=== PATIENT | female | born 1980 | race Caucasian/White ===

== ENCOUNTER → 2018-02-24 15:40 | Outpatient (REF) | payer MEDICAID, SELFPAY ==
[2018-02-26 14:46] LABS: Chlamydia Result Negative; GC Result Negative; Specimen Description CERVIX
== END ==
LOC: LBN 15:40
PROVIDERS: PCP Neuromusculoskeletal Medicine & OMM; Visit Provider Obstetrics & Gynecology Gynecology
DX: R10.2 Pelvic and perineal pain (principal); N76.0 Acute vaginitis
CPT/HCPCS: 87077; 87491; 87591; 87086; 87480; 87510; 87660

== ENCOUNTER 2018-11-11 12:16 | Outpatient (CLI) | payer MEDICAID, SELFPAY ==
[2018-11-11 12:43] LABS: HCT 39.2 % (36.0-46.0); HGB 13.1 g/dL (12.0-15.5); Mean Corp. HGB Concentration 33.4 g/dL (32.0-36.0); Mean Corpuscular Volume 86.9 fL (80-95); Mean Platelet Volume 11.8 fL (8.0-11.0); Platelet Count 240 x1000/uL (130-400); RBC 4.51 m/cumm (4.00-5.20); RBC Distribution Width 13.1 % (11.7-14.6); White Blood Cell Count 9.78 k/cumm (4.4-10.8)
[2018-11-11 13:53] LABS: Anion Gap 7.6 mmol/L (3-11); BUN 10 mg/dL (7-18); CO2 27.4 mmol/L (21.0-32.0); CREATININE 0.81 mg/dL (0.55-1.02); Calcium 8.5 mg/dL (8.5-10.1); Chloride 101 mmol/L (98-107); Glucose 225 mg/dL (70-100); Potassium 4.3 mmol/L (3.5-5.1); Sodium 136 mmol/L (136-145)
--- NOTE | 2018-11-27 12:23 | W.SURGCON ---
Date of service: 11/12/18 Time of Service: 15:00 History of Present Illness Chief Complaint: Intra-operative consultation for entry into abdomen Narrative: Asked to come into the operating room by Dr. Brewer and Dr. Jonas to assist with entry into the abdomen for a laparoscopic case. There was also mention of possible bowel injury. I gowned and gloved. There was a silk suture that per Dr. Brewer was attached to the possible bowel injury. They described adhesions of bowel to the abdominal wall. I inspected the wound and was unable to really see much. I decided to open the wound inferiorly with a ten blade through the dermis. I used cautery to transect the subcutanous tissue to get down to the fascia. The fascia was grasped with kockers on either side and opened with cuatery. I was able to the identify that the silk suture was actually on the peritoneum. Y did a finger sweep under the peritoneum and there were no adhesions noted. I then was able to look into the abdomen and saw the omentum draping over the bowel. There was no visible small bowel. There was no bruising on the omentum or bile noted. At this time I did not feel that there was indication for me to open the incision any wider as I could not see any bowel. Next I closed part of the distal portion of the fascia with a 0 Vicryl suture. Once it was closed I did another finger sweep. There was no bowel again visualized. I then placed the 11 mm port into the superior portion of the wound without the introducer tip. The abdomen was insufflated and the port was secured with the silk suture that had been placed by Dr. Brewer in the peritoneum. At that point I left the operating room for Dr. Jonas and Dr. Brewer to finish the case. 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) Personal history of cervical dysplasia (Acute 07/13/16) Contraceptive management (Resolved) IUD contraception (Resolved 03/06/16) Iron deficiency anemia (Resolved) Request for sterilization (Resolved) Left shoulder pain Rhinitis Surgical History Status post bilateral salpingectomy (Acute) History of colonoscopy (Resolved) Cervical Conization/LEEP Family History Mother Alcohol abuse Essential hypertension Father Diabetes Arthritis Sister Arthritis Asthma Social History Smoking/Tobacco Use Status: Never Alcohol Intake: current Alcohol Intake frequency: other Substance use type: does not use Do you feel safe at home: Yes Do you feel safe in your relationship?: Yes History History 5 Para 3 Hx # Term Pregnancies 3 Multiple births 1 Hx # Pregnancies 0 Ectopic pregnancies 0 AB induced 0 Hx Number of Living Children 4 AB spontaneous 1 Past Pregnancies Del. Date GA/Weeks # Outcome Route Wgt Sex Labor Lgth Anesthesia Location Prov Complic 12/07/04 38 No Successful vaginal 7 lb 6 oz Male [facility] 08/26/06 40 No Successful vaginal 8 lb [address] Rick 11/07/09 8 No Unsuccessful vaginal 03/18/13 38 Yes Successful vaginal Female aoc 02/28/17 37 No Successful vaginal 7 lb 8 oz Female Delivery Date: 02/28/17 On 11/10/18 @ 22:47 Lolly Guthrie Mikayla Piña Delivery Date: 03/18/13 On 11/10/18 @ 22:47 Lolly Guthrie 2nd twin [id number] Delivery Date: 11/07/09 On 11/10/18 @ 22:39 Lolly Guthrie SAB @ 8w EGA. No complications. Delivery Date: 08/26/06 No notes to display Delivery Date: 12/07/04 No notes to display Results Labs : 11/11/18 12:26 11/11/18 12:26
--- NOTE | 2018-11-27 12:33 | SCONE_ITS ---
Date of service: 11/12/18 Time of Service: 15:00 History of Present Illness Chief Complaint: Intra-operative consultation for entry into abdomen Narrative: Asked to come into the operating room by Dr. Brewer and Dr. Jonas to assist with entry into the abdomen for a laparoscopic case. There was also mention of possible bowel injury. I gowned and gloved. There was a silk suture that per Dr. Brewer was attached to the possible bowel injury. They described adhe sions of bowel to the abdominal wall. I inspected the wound and was unable to really see much. I decided to open the wound inferiorly with a ten blade through the dermis. I used cautery to transect the subcutanous tissue to get down to the fascia. The fascia was grasped with kockers on either side and opened with cuatery. I was able to the identify that the silk suture was actually on the peritoneum. Y did a finger sweep under the peritoneum and there were no adhesions noted. I then was able to look into the abdomen and saw the omentum draping over the bowel. There was no visible small bowel. There was no bruising on the omentum or bile noted. At this time I did not feel that there was in dication for me to open the incision any wider as I could not see any bowel. Next I closed part of the distal portion of the fascia with a 0 Vicryl suture. Once it was closed I did another finger sweep. There was no bowel again visualized. I then placed the 11 mm port into the superior portion of the wound without the introducer tip. The abdomen was insufflated and the port was secured with the silk suture that had been placed by Dr. Brewer in the peritoneum. At that point I left the operating room for Dr. Jonas and Dr. Brewer to finish the case. 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) Personal history of cervical dysplasia (Acute 07/13/16) Contraceptive management (Resolved) IUD contraception (Resolved 08/30/16) Iron deficiency anemia (Resolved) Request for sterilization (Resolved) Left shoulder pain Rhinitis Surgical History Status post bilateral salpingectomy (Acute) History of colonoscopy (Resolved) Cervical Conization/LEEP Family History Mother Alcohol abuse Essential hypertension Father Diabetes Arthritis Sister Arthritis Asthma Social History Smoking/Tobacco Use Status: Never Alcohol Intake: current Alcohol Intake frequency: other Substance use type: does not use Do you feel safe at home: Yes Do you feel safe in your relationship?: Yes History History 5 Para 3 Hx # Term Pregnancies 3 Multiple births 1 Hx # Pregnancies 0 Ectopic pregnancies 0 AB induced 0 Hx Number of Living Children 4 AB spontaneous 1 Past Pregnancies Del. Date GA/Weeks # Outcome Route Wgt Sex Labor Lgth Anesthesia Location Prov Complic 12/07/04 38 No Successful vaginal 7 lb 6 oz Male [facility] 08/26/06 40 No Successful vaginal 8 lb [address] Rick 11/07/09 8 No Unsuccessful vaginal 03/18/13 38 Yes Successful vaginal Female [facility] 02/28/17 37 No Successful vaginal 7 lb 8 oz Female Delivery Date: 02/28/17 On 11/10/18 @ 22:47 Lolly Guthrie Leonardmendozaziyad Piña Delivery Date: 03/18/13 On 11/10/18 @ 22:47 Lolly Guthrie 2nd twin [id number] Delivery Date: 11/07/09 On 11/10/18 @ 22:39 Lolly Guthrie SAB @ 8w EGA. No complications. Delivery Date: 08/26/06 No notes to display Delivery Date: 12/07/04 No notes to display Results Labs : 11/11/18 12:26 11/11/18 12:26
== END 2018-11-11 12:36 ==
PROVIDERS: PCP Neuromusculoskeletal Medicine & OMM; Visit Provider Obstetrics & Gynecology Gynecology
DX: Z30.2 Encounter for sterilization (principal); Z01.818 Encounter for other preprocedural examination
CPT/HCPCS: 36415; 80048; 85027; 86850; 86900; 86901

== ENCOUNTER 2018-11-12 14:14 | Observation (INO) | payer MEDICAID, SELFPAY ==
[2018-11-12] VITALS (15 sets, daily range): BP systolic 115–140; BP diastolic 68–86; PULSE 72–111; RESP 12–24; TEMP 36.2–37.8; O2SAT 92–100
[2018-11-12] MEDS: Lactated Ringers 1,000 ML 125 ML IV ×3 (08:00→13:56)
[2018-11-12] MEDS: PIPERACILLIN/TAZO 3.375 GM in Normal Saline 50 ML IVPB ×2 (10:35→18:46)
--- NOTE | 2018-11-12 11:10 | FALL_PTH ---
PATIENT: LUIS ANTONIO ORTEGA LOC: U#:[id number] AGE/SX: 38/F ROOM: [id number] RE11/12/[address]: Lolly Guthrie : 1980 BED: A DIS: 11/13/2018 SPEC #: [id number] RECD: 11/12/18 12:37 STATUS: TORSTEN REQ #: [id number] RAMIREZ: 11/12/18 11:[address]: Lolly Guthrie DEPT: Surgical Specimen RECD BY: Ronit Noriega ENTERED: 11/12/18 12:37 SP TYPE: Fall OTHR DR: Dick Estevez Tissues: 1 - FALLOPIAN TUBE (STERILIZATION) 2 - FALLOPIAN TUBE (STERILIZATION) Procedures: GROSS AND MICRO LEVEL 2 Comments: [id number]
[2018-11-12] MEDS: Bupivacaine 0.25% Pres-Free 30 ML VIAL (11:23)
--- NOTE | 2018-11-12 12:26 | W.PM.DSUDISC ---
Discharge Plan Disposition Patient Disposition: HOME Condition: Good Discharge Details Attending Provider: Lolly Guthrie Primary Care Provider: Dick Estevez Home Meds and New Rx's Prescriptions: No Action Vyvanse 20 mg capsule 20 mg PO DAILY RF: 0 oxycodone-acetaminophen [Percocet] 5-325 mg tablet 1 tab PO Q6H MDD 4 PRN (Reason: pain) Qty: 10 RF: 0 oxycodone 5 mg tablet 5 mg PO Q6H MDD 4 PRN (Reason: pain) Qty: 20 RF: 0 cetirizine [Zyrtec] 10 MG tablet 10 mg PO DAILY Qty: 30 RF: 3 trazodone 50 MG tablet 50 mg PO PRN Qty: 30 RF: 2 Mirena 1 EACH intrauterine device 1 ea Intrauterine ONCE Qty: 1 RF: 0 Discharge Instructions Additional Instructions: You have skin glue over your incsion. You may peel it off the incision in 5 days. You may bathe and shower. You will begin to have menses after the IUD removal. You may find that it is heavier than previously. Take the Oxycodone for pain along with the Ibuprofen for pain. Ovoid constipation. Stand Alone Forms: [facility] Post Gynecology Surgery, Skylar Hogan ([facility]) Activity:: Activity as Tolerated Diet:: As Tolerated Discharge Orders Discharge Orders: Discharge Order (Routine); Ordered 11/12/18 Ordered By: Lolly Guthrie DS: Diagnosis Discharge Diagnosis (1) Request for sterilization: Status: Acute
[2018-11-12] MEDS: fentaNYL 100 MCG/2 ML VIAL IVP ×4 (12:31→16:39)
[2018-11-12] MEDS: oxyCODONE 5 MG TAB PO (13:05)
[2018-11-12 14:28] LABS: HCT 39.7 % (36.0-46.0); HGB 13.3 g/dL (12.0-15.5); Mean Corp. HGB Concentration 33.5 g/dL (32.0-36.0); Mean Corpuscular Hemoglobin 28.4 pg (27.0-33.0); Mean Corpuscular Volume 84.6 fL (80-95); Mean Platelet Volume 11.5 fL (8.0-11.0); Platelet Count 270 x1000/uL (130-400); RBC 4.69 m/cumm (4.00-5.20); White Blood Cell Count 18.62 k/cumm (4.4-10.8)
[2018-11-12] MEDS: LORazepam 2 MG/ML VIAL 0.5 MG IVP ×3 (14:33→16:40)
--- NOTE | 2018-11-12 15:00 | SCONE_ITS ---
Date of service: 11/12/18 Time of Service: 15:00 History of Present Illness Chief Complaint: Intra-operative consultation for entry into abdomen Narrative: Asked to come into the operating room by Dr. Brewer and Dr. Jonas to assist with entry into the abdomen for a laparoscopic case. There was also mention of possible bowel injury. I gowned and gloved. There was a silk suture that per Dr. Brewer was attached to the possible bowel injury. They described adhesions of bowel to the abdominal wall. I inspected the wound and was unable to really see much. I decided to open the wound inferiorly with a ten blade through the dermis. I used cautery to transect the subcutanous tissue to get down to the fascia. The fascia was grasped with kockers on either side and opened with cuatery. I was able to the identify that the silk suture was actually on the peritoneum. Y did a finger sweep under the peritoneum and there were no adhesions noted. I then was able to look into the abdomen and saw the omentum draping over the bowel. There was no visible small bowel. There was no bruising on the omentum or bile noted. At this time I did not feel that there was indication for me to open the incision any wider as I could not see any bowel. Next I closed part of the distal portion of the fascia with a 0 Vicryl suture. Once it was closed I did another finger sweep. There was no bowel again visualized. I then placed the 11 mm port into the superior portion of the wound without the introducer tip. The abdomen was insufflated and the port was secured with the silk suture that had been placed by Dr. Brewer in the peritoneum. At that point I left the operating room for Dr. Jonas and Dr. Brewer to finish the case. 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) Personal history of cervical dysplasia (Acute 07/13/16) Contraceptive management (Resolved) IUD contraception (Resolved 03/06/16) Iron deficiency anemia (Resolved) Request for sterilization (Resolved) Left shoulder pain Rhinitis Surgical History Status post bilateral salpingectomy (Acute) History of colonoscopy (Resolved) Cervical Conization/LEEP Family History Mother Alcohol abuse Essential hypertension Father Diabetes Arthritis Sister Arthritis Asthma Social History Smoking/Tobacco Use Status: Never Alcohol Intake: current Alcohol Intake frequency: other Substance use type: does not use Do you feel safe at home: Yes Do you feel safe in your relationship?: Yes History History 5 Para 3 Hx # Term Pregnancies 3 Multiple births 1 Hx # Pregnancies 0 Ectopic pregnancies 0 AB induced 0 Hx Number of Living Children 4 AB spontaneous 1 Past Pregnancies Del. Date GA/Weeks # Outcome Route Wgt Sex Labor Lgth Anesthesia Location Prov Complic 12/07/04 38 No Successful vaginal 7 lb 6 oz Male [facility] 08/26/06 40 No Successful vaginal 8 lb [address] Rick 11/07/09 8 No Unsuccessful vaginal 03/18/13 38 Yes Successful vaginal Female aoc 02/28/17 37 No Successful vaginal 7 lb 8 oz Female Delivery Date: 02/28/17 On 11/10/18 @ 22:47 Lolly Guthrie [facility] Delivery Date: 03/18/13 On 11/10/18 @ 22:47 Lolly Guthrie 2nd twin [id number] Delivery Date: 11/07/09 On 11/10/18 @ 22:39 Lolly Guthrie SAB @ 8w EGA. No complications. Delivery Date: 08/26/06 No notes to display Delivery Date: 12/07/04 No notes to display Results Labs : 11/11/18 12:26 11/11/18 12:26 CC:
--- NOTE | 2018-11-12 15:16 | DI.US_ITS ---
SYMPTOMS/DIAGNOSIS: POSTOP PAIN PELVIC ULTRASOUND: Dr. Guthrie was present during the examination. Limited transvaginal examination was performed. The uterus has a normal appearance. The left ovary could not be visualized during the examination. The right ovary measures 3.1 x 2.2 x 2.0 cm. There are follicular cysts present. There is normal blood flow seen to the right ovary. No evidence of torsion is seen. There is free fluid adjacent to the right ovary, approximately 70 cc of fluid is seen. The fluid appears clear. IMPRESSION: 1. Limited postoperative pelvic ultrasound. 2. No gross organ abnormality. 3. Small to moderate amount of free fluid adjacent to the right ovary.
--- NOTE | 2018-11-12 15:51 | ROE_ITS ---
Date of service: 11/12/18 Time of Service: 15:47 Operative Note DATE OF PROCEDURE: 11/12/18 PRE-OP DIAGNOSIS: mulitparity desires sterilization POST-OP DIAGNOSIS: same PROCEDURE: laparoscopic bilateral salpingectomy SURGEON: Lolly Guthrie STUNT WOMAN: Symone Reynolds ANESTHESIA: GETA ESTIMATED BLOOD LOSS: 10 PATHOLOGY: other (bialteral fallopian tubes to pathology) COMPLICATIONS: None Patient was transported to: PACU Patient's condition: stable Indications: 38yo G5, P3L4 female who requested permanent sterilization. She also wished to have her Mirena IUD removed at the time of surgery. Findings: Nl pelvis and adnexa. 1cm paratubal cyst on L fallopian tube Description of the procedure: Patient was taken to the operating room which is placed in the dorsal supine position and general endotracheal anesthesia was administered without difficulty. She was then prepped and draped in the usual sterile fashion. An in and out catherization of the urinary bladder was performed with 200cc of clear susy urine returned. The umbilical fold was infiltrated with quarter percent Marcaine and a scalpel was used to make a vertical 11 mm incision in the umbilical fold. Subcutaneous tissue was bluntly dissected and the rectus fascia was tented up and entered with scalpel and then curved Resendiz scissors. My initial impression was that there had been an entree into a viscous organ. I was unable to appreciate the peritoneal surface digitally and requested Dr. Reynolds to inspect the incision. Dr. Montgomery kindly came to the operating room scrubbed in and extended the vertical incision another 2 cm caudally. This allowed us to incise and mobilize the rectus fascia which allowed better visualization of the initial incision. R einspection of the peritoneal incision confirmed that there was no inadvertant entree into the bowel or adjacent organs with the first incision . The extension of the rectus facia incision was closed with a running 0-Vicryl suture enough to allow placement of a 11 mm trocar and sleeve through the incision. Insufflation with CO2 was used to achieve a pneumoperitoneum. Dr. Reynolds then departed the case. Patient was placed in Trendelenburg and under direct visualization two 5 mm port sites were placed left and right of the midline approximately 6 cm diagonal to the umbilical port. The abdomen was carefully inspected with the above-noted findings. The right fallopian tube was grasped at its fimbriated end tented up and the mesosalpinx was clamped cauterized and incised in a sequential fashion to the level of the right uterine cornua the right uterine cornua was then clamped cauterized and transected and the right fallopian tube and delivered through the 11 mm port. The right fallopian tube pedicle was inspected and noted be hemostatic. Similar technique was carried out on the contralateral fallopian tube. The fallopian tube was removed in its entirety and the left fallopian tube pedicle was noted to be hemostatic. After final inspection of both pedicles pneumoperitoneum was reduced and the right and left 5mm trochars were removed under direct visualization. The Bernard port was removed which allowed decompression of the patient's abdomen. The remaining portion of the rectus fascia incsion was grasped and closed in a running fashion using 0 Vicryl. A second layer of 0 Vicryl was used to close the space above the rectus fascia. The skin of the lower port sites was reapproximated with 4-0 Monocryl in a subcuticular fashion. The skin of the umbilical port site was closed with 4-0 Vicryl in a subcuticular fashion. All incisions were sealed with skin glue. Pt received an intraoperative dose of Zosyn when there was a concern that there had been an injury to the bowel. SCDs in place throughout the entire case. All sponge lap needle counts were correct x2
[2018-11-12] MEDS: HYDROmorphone 2 MG/ML VIAL 1 MG IVP ×2 (16:32→21:32)
--- NOTE | 2018-11-12 16:45 | W.PM.HP.N ---
Date of service: 11/12/18 Time of Service: 16:46 Assessment and Plan (1) Post-op pain: Current visit: Yes Status: Acute Patient will change oral and IV narcotics and observe overnight. History of Present Illness Chief Complaint: Post-operative pain Narrative: Patient is a 38-year-old G4, P3 female who underwent a laparoscopic bilateral salpingectomy earlier today. The surgery was uncomplicated and she was returned to the same day surgery unit and prepared for discharge when she developed bilateral sharp stabbing pain lower abdomen. At the time she was sitting on the bed on the gurney attempting to void. Vital signs are stable she was evaluated by the EC and a service recommended additional fentanyl IV dosing. After approximately 45 minutes 2 doses of 50 mcg IV fentanyl she continued to complain of bilateral pelvic pain. She is unable to get through the pain describing as reminiscent of labor pain and unremitting. An in and out catheterization was performed and 600 cc of clear susy urine was returned. however did nothing to relieve her discomfort. Bedside abd/pelvic u/s was performed. R ovarian cyst present. 70cc of free pelvic fluid unchanged in amount from the beginning to the end of the study. H/H 13.3/39.7. I recommended that the pt be observed overnight for pain control. 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) Personal history of cervical dysplasia (Acute 07/13/16) Request for sterilization (Resolved) Contraceptive management (Resolved) IUD contraception (Resolved 03/06/16) Iron deficiency anemia (Resolved) Left shoulder pain Rhinitis Surgical History Status post bilateral salpingectomy (Acute) Cervical Conization/LEEP Family History Mother Alcohol abuse Essential hypertension Father Diabetes Arthritis Sister Arthritis Asthma Social History Smoking/Tobacco Use Status: Never Alcohol Intake: current Alcohol Intake frequency: other Substance use type: does not use Do you feel safe at home: Yes History History 5 Para 3 Hx # Term Pregnancies 3 Multiple births 1 Hx # Pregnancies 0 Ectopic pregnancies 0 AB induced 0 Hx Number of Living Children 4 AB spontaneous 1 Past Pregnancies Del. Date GA/Weeks # Outcome Route Wgt Sex Labor Lgth Anesthesia Location Prov Complic 12/07/04 38 No Successful vaginal 7 lb 6 oz Male [facility] 08/26/06 40 No Successful vaginal 8 lb [address] Rick 11/07/09 8 No Unsuccessful vaginal 03/18/13 38 Yes Successful vaginal Female aoc 02/28/17 37 No Successful vaginal 7 lb 8 oz Female Delivery Date: 02/28/17 On 11/10/18 @ 22:47 Lolly Guthrie Mikayla Piña Delivery Date: 03/18/13 On 11/10/18 @ 22:47 Lolly Guthrie 2nd twin [id number] Delivery Date: 11/07/09 On 11/10/18 @ 22:39 Lolly Guthrie SAB @ 8w EGA. No complications. Delivery Date: 08/26/06 No notes to display Delivery Date: 12/07/04 No notes to display Meds Home Medications Medication Instructions Recorded Confirmed Type cetirizine [Zyrtec] 10 mg PO DAILY #30 tab-cap 08/08/16 11/12/18 History trazodone 50 mg PO PRN #30 tab-cap 08/08/16 11/11/18 History levonorgestrel [Mirena] 1 ea INTRAUTERINE ONCE #1 implant 05/14/17 11/11/18 Rx lisdexamfetamine 20 mg capsule 20 mg PO DAILY 10/07/18 11/12/18 History oxycodone-acetaminophen 5 mg-325 1 tab PO Q6H PRN #10 tab MDD 4 11/10/18 11/11/18 Rx mg tablet oxycodone 5 mg tablet 5 mg PO Q6H PRN #20 tab MDD 4 11/12/18 11/12/18 Rx Allergies Allergy/AdvReac Type Severity Reaction Status Date / Time devyn flavor Allergy Severe severe Unverified 11/12/18 07:25 hives/throat swelling Exam Const General: other (pain improved but not resolved.) Nutritional Appearance: obese Orientation: alert, awake and oriented x3 Resp Effort & Inspection: normal respiratory effort Auscultation: clear to auscultation bilaterally Cardio Palpation: normal PMI Rate: regular rate Rhythm: regular rhythm GI Palpation: soft, tender (-No incisional pain) and other General: deferred (Mirena as removed to recovery area. No vaginal bleeding noted at that time) Results Labs : 11/12/18 14:20 Laboratory Results - last 24 hr 11/12/18 14:20 WBC 18.62 H D RBC 4.69 Hgb 13.3 Hct 39.7 MCV 84.6 MCH 28.4 MCHC 33.5 RDW 13.0 Plt Count 270 MPV 11.5 H Last Vital Signs Temp 100.0 F H 11/12/18 15:25 Pulse 92 H 11/12/18 15:25 Resp 18 11/12/18 15:25 BP 115/68 11/12/18 15:25 Pulse Ox 94 L 11/12/18 15:25
--- NOTE | 2018-11-12 17:38 | NUR.NOTE ---
Nursing Note: 1511H Patient admitted on Med/surg floor from PACU via stretcher. Alert and oriented x3. VSS. Pain scale 10/10 in her bilateral flank as per patient. Trochar sites exposed to air clean dry and intact. No complaints of nausea/vomiting. Oriented patient to room. Call esqueda with in reach
[2018-11-12] MEDS: Ketorolac 30 MG/ML VIAL IVP ×2 (18:27→23:37)
[2018-11-12] MEDS: Docusate Sodium 100 MG CAP PO (20:08)
[2018-11-12] MEDS: HYDROmorphone 2 MG TAB PO (20:08)
[2018-11-12] MEDS: diphenhydrAMINE 25 MG CAP PO (20:25)
[2018-11-13] VITALS: BP 124/83; PULSE 95; RESP 20; TEMP 36.3; O2SAT 93
[2018-11-13] MEDS: Lactated Ringers 1,000 ML 125 ML IV (01:47)
[2018-11-13] MEDS: HYDROmorphone 2 MG/ML VIAL 1 MG IVP (03:17)
[2018-11-13] MEDS: PIPERACILLIN/TAZO 3.375 GM in Normal Saline 50 ML IVPB (03:26)
[2018-11-13 03:30] VITALS: O2SAT 96
[2018-11-13 03:54] VITALS: BP 120/82; PULSE 96; RESP 14; TEMP 36.4; O2SAT 96
[2018-11-13] MEDS: Ketorolac 30 MG/ML VIAL IVP (06:40)
--- NOTE | 2018-11-13 07:28 | W.PM.DS.N ---
Date of service: 11/13/18 Time of Service: 07:28 DS: Diagnosis Discharge Diagnosis (1) Post-op pain: Status: Acute (2) Status post bilateral salpingectomy: Status: Acute Discharge Plan Disposition Patient Disposition: HOME Condition: Improving Discharge Details Admit Date/Time: 11/12/18 14:14 Admit Provider: Lolly Guthrie Attending Provider: Lolly Guthrie Primary Care Provider: Dick Estevez [facility] Course Hospital Course: Pt presented to [facility] the morning of surgery and underwent a laparoscopic bilateral salpingectomy without complications. In the recovery area she experienced lower pelvic pain that was not relieved with additional doses of Fentanyl and required Lorazepam for anxiety. Based on her continued narcotic requirement she was admitted for overnight observation. Her pain subsided and she was ready for discharge the morning after surgery. Home Meds and New Rx's Prescriptions: No Action Vyvanse 20 mg capsule 20 mg PO DAILY RF: 0 oxycodone-acetaminophen [Percocet] 5-325 mg tablet 1 tab PO Q6H MDD 4 PRN (Reason: pain) Qty: 10 RF: 0 oxycodone 5 mg tablet 5 mg PO Q6H MDD 4 PRN (Reason: pain) Qty: 20 RF: 0 cetirizine [Zyrtec] 10 MG tablet 10 mg PO DAILY Qty: 30 RF: 3 trazodone 50 MG tablet 50 mg PO PRN Qty: 30 RF: 2 Mirena 1 EACH intrauterine device 1 ea Intrauterine ONCE Qty: 1 RF: 0 Discharge Instructions Additional Instructions: You have skin glue over your incsion. You may peel it off the incision in 5 days. You may bathe and shower. You will begin to have menses after the IUD removal. You may find that it is heavier than previously. Take the Oxycodone for pain along with the Ibuprofen for pain. Ovoid constipation. Stand Alone Forms: [facility] Post Gynecology Surgery, Skylar Hogan ([facility]) Activity:: Activity as Tolerated Equipment/Supplies:: No Equipment Needed Diet:: As Tolerated Discharge Orders Discharge Orders: Discharge Order (Routine); Ordered 11/13/18 Ordered By: Lolly Guthrie Exam Const General: no acute distress Nutritional Appearance: obese Orientation: alert, awake and oriented x3 Skin General skin exam: ecchymosis (along umbilical port site) and scars (intact. covered with skin glue) Lesions: no lesions DS: Data Vitals/I&O Vitals and I&O: Vital Signs Temperature 97.5 F L 11/13/18 03:54 Temperature Source Tympanic 11/13/18 03:54 Pulse 96 H 11/13/18 03:54 Pulse Rhythm Regular 11/13/18 03:30 Respiratory Rate 14 11/13/18 03:54 Respiratory Effort Non-Labored 11/13/18 03:30 Respiratory Depth Normal 11/13/18 03:30 Respiratory Pattern Normal 11/13/18 03:30 Blood Pressure 120/82 11/13/18 03:54 Pulse Oximetry 96 11/13/18 03:54 Respiratory End-tidal CO2 34 11/12/18 12:40 Oxygen Delivery Method Room Air 11/13/18 03:54 Oxygen Flow Rate 0 11/13/18 03:54 Pain Level 7 11/13/18 03:30 Intake & Output 11/12/18 11/12/18 11/13/18 11:59 23:59 11:59 Intake Total 1600 / 2796.25 1196.25 / 2796.25 747.917 / 747.917 Output Total 500 / 500 Balance 1600 / 2296.25 696.25 / 2296.25 747.917 / 747.917 Weight 229 lb 0.964 oz Intake: IV 1600 / 2706.25 1106.25 / 2706.25 497.917 / 497.917 Oral 90 / 90 250 / 250 Output: Urine 500 / 500 Other: Urine Color Yellow Urine Appearance Clear Clear Urine Odor None Emesis Description None None Voiding Methods Toilet Labs on day of discharge: Labs from last 24 hours 11/12/18 14:20 WBC 18.62 H D RBC 4.69 Hgb 13.3 Hct 39.7 MCV 84.6 MCH 28.4 MCHC 33.5 RDW 13.0 Plt Count 270 MPV 11.5 H PFSH Medical History Post-op pain (Acute) History of female sterilization (Acute) Adjustment disorder with anxiety (Acute 12/26/16) Allergic rhinitis (Acute 10/11/14) Asthma (Acute 10/11/14) 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) Personal history of cervical dysplasia (Acute 07/13/16) Request for sterilization (Resolved) Contraceptive management (Resolved) IUD contraception (Resolved 03/06/16) Iron deficiency anemia (Resolved) Left shoulder pain Rhinitis Surgical History Status post bilateral salpingectomy (Acute) Cervical Conization/LEEP Family History Mother Alcohol abuse Essential hypertension Father Diabetes Arthritis Sister Arthritis Asthma Social History Smoking/Tobacco Use Status: Never Alcohol Intake: current Alcohol Intake frequency: other Substance use type: does not use Do you feel safe at home: Yes History History 5 Para 3 Hx # Term Pregnancies 3 Multiple births 1 Hx # Pregnancies 0 Ectopic pregnancies 0 AB induced 0 Hx Number of Living Children 4 AB spontaneous 1 Past Pregnancies Del. Date GA/Weeks # Outcome Route Wgt Sex Labor Lgth Anesthesia Location Prov Complic 12/07/04 38 No Successful vaginal 7 lb 6 oz Male [facility] 08/26/06 40 No Successful vaginal 8 lb [address] Rick 11/07/09 8 No Unsuccessful vaginal 03/18/13 38 Yes Successful vaginal Female aoc 02/28/17 37 No Successful vaginal 7 lb 8 oz Female Delivery Date: 02/28/17 On 11/10/18 @ 22:47 Lolly Guthrie [facility] Pi[facility] Delivery Date: 03/18/13 On 11/10/18 @ 22:47 Lolly Guthrie 2nd twin [id number] Delivery Date: 11/07/09 On 11/10/18 @ 22:39 Lolly Guthrie SAB @ 8w EGA. No complications. Delivery Date: 08/26/06 No notes to display Delivery Date: 12/07/04 No notes to display
[2018-11-13 07:35] VITALS: BP 98/62; PULSE 102; RESP 18; TEMP 36.5; O2SAT 98
--- NOTE | 2018-11-13 08:05 | PDOC.CMIN ---
- If Service Date Differs Date of service: 11/13/18 Time of Service: 08:05 Care Management Initial Assess REASON FOR HOSPITALIZATION:: Post op pain PAST MEDICAL HISTORY/PAST SURGICAL HISTORY:: Post-op pain (Acute). History of female sterilization (Acute). Adjustment disorder with anxiety (Acute 12/26/16). Allergic rhinitis (Acute 10/11/14). Asthma (Acute 10/11/14). 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 Personal history of cervical dysplasia (Acute 07/13/16). Request for sterilization (Resolved). Contraceptive management (Resolved). IUD contraception (Resolved 03/06/16). Iron deficiency anemia (Resolved). Left shoulder pain. Rhinitis. Status post bilateral salpingectomy (Acute). Cervical Conization/LEEP PREVIOUS FUNCTIONAL STATUS/SOCIAL/FAMILY SUPPORTS:: Angeline resides with her five children in [place] whom range from 13 y/o to 20 months. She reports that she has family whom reside locally and are supportive. 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 She is independent at baseline, drives, and manages ADL's CURRENT FUNCTIONAL STATUS:: Currently Angeline is sitting up in her chair with a cool cloth on her head. She reports that she is in pain, and that she has been discharged. ADVANCE DIRECTIVES:: None on file Has patient been provided with information about the portal?: No Did the patient sign up for the portal?: No (already signed up) CODE STATUS:: Full Code INSURANCE COVERAGE / FINANCIAL ISSUES:: [employer] CURRENT HOME/COMMUNITY SERVICES/EQUIPMENT:: Currently Angeline has no services or medical equipment in the community. PRIMARY CARE PHYSICIAN:: Dick Estevez POTENTIAL DISCHARGE NEEDS:: F/U appointment with Dr. Guthrie PATIENT/FAMILY EDUCATION NEEDS:: Review DC instructions, any limitations, and ongoing DC planning discussion. Discuss 'Ask Me Three' ANTICIPATED BARRIERS TO DISCHARGE:: None identified at this time. TRANSPORTATION:: Via private vehicle with mom PLAN:: Angeline will return home today with no services. She will F/U with Dr. Guthrie and plan of care as prescribed. Angeline's mom will transport her home.
[2018-11-13] MEDS: Docusate Sodium 100 MG CAP PO (08:09)
[2018-11-13] MEDS: HYDROmorphone 2 MG TAB PO (08:55)
--- NOTE | 2018-11-13 10:07 | PDOC.CMDIS ---
- If Service Date Differs Date of service: 11/13/18 Time of Service: 10:07 LACE Index Scoring Tool - Questions: Length of Stay (in days): 1 Acuity (Admit via E.D.?): No E.D. Visits: 0 - Answers: Total Score: 1 Risk of Readmission: Low Risk Care Management Discharge Reason for Hospitalization: Post op pain Discharge Plan: Angeline will return home today with no services. She will F/U with PCP and plan of care as prescribed. Angeline's mom will transport her home. Patient/Family Education Needs: Review DC instructions, any limitations, and discuss 'Ask Me Three'
== END 2018-11-13 10:13 | disposition home or self-care (01) ==
LOC: MS 16:29
PROVIDERS: Admitting Provider Obstetrics & Gynecology Gynecology; PCP Neuromusculoskeletal Medicine & OMM; Visit Provider Obstetrics & Gynecology Gynecology
PROC: 0UB74ZZ Excision of Bilateral Fallopian Tubes, Percutaneous Endoscopic Approach (ICD-10-PCS; CPT 58661; principal; 2018-11-12 09:00)
DX: G89.18 Other acute postprocedural pain (principal); Z90.79 Acquired absence of other genital organ(s); Z30.2 Encounter for sterilization; R10.2 Pelvic and perineal pain; Z30.432 Encounter for removal of intrauterine contraceptive device; N83.8 Other noninflammatory disorders of ovary, fallopian tube and broad ligament
CPT/HCPCS: 58661; 36415; 85027; 76830; 88302; G0378; J0131; J1100; J1885; J2060; J2250; J2405; J2543; J3010

== ENCOUNTER 2018-11-14 19:27 | Inpatient (IN) | payer MEDICAID, SELFPAY ==
[2018-11-14] VITALS (7 sets, daily range): BP systolic 96–119; BP diastolic 59–68; PULSE 102–112; RESP 20–32; TEMP 36.6–37.1; O2SAT 91–96
--- NOTE | 2018-11-14 19:52 | DI.CT_ITS ---
SYMPTOM/DIAGNOSIS: HYPOXIA, TACHYCARDIA, ABD PAIN, S/P TUBAL LIGATION, SOB PE CHEST CT: CT angiography was performed with multi slice acquisition and multi planar and 3D reconstruction. No evidence of pulmonary emboli or aortic dissection or aneurysm. Dependent changes are seen in the posterior lungs. There are small bilateral pleural effusions, right greater than left. The heart size is normal. No pericardial effusion is seen. There is no evidence of adenopathy or focal infiltrate. IMPRESSION: Small bilateral pleural effusions. No evidence of pulmonary emboli. ABDOMEN AND PELVIC CT: The exam is limited by patient motion. The liver shows fatty infiltration. The spleen, gallbladder, pancreas, kidneys and adrenals are unremarkable. The patient is status post surgery 2 days ago for ruptured ovarian cyst/tubal ligation. Fluid is seen in the pelvis as well as in the mesentery. There is residual free air, also presumably post surgical. There is a question of some mild bowel wall thickening of loops of small bowel in the upper abdomen. No focal abscess is seen. The bladder is unremarkable. The ovaries are not well seen as they are surrounded by fluid. There is soft tissue stranding in the anterior subcutaneous fat consistent with recent surgery. IMPRESSION: Abdominal and pelvic ascites as well as free air presumably post surgical. No abscess is identified. There is mild wall thickening of small bowel loops in the upper mid abdomen without evidence of obstruction. The findings could be reactive.
--- NOTE | 2018-11-14 19:53 | ED.GENADUL_ITS ---
Discharge Plan Disposition Patient Disposition: [facility] INPATIENT Condition: Stable Discharge Details Chief Complaint: Abd Prob Clinical Impression: Post-op pain, Leukocytosis Admit Date/Time: 11/14/18 23:26 Admit Provider: Carlos Dumont Attending Provider: Carlos Dumont Primary Care Provider: Dick Estevez ED Provider: Grant Koroma Discharge Data Discharge Date/Time-TO BE ENTERED AT DEPARTURE: 11/15/18 00:31 Medical Decision Making 38 yo female who underwent a laparoscopic bilateral salpingectomy without complications on Saturday and admitted overnight for pain control comes in with cntinued increased pain, nausea despite home pain meds. Her abdomen does have some distention and has tenderness throughout on exam without guarding or rebound on exam. Incision without signs of infection. She is noted to have an o2 saturation of 91% on room air and HR of 105. Given recent surgery and her symptoms and vitals will obtian lab work and imaging to eval for Pe and also abscess vs sbo among other abdominal surgical pathology pt's labs show wbc of 28, on my read of ct has small bilateral pleural effusions and free fluid in the abdomen. Blood cultures ordered, lactate reassuring. Spoke with Dr. Craven from obn who will come see the pt and will order zosyn Vrad report reviewed and confirm bilateral small effusions and free fluid in the abodmen and small amount of pneumoperitoneum. Dr. Craven seeing the pt now, operative note states there was concern about possible bowel injury, will consult with general surgery as well as concern for possible bowel performation Differential Diagnosis sbo, abscess, pe Medical Records Medical records reviewed: Yes I reviewed the patient's medical records. Imaging Data Radiologic Study: Attestation: I personally reviewed and interpreted this imaging study as follows: Imaging: CT Scan Radiologist's impression: IMPRESSION: Aside from mild enteritis in some small bowel loops at the midabdomen, the r emainder of the abdominal pelvic findings are most likely post operative in etiology. The low to moderate volume abdominal ascites are most likely related to residual ruptured cyst fluid, with a likely superimposed postoperative component. There is no discrete evidence of abscess formation at this time, however followup is recommended if patient develops concerning clinical symptoms. IMPRESSION: 1. No pulmonary emboli within the main pulmonary arteries or proximal segmental branches. Distal segmental branches are not confidently evaluated due to motion artifact. 2. Small bilateral layering pleural effusions, larger on the right. 3. Bilateral pulmonary atelectasis, as detailed above. Lab Data Lab results reviewed: Yes I reviewed the patient's lab results. ECG Data Attestation: I personally reviewed and interpreted this ECG (s) as follows: Prior ECG tracings: not available for review Interpretation: sinus rhythm, rate of 103, pr 142, no acute st t wave ischemic findings HPI General Mode of arrival: wheelchair . Date/Time Provider Initiated Documentation: 11/14/18 19:40 . Limitations to Documentation: no limitations . Information obtained by: patient . History of Present Illness 38 year old F presents to the emergency department with the chief complaint of abdominal pain, described as severe, Quality is described as aching, Patient started experiencing this day(s) (1) and it has been constant. No relieving factors improve symptom(s), No exacerbating factors reported . Patient notes nausea/vomiting. Patient did receive the following treatments prior to arrival, none Related Data Home Medications Medication Instructions Recorded Confirmed cetirizine [Zyrtec] 10 mg PO DAILY #30 tab-cap 08/08/16 11/14/18 trazodone 50 mg PO PRN #30 tab-cap 08/08/16 11/14/18 lisdexamfetamine 20 mg capsule 20 mg PO DAILY 10/07/18 11/14/18 oxycodone-acetaminophen 5 mg-325 1 tab PO Q6H PRN #10 tab MDD 4 11/10/18 11/11/18 mg tablet oxycodone 5 mg tablet 5 mg PO Q6H PRN #20 tab MDD 4 11/12/18 11/14/18 hydromorphone 2 mg tablet 2 mg PO Q6H PRN #4 tab MDD 4 11/13/18 11/14/18 Previous Rx's Medication Instructions Recorded oxycodone-acetaminophen 5 mg-325 1 tab PO Q6H PRN #10 tab MDD 4 11/10/18 mg tablet oxycodone 5 mg tablet 5 mg PO Q6H PRN #20 tab MDD 4 11/12/18 hydromorphone 2 mg tablet 2 mg PO Q6H PRN #4 tab MDD 4 11/13/18 Allergies Allergy/AdvReac Type Severity Reaction Status Date / Time devyn flavor Allergy Severe severe Unverified 11/14/18 19:39 hives/throat swelling General Stated Complaint: Abd Prob ALINE: 3 Review of Systems Review of Systems All systems reviewed & are unremarkable except as noted in HPI and below Constitutional Denies chills, Denies fever(s) and Denies weakness ENT Denies change in voice Respiratory Denies cough Gastrointestinal Denies vomiting Integumentary/Breasts Denies rash Neurologic Denies weakness PFSH Medical History Post-op pain (Acute) History of female sterilization (Acute) Adjustment disorder with anxiety (Acute 12/26/16) Allergic rhinitis (Acute 10/11/14) Asthma (Acute 10/11/14) 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) Personal history of cervical dysplasia (Acute 07/13/16) Contraceptive management (Resolved) IUD contraception (Resolved 03/06/16) Iron deficiency anemia (Resolved) Request for sterilization (Resolved) Left shoulder pain Rhinitis Surgical History Status post bilateral salpingectomy (Acute) History of colonoscopy (Resolved) Cervical Conization/LEEP Family History Mother Alcohol abuse Essential hypertension Father Diabetes Arthritis Sister Arthritis Asthma Social History Smoking/Tobacco Use Status: Never Alcohol Intake: current Alcohol Intake frequency: other Substance use type: does not use Do you feel safe at home: Yes Do you feel safe in your relationship?: Yes History History 5 Para 3 Hx # Term Pregnancies 3 Multiple births 1 Hx # Pregnancies 0 Ectopic pregnancies 0 AB induced 0 Hx Number of Living Children 4 AB spontaneous 1 Past Pregnancies Del. Date GA/Weeks # Outcome Route Wgt Sex Labor Lgth Anesthesia Location Prov Complic 12/07/04 38 No Successful vaginal 3.345 kg Male [facility] 08/26/06 40 No Successful vaginal 3.[address] Rick 11/07/09 8 No Unsuccessful vaginal 03/18/13 38 Yes Successful vaginal Female aoc 02/28/17 37 No Successful vaginal 3.402 kg Female Delivery Date: 02/28/17 On 11/10/18 @ 22:47 Lolly Guthrie Yungindra DuncanWang Delivery Date: 03/18/13 On 11/10/18 @ 22:47 Lolly Guthrie 2nd twin [id number] Delivery Date: 11/07/09 On 05/06/19 @ 22:39 Lolly Guthrie SAB @ 8w EGA. No complications. Delivery Date: 08/26/06 No notes to display Delivery Date: 12/07/04 No notes to display Exam Const General: no acute distress Orientation: alert HENMT Head: normal to inspection Ears: external ears normal General nose exam: external nose normal Mouth: moist mucous membranes Eyes General: appearance normal, both eyes and all related structures Neck Neck: normal visual inspection Resp Effort & Inspection: normal respiratory effort and able to speak in complete sentences Cardio Rate: regular rate GI Inspection: other (midline incision below umbilicus without discharge or erythema) Skin General skin exam: no rashes or lesions noted Neuro General: alert and oriented x3 Extrem General: normal to inspection Psych Mental Status: mental status grossly normal Course Vital Signs Temperature 37.0 C 11/14/18 19:31 Pulse 109 H 11/14/18 19:31 Respiratory Rate 20 11/14/18 19:31 Blood Pressure 113/68 11/14/18 19:31 Pulse Oximetry 91 L 11/14/18 19:31 Temperature 37.0 C 11/14/18 19:31 Temperature Source Skin 11/14/18 19:31 Pulse 109 H 11/14/18 19:31 Respiratory Rate 20 11/14/18 19:31 Respiratory Effort Non-Labored 11/14/18 19:37 Blood Pressure 113/68 11/14/18 19:31 Pulse Oximetry 91 L 11/14/18 19:31 Oxygen Delivery Method Room Air 11/14/18 19:31 Oxygen Flow Rate 0 11/14/18 19:31 Pain Level 9 11/14/18 19:51
[2018-11-14] MEDS: Ketorolac 15 MG/ML VIAL IVP (20:04)
[2018-11-14] MEDS: Omnipaque 350 MG/ML 100 ML BTL IJ (20:17)
[2018-11-14 20:23] LABS: Absolute Lymphocyte Count 0.85 k/cumm (1.2-3.4); HCT 40.5 % (36.0-46.0); HGB 13.2 g/dL (12.0-15.5); Mean Corp. HGB Concentration 32.6 g/dL (32.0-36.0); Mean Corpuscular Hemoglobin 28.2 pg (27.0-33.0); Mean Corpuscular Volume 86.5 fL (80-95); Mean Platelet Volume 12.3 fL (8.0-11.0); Platelet Count 286 x1000/uL (130-400); RBC 4.68 m/cumm (4.00-5.20); RBC Distribution Width 13.6 % (11.7-14.6)
[2018-11-14] MEDS: Normal Saline 1,000 ML 1000 ML IV (20:32)
[2018-11-14 20:35] LABS: ALT 19 U/L (12-78); AST 12 U/L (15-37); Albumin 2.5 g/dL (3.4-5.0); Alkaline Phosphatase 90 U/L (46-116); Anion Gap 11.1 mmol/L (3-11); BUN 15 mg/dL (7-18); Bilirubin, Total 0.7 mg/dL (0.2-1.0); CO2 23.9 mmol/L (21.0-32.0); CREATININE 0.84 mg/dL (0.55-1.02); Calcium 9.1 mg/dL (8.5-10.1); Chloride 96 mmol/L (98-107); Glucose 208 mg/dL (70-100); INR 1.1 (0.9-1.1); Potassium 3.5 mmol/L (3.5-5.1); Prothrombin Time 10.5 sec (9.3-11.0); Sodium 131 mmol/L (136-145); Total Protein 7.4 g/dL (6.4-8.2)
[2018-11-14 20:38] LABS: Absolute Monocyte Count 1.14 k/cumm (0.11-0.7); Absolute Neutrophil Count 26.42 k/cumm (1.2-6.7); Diff Comment Manual Differential; RBC Morphology Normal; White Blood Cell Count 28.41 k/cumm (4.4-10.8)
[2018-11-14] MEDS: ACETAMINOPHEN 1,000 MG/100 ML BTL 400 MG IVPB (20:43)
[2018-11-14 20:57] LABS: PTT Activated 25.2 sec (21.0-31.4)
--- NOTE | 2018-11-14 21:00 | DI.VRAD_ITS ---
EXAM: CT Angiography Chest With Contrast EXAM DATE/TIME: 11/14/2018 7:53 PM CLINICAL HISTORY: 38 years old, female; Generalized; Prior surgery; Surgery date: Post-operative (0-2 days); Surgery type: S/P surgery for ruptured ovarian cyst 2 days ago, ; patient HX: SOB, abdominal pain tachy, hypoxia TECHNIQUE: Imaging protocol: Axial computed tomographic angiography images of the chest with intravenous contrast using CT angiography protocol. Coronal and sagittal reformatted images were created and reviewed. 3D rendering: MIP reconstructed images were created and reviewed. Radiation optimization: All CT scans at this facility use at least one of these dose optimization techniques: automated exposure control; mA and/or kV adjustment per patient size (includes targeted exams where dose is matched to clinical indication); or iterative reconstruction. Contrast material: OMNIPAQUE 350; Contrast volume: 100 ml; Contrast route: IV; COMPARISON: No relevant prior studies available. FINDINGS: Pulmonary arteries: No large pulmonary emboli noted within the main pulmonary arteries or proximal segmental branches. Distal segmental branches are difficult to evaluate due to motion artifact. Aorta: Normal. No aortic aneurysm. No aortic dissection. Lungs: There is bilateral dependent and compressive atelectasis. Remainder of the lungs appear grossly clear. Pleural space: Small/layering bilateral pleural effusions are present, slightly larger on the right. Heart: Normal. No cardiomegaly. No pericardial effusion. Lymph nodes: Unremarkable. No enlarged lymph nodes. Bones/joints: No acute skeletal abnormality or aggressive osseous lesion. Soft tissues: Unremarkable. IMPRESSION: 1. No pulmonary emboli within the main pulmonary arteries or proximal segmental branches. Distal segmental branches are not confidently evaluated due to motion artifact. 2. Small bilateral layering pleural effusions, larger on the right. 3. Bilateral pulmonary atelectasis, as detailed above. EXAM: CT Angiography Abdomen With Contrast EXAM DATE/TIME: 11/14/2018 7:53 PM CLINICAL HISTORY: 38 years old, female; Generalized; Prior surgery; Surgery date: Post-operative (0-2 days); Surgery type: S/P surgery for ruptured ovarian cyst 2 days ago, ; patient HX: SOB, abdominal pain tachy, hypoxia TECHNIQUE: Imaging protocol: Axial computed tomographic angiography images of the abdomen with intravenous contrast material. Coronal and sagittal reformatted images were created and reviewed. 3D rendering: MIP reconstructed images were created and reviewed. Radiation optimization: All CT scans at this facility use at least one of these dose optimization techniques: automated exposure control; mA and/or kV adjustment per patient size (includes targeted exams where dose is matched to clinical indication); or iterative reconstruction. Contrast material: OMNIPAQUE 350; Contrast volume: 100 ml; Contrast route: IV; COMPARISON: No relevant prior studies available. FINDINGS: Lungs: Unremarkable. No consolidation. VASCULATURE: Aorta: No aortic aneurysm. No aortic dissection. Celiac trunk and mesenteric arteries: No occlusion or significant stenosis. Renal arteries: No occlusion or significant stenosis. ABDOMEN: Liver: No acute liver pathology. Gallbladder and bile ducts: Normal morphology. No radio opaque gallstones. No acute pathology. No biliary ductal dilation. Pancreas: Normal morphology. No focal lesions or acute pathology. Normal size. Spleen: Normal morphology. No focal lesions or acute pathology. Normal size. Adrenals: Normal morphology. No focal lesions or acute pathology. Normal size. Kidneys and ureters: Normal morphology. No focal lesions or acute pathology. Normal size. Stomach and bowel: There are several small bowel loops at the mid abdomen which demonstrate wall thickening and mild hyperenhancement. There is no discrete evidence of bowel obstruction noted at this time. Intraperitoneal space: There is diffuse low volume abdominal pelvic ascites. No rim-enhancing fluid collections are grossly noted at this time. There is post operative pneumoperitoneum present. Bones/joints: No acute skeletal abnormality or aggressive osseous lesions are present. Soft tissues: There are postsurgical changes of the anterior abdominal wall. Lymph nodes: No adenopathy. IMPRESSION: Aside from mild enteritis in some small bowel loops at the midabdomen, the remainder of the abdominal pelvic findings are most likely post operative in etiology. The low to moderate volume abdominal ascites are most likely related to residual ruptured cyst fluid, with a likely superimposed postoperative component. There is no discrete evidence of abscess formation at this time, however followup is recommended if patient develops concerning clinical symptoms. Dictated and Authenticated by: Carlos Zhao MD. Ordering:DAYNE Burns MD
[2018-11-14 21:07] LABS: Lactate-non-spesis 1.2 mmol/l (0.6-1.4)
[2018-11-14] MEDS: PIPERACILLIN/TAZO 4.5 GM in Normal Saline 100 ML IVPB (21:13)
--- NOTE | 2018-11-14 22:50 | NUR.NOTE ---
Dr. Andino at bedside to evaluate pt.
[2018-11-14] MEDS: fentaNYL 100 MCG/2 ML VIAL 75 MCG IVP (23:18)
--- NOTE | 2018-11-14 23:48 | W.PM.HP.N ---
Date of service: 11/14/18 Time of Service: 23:48 Assessment and Plan (1) Post-op pain: Current visit: No Status: Acute Postoperative abdominal pain and significant leukocytosis. She did undergo a CT of the chest and abdomen showing mild enteritis and some fluid which was felt to be residual from the ruptured ovarian cyst at the time of surgery. No significant free air is noted. CT of the chest shows a small pleural effusion and is negative for PE. Because of her significant leukocytosis and abdominal pain will obtain a surgery consult as bowel injury is a consideration. Will admit to med surg and start zosyn. Repeat labs in am. (2) Leukocytosis: Current visit: No Status: Acute History of Present Illness Chief Complaint: Abdominal pain Narrative: 38-year-old presents to the emergency department with complaints of severe abdominal pain. She underwent lap scopic bilateral salpingectomy this last Saturday and is now postoperative day #2. She states that her pain is been uncontrolled. She has not had a bowel movement is not passing flatus. She has minimal nausea but no vomiting. She reports fevers at home but is afebrile here in the emergency room. In addition she reports a productive cough with clear sputum. She denies any sick contacts at home. 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) Personal history of cervical dysplasia (Acute 07/13/16) Contraceptive management (Resolved) IUD contraception (Resolved 03/06/16) Iron deficiency anemia (Resolved) Request for sterilization (Resolved) Left shoulder pain Rhinitis Surgical History Status post bilateral salpingectomy (Acute) History of colonoscopy (Resolved) Cervical Conization/LEEP Family History Mother Alcohol abuse Essential hypertension Father Diabetes Arthritis Sister Arthritis Asthma Social History Smoking/Tobacco Use Status: Never Alcohol Intake: current Alcohol Intake frequency: other Substance use type: does not use Do you feel safe at home: Yes Do you feel safe in your relationship?: Yes History History 5 Para 3 Hx # Term Pregnancies 3 Multiple births 1 Hx # Pregnancies 0 Ectopic pregnancies 0 AB induced 0 Hx Number of Living Children 4 AB spontaneous 1 Past Pregnancies Del. Date GA/Weeks # Outcome Route Wgt Sex Labor Lgth Anesthesia Location Prov Complic 12/07/04 38 No Successful vaginal 7 lb 6 oz Male [facility] 08/26/06 40 No Successful vaginal 8 lb [address] Rick 11/07/09 8 No Unsuccessful vaginal 03/18/13 38 Yes Successful vaginal Female aoc 02/28/17 37 No Successful vaginal 7 lb 8 oz Female Delivery Date: 02/28/17 On 11/10/18 @ 22:47 Lolly Guthrie Mikayla Piña Delivery Date: 03/18/13 On 11/10/18 @ 22:47 Lolly Guthrie 2nd twin [id number] Delivery Date: 11/07/09 On 11/10/18 @ 22:39 Lolly Guthrie SAB @ 8w EGA. No complications. Delivery Date: 08/26/06 No notes to display Delivery Date: 12/07/04 No notes to display Meds Home Medications Medication Instructions Recorded Confirmed Type cetirizine [Zyrtec] 10 mg PO DAILY #30 tab-cap 08/08/16 11/14/18 History oxycodone 5 mg tablet 5 mg PO Q6H PRN #20 tab MDD 4 11/12/18 11/14/18 Rx hydromorphone 2 mg tablet 2 mg PO Q6H PRN #4 tab MDD 4 11/13/18 11/14/18 Rx enoxaparin [Lovenox] 40 mg SUBCUT Q24H PRN #10 ml 11/17/18 Rx fentanyl citrate (PF) 100 mcg IVP Q1H PRN PRN #1 ml 11/17/18 Rx Allergies Allergy/AdvReac Type Severity Reaction Status Date / Time devyn flavor Allergy Severe severe Unverified 11/14/18 19:39 hives/throat swelling Exam Resp Other: Breath sounds diminished in bases. Otherwise clear to auscultation. Cardio Rate: regular rate Rhythm: regular rhythm Other: Tachycardic GI Other: Diffuse tenderness. No rebound, no guarding. No rigidity. Bowel sounds are hypoactive. Results Labs : 11/17/18 07:25 11/17/18 07:25 Laboratory Results - last 24 hr 11/14/18 11/14/18 11/14/18 19:55 19:55 19:55 WBC 28.41 H* RBC 4.68 Hgb 13.2 Hct 40.5 MCV 86.5 MCH 28.2 MCHC 32.6 RDW 13.6 Plt Count 286 MPV 12.3 H Immature Gran % 0.0 Neutrophils % 88.0 Band Neutrophils % 5.0 Lymphocytes % 3.0 Monocytes % 4.0 Eosinophils % 0.0 Basophils % 0.0 Absolute Neutrophils 26.42 H Absolute Lymphocytes 0.85 L Absolute Monocytes 1.14 H Absolute Eosinophils 0.00 Absolute Basophils 0.00 Differential Comment Manual differential RBC Morphology Normal PT 10.5 INR 1.1 APTT Sodium 131 L Potassium 3.5 Chloride 96 L Carbon Dioxide 23.9 Anion Gap 11.1 H BUN 15 Creatinine 0.84 Estimated GFR/1.73 m2 >= 60.00 Glucose 208 H Lactate Calcium 9.1 Magnesium 2.0 Total Bilirubin 0.7 AST 12 L ALT 19 Alkaline Phosphatase 90 Total Protein 7.4 Albumin 2.5 L 11/14/18 11/14/18 19:55 20:50 WBC RBC Hgb Hct MCV MCH MCHC RDW Plt Count MPV Immature Gran % Neutrophils % Band Neutrophils % Lymphocytes % Monocytes % Eosinophils % Basophils % Absolute Neutrophils Absolute Lymphocytes Absolute Monocytes Absolute Eosinophils Absolute Basophils Differential Comment RBC Morphology PT INR APTT 25.2 Sodium Potassium Chloride Carbon Dioxide Anion Gap BUN Creatinine Estimated GFR/1.73 m2 Glucose Lactate 1.2 Calcium Magnesium Total Bilirubin AST ALT Alkaline Phosphatase Total Protein Albumin Last Vital Signs Temp 97.9 F 11/14/18 23:25 Pulse 102 H 11/14/18 23:25 Resp 26 H 11/14/18 23:25 BP 104/59 L 11/14/18 23:25 Pulse Ox 95 11/14/18 23:25
[2018-11-15] VITALS (12 sets, daily range): BP systolic 96–124; BP diastolic 57–83; PULSE 98–109; RESP 18–32; TEMP 36.8–38.6; O2SAT 3–96
--- NOTE | 2018-11-15 00:23 | W.SURGCON ---
Date of service: 11/14/18 Time of Service: 22:32 Assessment and Plan (1) Post-op pain: Current visit: No Status: Acute Keep NPO IV fluids IV antibiotics pain control repeat labs in AM serial exams d/w Dr. Dumont History of Present Illness Chief Complaint: post-op abdominal pain, SOB Narrative: This is a 38yo female who is POD#2 s/p an elective lap tubal ligation, and transvaginal IUD removal. There was initially intraoperative concern that there may have been a bowel injury while gaining access to the peritoneum. Dr. Reynolds assisted with access and it was determined that there was no bowel injury. The procedure reportedly was completed without complication. The patient had a spike in pain in the recovery room, and transabdominal and transvaginal ultrasounds were performed revealing ~70cc of fluid in the cul de sac, and the suggestion was made that an ovarian cyst ruptured. The pt remained hospitalized overnight for pain control and antibiotics, and was discharged home on POD#1. Once home, the pt judiciously took the post-op opiates prescribed to her, but had a worsening pain and shortness of breath around 4-6pm on POD#2. She was able to tolerate a PO diet with some nausea, but no vomiting. +Subjective fevers, no chills. No dysuria or difficulty voiding. No flatus/BM since surgery. She states the opiate pill was no longer helping her and she presented to the ED around 7pm. Here, she was found to be afebrile, but had a WBC of 28K, was tachyneic, and tachycardic. CTA of the chest did not reveal any pulomonary emboli, but she does have small pleural effusions, R>L. Abdominal CT demonstrated small to moderate ascites likely reflecting the ruptured cyst and postop changes, and mild enteritis in some small bowel loops, with no abscess formation. General surgery was called to review the findings with the Dr. Dumont of [facility], and evaluate for an acute abdomen. Consults Consult date: 11/14/18 Requesting physician: Carlos Dumont Review of Systems Review of Systems All systems reviewed & are unremarkable except as noted in HPI and below Constitutional Reports as per HPI Respiratory Reports as per HPI Comments: productive cough, with SOB Gastrointestinal Reports abdominal pain, Reports nausea and Denies vomiting Comments: sharp lower abdominal pain, R>L Genitourinary Reports as per HPI Comments: she does not think that she is passing any blood vaginally [facility] Medical History Post-op pain (Acute) History of female sterilization (Acute) Adjustment disorder with anxiety (Acute 12/26/16) Allergic rhinitis (Acute 10/11/14) Asthma (Acute 10/11/14) 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) Personal history of cervical dysplasia (Acute 07/13/16) Contraceptive management (Resolved) IUD contraception (Resolved 03/06/16) Iron deficiency anemia (Resolved) Request for sterilization (Resolved) Left shoulder pain Rhinitis Surgical History Status post bilateral salpingectomy (Acute) History of colonoscopy (Resolved) Cervical Conization/LEEP Family History Mother Alcohol abuse Essential hypertension Father Diabetes Arthritis Sister Arthritis Asthma Social History Smoking/Tobacco Use Status: Never Alcohol Intake: current Alcohol Intake frequency: other Substance use type: does not use Do you feel safe at home: Yes Do you feel safe in your relationship?: Yes History History 5 Para 3 Hx # Term Pregnancies 3 Multiple births 1 Hx # Pregnancies 0 Ectopic pregnancies 0 AB induced 0 Hx Number of Living Children 4 AB spontaneous 1 Past Pregnancies Del. Date GA/Weeks # Outcome Route Wgt Sex Labor Lgth Anesthesia Location Prov Complic 12/07/04 38 No Successful vaginal 7 lb 6 oz Male [facility] 08/26/06 40 No Successful vaginal 8 lb [address] Rick 11/07/09 8 No Unsuccessful vaginal 03/18/13 38 Yes Successful vaginal Female aoc 02/28/17 37 No Successful vaginal 7 lb 8 oz Female Delivery Date: 02/28/17 On 11/10/18 @ 22:47 Lolly Guthrie Mikayla Piña Delivery Date: 03/18/13 On 11/10/18 @ 22:47 Lolly Guthrie 2nd twin [id number] Delivery Date: 11/07/09 On 11/10/18 @ 22:39 Lolly Guthrie SAB @ 8w EGA. No complications. Delivery Date: 08/26/06 No notes to display Delivery Date: 12/07/04 No notes to display Exam Const General: cooperative, well developed and other (appears slightly uncomfortable) Nutritional Appearance: obese Orientation: alert, awake and oriented x3 HENMT Head: normocephalic and atraumatic Mouth: moist mucous membranes Neck Neck: supple Chest Chest: no crepitus and no tenderness Resp Effort & Inspection: other (tachypneic, initially with shallow breaths but improving respiratory effort) Auscultation: clear to auscultation bilaterally Cardio Rhythm: other (tachycardic) Heart Sounds: S1 normal and S2 normal Pulses: radial pulses present GI Inspection: incision (incisions cleam, no erythema/cellulitus) and obesity Palpation: soft, not firm, no guarding, not rigid and tender (lower abdominal tenderness to deep palpation) Auscultation: normoactive bowel sounds Skin General skin exam: turgor normal and no mottling Neuro General: alert, awake, oriented x3 and moves all extremities Speech: speech normal Extrem General: normal capillary refill and no clubbing, cyanosis or edema Psych Appearance: grossly normal Mental Status: mental status grossly normal Speech and Movement: speech and movement normal Mood: congruent mood Affect: normal affect Attitude: cooperative Thought Process: normal Results Last Vital Signs Temp 97.9 F 11/14/18 23:25 Pulse 98 H 11/15/18 00:13 Resp 24 11/15/18 00:13 BP 100/67 11/15/18 00:13 Pulse Ox 93 L 11/15/18 00:13 Labs : 11/15/18 16:10 11/15/18 09:05 Laboratory Results - last 24 hr 11/14/18 11/14/18 11/14/18 19:55 19:55 19:55 WBC 28.41 H* RBC 4.68 Hgb 13.2 Hct 40.5 MCV 86.5 MCH 28.2 MCHC 32.6 RDW 13.6 Plt Count 286 MPV 12.3 H Immature Gran % 0.0 Neutrophils % 88.0 Band Neutrophils % 5.0 Lymphocytes % 3.0 Monocytes % 4.0 Eosinophils % 0.0 Basophils % 0.0 Absolute Neutrophils 26.42 H Absolute Lymphocytes 0.85 L Absolute Monocytes 1.14 H Absolute Eosinophils 0.00 Absolute Basophils 0.00 Differential Comment Manual differential RBC Morphology Normal PT 10.5 INR 1.1 APTT Sodium 131 L Potassium 3.5 Chloride 96 L Carbon Dioxide 23.9 Anion Gap 11.1 H BUN 15 Creatinine 0.84 Estimated GFR/1.73 m2 >= 60.00 Glucose 208 H Lactate Calcium 9.1 Magnesium 2.0 Total Bilirubin 0.7 AST 12 L ALT 19 Alkaline Phosphatase 90 Total Protein 7.4 Albumin 2.5 L 11/14/18 11/14/18 19:55 20:50 WBC RBC Hgb Hct MCV MCH MCHC RDW Plt Count MPV Immature Gran % Neutrophils % Band Neutrophils % Lymphocytes % Monocytes % Eosinophils % Basophils % Absolute Neutrophils Absolute Lymphocytes Absolute Monocytes Absolute Eosinophils Absolute Basophils Differential Comment RBC Morphology PT INR APTT 25.2 Sodium Potassium Chloride Carbon Dioxide Anion Gap BUN Creatinine Estimated GFR/1.73 m2 Glucose Lactate 1.2 Calcium Magnesium Total Bilirubin AST ALT Alkaline Phosphatase Total Protein Albumin
[2018-11-15] MEDS: Ondansetron 4 MG/2 ML VIAL IVP ×3 (02:19→17:01)
[2018-11-15] MEDS: DEXTROSE 5%-LACTATED RINGERS 1,000 ML 175 ML IV ×3 (02:20→17:03)
[2018-11-15] MEDS: Normal Saline Flush 10 ML SYR IVP ×6 (02:20→17:44)
[2018-11-15] MEDS: fentaNYL 100 MCG/2 ML VIAL 50 MCG IVP ×5 (02:43→17:44)
--- NOTE | 2018-11-15 02:51 | NUR.NOTE ---
Patient was admitted to med/Surg unit with history of abdominal pain, vomiting, nausea after having tubal ligation done on Saturday11/13/18 she also had a ruptured ovarian cyst. Pt is conscious, alert and rational. Patient placed in bed head to toe assessment done.
[2018-11-15] MEDS: PIPERACILLIN/TAZO 3.375 GM in Normal Saline 50 ML IVPB ×3 (04:00→20:18)
[2018-11-15 07:19] LABS: HCT 37.9 % (36.0-46.0); HGB 12.2 g/dL (12.0-15.5); Mean Corp. HGB Concentration 32.2 g/dL (32.0-36.0); Mean Corpuscular Hemoglobin 27.9 pg (27.0-33.0); Mean Corpuscular Volume 86.7 fL (80-95); Mean Platelet Volume 11.9 fL (8.0-11.0); Platelet Count 253 x1000/uL (130-400); RBC 4.37 m/cumm (4.00-5.20); RBC Distribution Width 13.5 % (11.7-14.6)
[2018-11-15 07:37] LABS: White Blood Cell Count 26.98 k/cumm (4.4-10.8)
[2018-11-15] MEDS: ACETAMINOPHEN 1,000 MG/100 ML BTL 400 MG IVPB ×2 (08:35→17:01)
[2018-11-15 09:11] LABS: Lactate-non-spesis 1.4 mmol/l (0.6-1.4)
--- NOTE | 2018-11-15 09:18 | DI.RAD_ITS ---
SYMPTOMS/DIAGNOSIS: REEVALUATE PLEURAL EFFUSIONS AP AND LATERAL CHEST: There are no prior comparison exams. The heart size is within normal limits. The lungs are expiratory on both views. There are tiny bilateral pleural effusions. There is presumed bibasilar atelectasis. Infiltrates cannot be excluded. IMPRESSION: Tiny bilateral pleural effusions and bibasilar infiltrates versus atelectasis.
[2018-11-15 09:26] LABS: ALT 14 U/L (12-78); AST 11 U/L (15-37); Albumin 1.8 g/dL (3.4-5.0); Alkaline Phosphatase 79 U/L (46-116); Anion Gap 8.6 mmol/L (3-11); BUN 15 mg/dL (7-18); Bilirubin, Total 0.8 mg/dL (0.2-1.0); CO2 24.4 mmol/L (21.0-32.0); CREATININE 0.94 mg/dL (0.55-1.02); Chloride 98 mmol/L (98-107); Glucose 284 mg/dL (70-100); Potassium 3.6 mmol/L (3.5-5.1); Sodium 131 mmol/L (136-145)
--- NOTE | 2018-11-15 09:45 | DI.VRAD_ITS ---
EXAM: XR Chest, 2 Views EXAM DATE/TIME: 11/15/2018 9:17 AM CLINICAL HISTORY: 38 years old, female; Signs and symptoms; Other: Reevaluate pleural effusion; Additional info: Best inspiration obtained due to patient condition. TECHNIQUE: Imaging protocol: XR of the chest, 2 views. COMPARISON: CT CHEST PE ABD PELVIS W 11/14/2018 8:11 PM FINDINGS: Lungs: Linear opacity in the left base and opacity in the lateral right base may represent atelectasis or pneumonia. Pleural space: There may be small left pleural effusion. No pneumothorax. Heart/Mediastinum: Stable cardiac silhouette Bones/joints: Stable IMPRESSION: Linear opacity in the left base and opacity in the lateral right base may represent atelectasis or pneumonia. Dictated and Authenticated by: Bri Kauffman MD. Ordering:INOCENCIO Gonzalez MD
--- NOTE | 2018-11-15 10:43 | PHARADMIT ---
Addendum entered by Adele Ball 11/16/18 10:20: Pharmacy Note Subjective went to surgery lst night for perforated bowel. pt intubated at this time Objective afebrile now, I/O +7L, WBC down to 24.94, albumin 1.1, lytes ok, UA prelim no growth Assessment propofol and norepinephrine infusion. pip/tazo day 2, repaet BC taken 11/15 Plan possible extubation today and/or transfer to another facility, watch fluid status, BC results Original Note: Admission Pharmacy Clinical Review post op abdominal pain Code Status Full Code Current Weight 105.7 kg Renally Cleared and Narrow Therapeutic Index Meds crcl ~67ml/min QTc Value / Action Taken 424 BP Control, Fever 112/73 AFEBRILE Electrolytes reviewed Na 131, DVT Prophylaxis no Opiate Usage / Scheduled Bowel Regimen Ordered prn/no Plt/SCr for Heparin / Enoxaparin 253/0.94 INR for Warfarin na H/H stable, WBC/Bands 12.2/37.9 wbc 26.98 Antibiotic appropriateness pip/ricky Cultures and Sensitivities BC pending Surgical ABX d/c within 24 hr na DM control / Insulin Dosing na Heart Failure (Check EF%) (ERUM's, B-Block, Diuretics) na IV to PO Switch IV MEDS , DIET REGULAR Home Meds Reviewed ok Home Meds Not Ordered cetirizine [Zyrtec] 10 mg PO DAILY #30 tab-cap trazodone 50 mg PO PRN #30 tab-cap lisdexamfetamine 20 mg capsule 20 mg PO DAILY oxycodone-acetaminophen 5 mg-325 mg tablet 1 tab PO Q6H PRN oxycodone 5 mg tablet 5 mg PO Q6H PRN #20 tab hydromorphone 2 mg tablet 2 mg PO Q6H PRN Comments
--- NOTE | 2018-11-15 10:45 | BOWEL_PTH ---
PATIENT: LUIS ANTONIO ORTEGA LOC: ICU U#:[id number] AGE/SX: 38/F ROOM: ICU.221 RE11/15/[address]: Lolly Guthrie : 1980 BED: A DIS: 11/17/2018 SPEC #: [id number] RECD: 11/17/18 12:39 STATUS: SOUT REQ #: [id number] RAMIREZ: 11/15/18 10:[address]: Marcial Andino DEPT: Surgical Specimen RECD BY: Ronit Noriega ENTERED: 11/17/18 12:42 SP TYPE: Bowel OTHR DR: Dick Estevez MD Tissues: 1 - BOWEL RESECTION(OTHER) 2 - BOWEL RESECTION(OTHER) Procedures: GROSS AND MICRO LEVEL 5 Comments: [id number]
--- NOTE | 2018-11-15 10:56 | W.PM.PROGNOT ---
Date of Service Date of service: 11/15/18 Time of Service: 10:56 Assessment and Plan (1) Post-op pain: Current visit: Yes Status: Acute Will switch to oral dilaudid for pain. Continue Zosyn for now. CXR shows bilateral small pleural effusions. No free air noted under the diaphragm. I feel that bowel perforation is less likely. Will add incentive spirometry, encourage ambulation. Repeat labs this afternoon. (2) Upper respiratory infection: Current visit: Yes Status: Acute (3) Leukocytosis: Current visit: Yes Status: Acute Subjective Interval history since last seen: Continues to have abdominal pain but not acute abdomen. O2 sats 91% and she reports a productive cough with clear sputum. No flatus today. Exam Resp Other: Breath sounds diminished in bases. No wheezes or rales GI Other: Abdomen is diffusely tender. Hypoactive bowel sounds. No peritoneal signs. Objective Objective Clinical Data: Abnormal lab results 11/14/18 11/14/18 11/15/18 Range/Units 19:55 19:55 07:00 WBC 28.41 H* 26.98 H* (4.4-10.8) k/cumm MPV 12.3 H 11.9 H (8.0-11.0) fL Absolute Neutrophils 26.42 H (1.2-6.7) k/cumm Absolute Lymphocytes 0.85 L (1.2-3.4) k/cumm Absolute Monocytes 1.14 H (0.11-0.7) k/cumm Sodium 131 L (136-145) mmol/L Chloride 96 L (98-107) mmol/L Anion Gap 11.1 H (3-11) mmol/L Glucose 208 H (70-100) mg/dL Calcium (8.5-10.1) mg/dL AST 12 L (15-37) U/L Total Protein (6.4-8.2) g/dL Albumin 2.5 L (3.4-5.0) g/dL 11/15/18 Range/Units 09:05 WBC (4.4-10.8) k/cumm MPV (8.0-11.0) fL Absolute Neutrophils (1.2-6.7) k/cumm Absolute Lymphocytes (1.2-3.4) k/cumm Absolute Monocytes (0.11-0.7) k/cumm Sodium 131 L (136-145) mmol/L Chloride (98-107) mmol/L Anion Gap (3-11) mmol/L Glucose 284 H (70-100) mg/dL Calcium 8.0 L (8.5-10.1) mg/dL AST 11 L (15-37) U/L Total Protein 6.0 L (6.4-8.2) g/dL Albumin 1.8 L (3.4-5.0) g/dL Vital Signs Temperature 99.5 F 11/15/18 10:06 Temperature Source Tympanic 11/15/18 10:06 Pulse 107 H 11/15/18 09:00 Pulse Rhythm Regular 11/15/18 08:00 Respiratory Rate 28 H 11/15/18 09:00 Respiratory Effort 11/15/18 08:00 Respiratory Depth Shallow 11/15/18 08:00 Respiratory Pattern Tachypnea 11/15/18 08:00 Blood Pressure 112/73 11/15/18 09:00 Pulse Oximetry 3 L 11/15/18 09:00 Oxygen Delivery Method Nasal Cannula 11/15/18 09:00 Oxygen Flow Rate 2 11/15/18 09:00 Pain Level 5 11/15/18 10:43 Comment 11/14/18 20:30 Intake & Output 11/14/18 11/14/18 11/15/18 11:59 23:59 11:59 Intake Total 1200 / 1200 1539.167 / 1539.167 Output Total 200 / 200 Balance 1200 / 1200 1339.167 / 1339.167 Weight 233 lb 0.458 oz 233 lb 0.458 oz Intake: IV 1200 / 1200 1049.167 / 1049.167 Oral 490 / 490 Output: Urine 200 / 200 Other: Urine Color Light Leah Urine Appearance Clear Urine Odor Strong Voiding Methods Bedside Commode Laboratory Results WBC 26.98 k/cumm (4.4-10.8) H* 11/15/18 07:00 RBC 4.37 m/cumm (4.00-5.20) 11/15/18 07:00 Hgb 12.2 g/dL (12.0-15.5) 11/15/18 07:00 Hct 37.9 % (36.0-46.0) 11/15/18 07:00 MCV 86.7 fL (80-95) 11/15/18 07:00 MCH 27.9 pg (27.0-33.0) 11/15/18 07:00 MCHC 32.2 g/dL (32.0-36.0) 11/15/18 07:00 RDW 13.5 % (11.7-14.6) 11/15/18 07:00 Plt Count 253 x1000/uL (130-400) 11/15/18 07:00 MPV 11.9 fL (8.0-11.0) H 11/15/18 07:00 Immature Gran % 0.0 11/14/18 19:55 Neutrophils % 88.0 11/14/18 19:55 Band Neutrophils % 5.0 % 11/14/18 19:55 Lymphocytes % 3.0 11/14/18 19:55 Monocytes % 4.0 11/14/18 19:55 Eosinophils % 0.0 11/14/18 19:55 Basophils % 0.0 11/14/18 19:55 Absolute Neutrophils 26.42 k/cumm (1.2-6.7) H 11/14/18 19:55 Absolute Lymphocytes 0.85 k/cumm (1.2-3.4) L 11/14/18 19:55 Absolute Monocytes 1.14 k/cumm (0.11-0.7) H 11/14/18 19:55 Absolute Eosinophils 0.00 k/cumm (0.0-0.7) 11/14/18 19:55 Absolute Basophils 0.00 k/cumm (0.0-0.2) 11/14/18 19:55 Differential Comment Manual differential 11/14/18 19:55 RBC Morphology Normal 11/14/18 19:55 PT 10.5 sec (9.3-11.0) 11/14/18 19:55 INR 1.1 (0.9-1.1) 11/14/18 19:55 APTT 25.2 sec (21.0-31.4) 11/14/18 19:55 Sodium 131 mmol/L (136-145) L 11/15/18 09:05 Potassium 3.6 mmol/L (3.5-5.1) 11/15/18 09:05 Chloride 98 mmol/L (98-107) 11/15/18 09:05 Carbon Dioxide 24.4 mmol/L (21.0-32.0) 11/15/18 09:05 Anion Gap 8.6 mmol/L (3-11) 11/15/18 09:05 BUN 15 mg/dL (7-18) 11/15/18 09:05 Creatinine 0.94 mg/dL (0.55-1.02) 11/15/18 09:05 Estimated GFR/1.73 m2 >= 60.00 (mL/min/1.73m2) 11/15/18 09:05 Glucose 284 mg/dL (70-100) H 11/15/18 09:05 Lactate 1.4 mmol/l (0.6-1.4) 11/15/18 09:05 Calcium 8.0 mg/dL (8.5-10.1) L 11/15/18 09:05 Magnesium 2.0 mg/dL (1.8-2.4) 11/14/18 19:55 Total Bilirubin 0.8 mg/dL (0.2-1.0) 11/15/18 09:05 AST 11 U/L (15-37) L 11/15/18 09:05 ALT 14 U/L (12-78) 11/15/18 09:05 Alkaline Phosphatase 79 U/L (46-116) 11/15/18 09:05 Total Protein 6.0 g/dL (6.4-8.2) L 11/15/18 09:05 Albumin 1.8 g/dL (3.4-5.0) L 11/15/18 09:05
[2018-11-15] MEDS: HYDROmorphone 2 MG TAB PO ×2 (11:32→15:13)
[2018-11-15 13:02] LABS: Bilirubin Negative (Negative); Blood Small (Negative); Clarity Clear; Glucose >=1000 mg/dL (Negative); Ketones Negative (Negative); Leukocyte Esterase Negative (Negative); Nitrite Negative (Negative); Specific Gravity 1.015 (1.005-1.025); Urobilinogen 0.2 EU/dL (Up TO 0.2); pH 6.5 (5-8)
[2018-11-15 13:14] LABS: Epithelial Cells Many HPF (Negative); Other Cells Moderate Renal (Negative); RBC 0-2 (0-2)
[2018-11-15 13:15] LABS: Bacteria Moderate HPF (Negative); C & S Indicated? No/Sq. Contamination; Casts Negative LPF (Negative); Crystals Negative HPF (Negative); Mucus Negative (Negative)
--- NOTE | 2018-11-15 14:53 | PDOC.CMIN ---
Care Management Initial Assess REASON FOR HOSPITALIZATION:: Post op abdominal pain. PAST MEDICAL HISTORY/PAST SURGICAL HISTORY:: History of female sterilization (Acute). Adjustment disorder with anxiety (Acute 12/26/16). Allergic rhinitis (Acute 10/11/14). Asthma (Acute 10/11/14). 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 Personal history of cervical dysplasia (Acute 07/13/16). Request for sterilization (Resolved). Contraceptive management (Resolved). IUD contraception (Resolved 03/06/16). Iron deficiency anemia (Resolved). Left shoulder pain. Rhinitis. Status post bilateral salpingectomy (Acute). Cervical Conization/LEEP PREVIOUS FUNCTIONAL STATUS/SOCIAL/FAMILY SUPPORTS:: Angeline resides with her five children in [place] whom range from 13 y/o to 20 months. She reports that she has family whom reside locally and are supportive. 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 She is independent at baseline, drives, and manages ADL's CURRENT FUNCTIONAL STATUS:: Angeline is sitting up in bed and stated she is bringing up thick green mucous but it is difficult and each time she coughs her abdomen hurts more. Shared that she had experienced episodes of asthmatic bronchitis in the past and would like to have some RT updraft treatments to help if the doctor would order it. States she has been using the incentive spirometer as directed. Tolerating her IV antibiotics and has ambulated in the [place] today. Repports that her pain has only responded to fentanyl today. She is SOB during our discussion. She did say that the 12 and 13 yo. children have been very helpful with the younger siblings. ADVANCE DIRECTIVES:: None on file Has patient been provided with information about the portal?: Yes Did the patient sign up for the portal?: No CODE STATUS:: Full Code INSURANCE COVERAGE / FINANCIAL ISSUES:: [place] Medicaid CURRENT HOME/COMMUNITY SERVICES/EQUIPMENT:: None at this time PRIMARY CARE PHYSICIAN:: Dick Estevez POTENTIAL DISCHARGE NEEDS:: F/U appointment with Dr. Dumont PATIENT/FAMILY EDUCATION NEEDS:: Review DC instructions, any limitations, and ongoing DC planning discussion. Discuss 'Ask Me Three' ANTICIPATED BARRIERS TO DISCHARGE:: None identified TRANSPORTATION:: Family will transport by car PLAN:: Angeline will return home with no services needed. She will F/U with and plan of care as prescribed. Angeline's mom will transport her home.
[2018-11-15 15:03] LABS: Bilirubin Negative (Negative); Blood Small (Negative); Clarity Clear; Glucose Negative (Negative); Ketones Negative (Negative); Leukocyte Esterase Negative (Negative); Nitrite Negative (Negative); Urobilinogen 0.2 EU/dL (Up TO 0.2); pH 6.5 (5-8)
[2018-11-15 15:04] LABS: Bacteria Rare HPF (Negative); Crystals Few Amorphous HPF (Negative); Epithelial Cells Negative HPF (Negative); Mucus Negative (Negative); WBC 0-2 HPF (0-5)
[2018-11-15 15:05] LABS: C & S Indicated? Yes
[2018-11-15 16:21] LABS: Abs Immature Grans 0.27 k/cumm (0.0-0.09); Absolute Basophil Count 0.06 k/cumm (0.0-0.2); Absolute Lymphocyte Count 0.89 k/cumm (1.2-3.4); Absolute Monocyte Count 1.13 k/cumm (0.11-0.7); Basophils % 0.2; Eosinophils % 0.3; HGB 11.9 g/dL (12.0-15.5); Immature Grans % 0.9; Mean Corp. HGB Concentration 32.2 g/dL (32.0-36.0); Mean Corpuscular Hemoglobin 28.1 pg (27.0-33.0); Mean Corpuscular Volume 87.3 fL (80-95); Mean Platelet Volume 11.7 fL (8.0-11.0); Monocytes % 3.8; Neutrophils % 91.8; Platelet Count 209 x1000/uL (130-400); RBC 4.24 m/cumm (4.00-5.20); RBC Distribution Width 13.4 % (11.7-14.6)
[2018-11-15 16:26] LABS: Absolute Eosinophil Count 0.09 k/cumm (0.0-0.7); Absolute Neutrophil Count 27.36 k/cumm (1.2-6.7)
[2018-11-15 16:48] LABS: Diff Comment Diff Reviewed
--- NOTE | 2018-11-15 17:48 | NUR.NOTE ---
pt has temp of 38.6 doctor is being called. Pt complains of 9/10 abd pain, pain meds given.Nursing Note:
--- NOTE | 2018-11-15 18:28 | W.PM.PROGNOT ---
Date of Service Date of service: 11/15/18 Time of Service: 18:28 Assessment and Plan (1) Leukocytosis: Current visit: No Status: Acute (2) Upper respiratory infection: Current visit: No Status: Acute (3) Post-op pain: Current visit: No Status: Acute Continued pain and leukocytosis unresponsive to antibiotics. While I do not feel that she has a bowel perforation there was a moderate amount of fluid in the abdomen on CT and bilateral pleural effusions suggest an inflammatory souce that could be abdominal. My recommendation at this point is to proceed with diagnostic laparoscopy and possible placement of drain. Risks of surgery were reviewed. All questions were answered and consent was obtained. Subjective Interval history since last seen: The patient complains of increasing abdominal pain and she did develop a fever this afternoon as well. Repeat CBC shows a WBC count of 30,000. She reports no flatus whatsoever today and no bowel movement. She has mild nausea but is somewhat hungry. No vomiting. Exam Resp Other: Decreased breath sounds in bases. Cardio Rate: regular rate Rhythm: regular rhythm GI Other: Abdomen is mildly distended. Hypoactive bowel sounds. Objective Objective Clinical Data: Abnormal lab results 11/14/18 11/14/18 11/15/18 Range/Units 19:55 19:55 07:00 WBC 28.41 H* 26.98 H* (4.4-10.8) k/cumm Hgb (12.0-15.5) g/dL MPV 12.3 H 11.9 H (8.0-11.0) fL Absolute Neutrophils 26.42 H (1.2-6.7) k/cumm Absolute Lymphocytes 0.85 L (1.2-3.4) k/cumm Absolute Monocytes 1.14 H (0.11-0.7) k/cumm Sodium 131 L (136-145) mmol/L Chloride 96 L (98-107) mmol/L Anion Gap 11.1 H (3-11) mmol/L Glucose 208 H (70-100) mg/dL Calcium (8.5-10.1) mg/dL AST 12 L (15-37) U/L Total Protein (6.4-8.2) g/dL Albumin 2.5 L (3.4-5.0) g/dL Urine Protein (Negative) mg/dL Urine Blood (Negative) Urine RBC (0-2) Urine Glucose (Negative) mg/dL 11/15/18 11/15/18 11/15/18 Range/Units 09:05 11:45 14:09 WBC (4.4-10.8) k/cumm Hgb (12.0-15.5) g/dL MPV (8.0-11.0) fL Absolute Neutrophils (1.2-6.7) k/cumm Absolute Lymphocytes (1.2-3.4) k/cumm Absolute Monocytes (0.11-0.7) k/cumm Sodium 131 L (136-145) mmol/L Chloride (98-107) mmol/L Anion Gap (3-11) mmol/L Glucose 284 H (70-100) mg/dL Calcium 8.0 L (8.5-10.1) mg/dL AST 11 L (15-37) U/L Total Protein 6.0 L (6.4-8.2) g/dL Albumin 1.8 L (3.4-5.0) g/dL Urine Protein 100 H 100 H (Negative) mg/dL Urine Blood Small H Small H (Negative) Urine RBC 10-20 H (0-2) Urine Glucose >=1000 H (Negative) mg/dL 11/15/18 Range/Units 16:10 WBC 29.80 H* (4.4-10.8) k/cumm Hgb 11.9 L (12.0-15.5) g/dL MPV 11.7 H (8.0-11.0) fL Absolute Neutrophils 27.36 H (1.2-6.7) k/cumm Absolute Lymphocytes 0.89 L (1.2-3.4) k/cumm Absolute Monocytes 1.13 H (0.11-0.7) k/cumm Sodium (136-145) mmol/L Chloride (98-107) mmol/L Anion Gap (3-11) mmol/L Glucose (70-100) mg/dL Calcium (8.5-10.1) mg/dL AST (15-37) U/L Total Protein (6.4-8.2) g/dL Albumin (3.4-5.0) g/dL Urine Protein (Negative) mg/dL Urine Blood (Negative) Urine RBC (0-2) Urine Glucose (Negative) mg/dL Vital Signs Temperature 101.5 F H 11/15/18 17:40 Temperature Source Tympanic 11/15/18 17:40 Pulse 109 H 11/15/18 15:29 Pulse Rhythm Regular 11/15/18 15:21 Respiratory Rate 20 11/15/18 15:29 Respiratory Effort 11/15/18 15:21 Respiratory Depth Shallow 11/15/18 15:21 Respiratory Pattern Tachypnea 11/15/18 15:21 Blood Pressure 111/71 11/15/18 15:29 Pulse Oximetry 92 L 11/15/18 15:29 Oxygen Delivery Method Room Air 11/15/18 15:29 Oxygen Flow Rate 0 11/15/18 15:29 Pain Level 9 11/15/18 17:44 Comment notified Kraig BROWN of temp value and pain level. 11/15/18 17:40 Intake & Output 11/14/18 11/15/18 11/15/18 23:59 11:59 23:59 Intake Total 1200 / 1200 1670.000 / 2782.500 1112.5 / 2782.500 Output Total 200 / 1025 825 / 1025 Balance 1200 / 1200 1470.000 / 1757.500 287.5 / 1757.500 Weight 233 lb 0.458 oz 233 lb 0.458 oz Intake: IV 1200 / 1200 1180.000 / 2292.500 1112.5 / 2292.500 Oral 490 / 490 Output: Urine 200 / 1025 825 / 1025 Other: Urine Color Light Leah Yellow Urine Appearance Clear Clear Urine Odor Strong Voiding Methods Bedside Commode Laboratory Results WBC 29.80 k/cumm (4.4-10.8) H* 11/15/18 16:10 RBC 4.24 m/cumm (4.00-5.20) 11/15/18 16:10 Hgb 11.9 g/dL (12.0-15.5) L 11/15/18 16:10 Hct 37.0 % (36.0-46.0) 11/15/18 16:10 MCV 87.3 fL (80-95) 11/15/18 16:10 MCH 28.1 pg (27.0-33.0) 11/15/18 16:10 MCHC 32.2 g/dL (32.0-36.0) 11/15/18 16:10 RDW 13.4 % (11.7-14.6) 11/15/18 16:10 Plt Count 209 x1000/uL (130-400) 11/15/18 16:10 MPV 11.7 fL (8.0-11.0) H 11/15/18 16:10 Immature Gran % 0.9 11/15/18 16:10 Neutrophils % 91.8 11/15/18 16:10 Band Neutrophils % 5.0 % 11/14/18 19:55 Lymphocytes % 3.0 11/15/18 16:10 Monocytes % 3.8 11/15/18 16:10 Eosinophils % 0.3 11/15/18 16:10 Basophils % 0.2 11/15/18 16:10 Absolute Neutrophils 27.36 k/cumm (1.2-6.7) H 11/15/18 16:10 Absolute Lymphocytes 0.89 k/cumm (1.2-3.4) L 11/15/18 16:10 Absolute Monocytes 1.13 k/cumm (0.11-0.7) H 11/15/18 16:10 Absolute Eosinophils 0.09 k/cumm (0.0-0.7) 11/15/18 16:10 Absolute Basophils 0.06 k/cumm (0.0-0.2) 11/15/18 16:10 Differential Comment Diff reviewed 11/15/18 16:10 RBC Morphology Normal 11/14/18 19:55 PT 10.5 sec (9.3-11.0) 11/14/18 19:55 INR 1.1 (0.9-1.1) 11/14/18 19:55 APTT 25.2 sec (21.0-31.4) 11/14/18 19:55 Sodium 131 mmol/L (136-145) L 11/15/18 09:05 Potassium 3.6 mmol/L (3.5-5.1) 11/15/18 09:05 Chloride 98 mmol/L (98-107) 11/15/18 09:05 Carbon Dioxide 24.4 mmol/L (21.0-32.0) 11/15/18 09:05 Anion Gap 8.6 mmol/L (3-11) 11/15/18 09:05 BUN 15 mg/dL (7-18) 11/15/18 09:05 Creatinine 0.94 mg/dL (0.55-1.02) 11/15/18 09:05 Estimated GFR/1.73 m2 >= 60.00 (mL/min/1.73m2) 11/15/18 09:05 Glucose 284 mg/dL (70-100) H 11/15/18 09:05 Lactate 1.4 mmol/l (0.6-1.4) 11/15/18 09:05 Calcium 8.0 mg/dL (8.5-10.1) L 11/15/18 09:05 Magnesium 2.0 mg/dL (1.8-2.4) 11/14/18 19:55 Total Bilirubin 0.8 mg/dL (0.2-1.0) 11/15/18 09:05 AST 11 U/L (15-37) L 11/15/18 09:05 ALT 14 U/L (12-78) 11/15/18 09:05 Alkaline Phosphatase 79 U/L (46-116) 11/15/18 09:05 Total Protein 6.0 g/dL (6.4-8.2) L 11/15/18 09:05 Albumin 1.8 g/dL (3.4-5.0) L 11/15/18 09:05 Urine Color Yellow (Yellow) 11/15/18 14:09 Urine Clarity Clear 11/15/18 14:09 Urine pH 6.5 (5-8) 11/15/18 14:09 Ur Specific [place] 1.020 (1.005-1.025) 11/15/18 14:09 Urine Protein 100 mg/dL (Negative) H 11/15/18 14:09 Urine Ketones Negative mg/dL (Negative) 11/15/18 14:09 Urine Blood Small (Negative) H 11/15/18 14:09 Urine Nitrite Negative (Negative) 11/15/18 14:09 Urine Bilirubin Negative (Negative) 11/15/18 14:09 Urine Urobilinogen 0.2 EU/dL (Up TO 0.2) 11/15/18 14:09 Ur Leukocyte Esterase Negative (Negative) 11/15/18 14:09 Urine RBC 10-20 (0-2) H 11/15/18 14:09 Urine WBC 0-2 HPF (0-5) 11/15/18 14:09 Ur Epithelial Cells Negative HPF (Negative) 11/15/18 14:09 Urine Crystals Few amorphous HPF (Negative) 11/15/18 14:09 Urine Bacteria Rare HPF (Negative) 11/15/18 14:09 Urine Casts 5-10 wbc LPF (Negative) 11/15/18 14:09 Urine Mucus Negative (Negative) 11/15/18 14:09 Urine Other Moderate renal (Negative) 11/15/18 11:45 Ur Culture Indicated? Yes 11/15/18 14:09 Urine Glucose Negative mg/dL (Negative) 11/15/18 14:09
[2018-11-15 18:37] LABS: Lactate-non-spesis 1.3 mmol/l (0.6-1.4)
[2018-11-15] MEDS: Lactated Ringers 1,000 ML 100 ML IV ×2 (19:48→23:46)
--- NOTE | 2018-11-15 20:19 | PGE_ITS ---
Date of Service Date of service: 11/15/18 Time of Service: 13:10 Assessment and Plan (1) Post-op pain: Current visit: No Status: Acute serial exams pain control IV fluids IV antibiotics (2) Upper respiratory infection: Current visit: No Status: Acute Pt still c/o productive cough of green phlegm chest PT incentive spirometry deep breathing exercises OOB and ambulate continue IV antibiotics (3) Leukocytosis: Current visit: No Status: Acute IV antibiotics IV fluids f/u cultures Subjective Patient reports: feels better, still having pain, tolerating liquids well, voiding w/o difficulty and nausea; denies vomiting Interval history since last seen: breathing is feeling less labored. trying to take some fluids in, but min appetite Exam Const General: cooperative and no acute distress Nutritional Appearance: obese Orientation: alert, awake, oriented x3 and other (appears much more comfortable) HENMT Head: normocephalic and atraumatic Resp Effort & Inspection: able to speak in complete sentences and other (less labored breathing, normal rate) Auscultation: clear to auscultation bilaterally GI Inspection: obesity Palpation: soft, not firm, no guarding, not rigid and tender (still with lower abdominal tenderness, but decreased) Auscultation: hypoactive bowel sounds Other: incsions clean Skin Other: warm and dry throughout, incisions clean; no rashes visible Neuro General: alert, awake and oriented x3 Cognition: normal cognition Speech: speech normal Gait: other (ambulating slowly with IV pole) Psych Affect: normal affect Attitude: cooperative Thought Process: normal Insight: insight good Judgment: judgment good Objective Objective Clinical Data: Abnormal lab results 11/14/18 11/14/18 11/15/18 Range/Units 19:55 19:55 07:00 WBC 28.41 H* 26.98 H* (4.4-10.8) k/cumm Hgb (12.0-15.5) g/dL MPV 12.3 H 11.9 H (8.0-11.0) fL Absolute Neutrophils 26.42 H (1.2-6.7) k/cumm Absolute Lymphocytes 0.85 L (1.2-3.4) k/cumm Absolute Monocytes 1.14 H (0.11-0.7) k/cumm Sodium 131 L (136-145) mmol/L Chloride 96 L (98-107) mmol/L Anion Gap 11.1 H (3-11) mmol/L Glucose 208 H (70-100) mg/dL Calcium (8.5-10.1) mg/dL AST 12 L (15-37) U/L Total Protein (6.4-8.2) g/dL Albumin 2.5 L (3.4-5.0) g/dL Urine Protein (Negative) mg/dL Urine Blood (Negative) Urine RBC (0-2) Urine Glucose (Negative) mg/dL 11/15/18 11/15/18 11/15/18 Range/Units 09:05 11:45 14:09 WBC (4.4-10.8) k/cumm Hgb (12.0-15.5) g/dL MPV (8.0-11.0) fL Absolute Neutrophils (1.2-6.7) k/cumm Absolute Lymphocytes (1.2-3.4) k/cumm Absolute Monocytes (0.11-0.7) k/cumm Sodium 131 L (136-145) mmol/L Chloride (98-107) mmol/L Anion Gap (3-11) mmol/L Glucose 284 H (70-100) mg/dL Calcium 8.0 L (8.5-10.1) mg/dL AST 11 L (15-37) U/L Total Protein 6.0 L (6.4-8.2) g/dL Albumin 1.8 L (3.4-5.0) g/dL Urine Protein 100 H 100 H (Negative) mg/dL Urine Blood Small H Small H (Negative) Urine RBC 10-20 H (0-2) Urine Glucose >=1000 H (Negative) mg/dL 11/15/18 Range/Units 16:10 WBC 29.80 H* (4.4-10.8) k/cumm Hgb 11.9 L (12.0-15.5) g/dL MPV 11.7 H (8.0-11.0) fL Absolute Neutrophils 27.36 H (1.2-6.7) k/cumm Absolute Lymphocytes 0.89 L (1.2-3.4) k/cumm Absolute Monocytes 1.13 H (0.11-0.7) k/cumm Sodium (136-145) mmol/L Chloride (98-107) mmol/L Anion Gap (3-11) mmol/L Glucose (70-100) mg/dL Calcium (8.5-10.1) mg/dL AST (15-37) U/L Total Protein (6.4-8.2) g/dL Albumin (3.4-5.0) g/dL Urine Protein (Negative) mg/dL Urine Blood (Negative) Urine RBC (0-2) Urine Glucose (Negative) mg/dL Vital Signs Temperature 100.0 F H 11/15/18 19:26 Temperature Source Tympanic 11/15/18 19:26 Pulse 108 H 11/15/18 19:26 Pulse Rhythm Regular 11/15/18 15:21 Respiratory Rate 19 11/15/18 19:26 Respiratory Effort 11/15/18 15:21 Respiratory Depth Shallow 11/15/18 15:21 Respiratory Pattern Tachypnea 11/15/18 15:21 Blood Pressure 107/67 11/15/18 19:26 Pulse Oximetry 95 11/15/18 19:26 Oxygen Delivery Method Nasal Cannula 11/15/18 19:26 Oxygen Flow Rate 3 11/15/18 19:26 Pain Level 6 11/15/18 18:50 Comment notified Kraig BROWN of temp value and pain level. 11/15/18 17:40 Intake & Output 11/14/18 11/15/18 11/15/18 23:59 11:59 23:59 Intake Total 1200 / 1200 1670.000 / 2782.500 1112.5 / 2782.500 Output Total 200 / 1225 1025 / 1225 Balance 1200 / 1200 1470.000 / 1557.500 87.5 / 1557.500 Weight 233 lb 0.458 oz 233 lb 0.458 oz Intake: IV 1200 / 1200 1180.000 / 2292.500 1112.5 / 2292.500 Oral 490 / 490 Output: Urine 200 / 1225 1025 / 1225 Other: Urine Color Light Leah Yellow Urine Appearance Clear Clear Urine Odor Strong Voiding Methods Bedside Commode Toilet Laboratory Results WBC 29.80 k/cumm (4.4-10.8) H* 11/15/18 16:10 RBC 4.24 m/cumm (4.00-5.20) 11/15/18 16:10 Hgb 11.9 g/dL (12.0-15.5) L 11/15/18 16:10 Hct 37.0 % (36.0-46.0) 11/15/18 16:10 MCV 87.3 fL (80-95) 11/15/18 16:10 MCH 28.1 pg (27.0-33.0) 11/15/18 16:10 MCHC 32.2 g/dL (32.0-36.0) 11/15/18 16:10 RDW 13.4 % (11.7-14.6) 11/15/18 16:10 Plt Count 209 x1000/uL (130-400) 11/15/18 16:10 MPV 11.7 fL (8.0-11.0) H 11/15/18 16:10 Immature Gran % 0.9 11/15/18 16:10 Neutrophils % 91.8 11/15/18 16:10 Band Neutrophils % 5.0 % 11/14/18 19:55 Lymphocytes % 3.0 11/15/18 16:10 Monocytes % 3.8 11/15/18 16:10 Eosinophils % 0.3 11/15/18 16:10 Basophils % 0.2 11/15/18 16:10 Absolute Neutrophils 27.36 k/cumm (1.2-6.7) H 11/15/18 16:10 Absolute Lymphocytes 0.89 k/cumm (1.2-3.4) L 11/15/18 16:10 Absolute Monocytes 1.13 k/cumm (0.11-0.7) H 11/15/18 16:10 Absolute Eosinophils 0.09 k/cumm (0.0-0.7) 11/15/18 16:10 Absolute Basophils 0.06 k/cumm (0.0-0.2) 11/15/18 16:10 Differential Comment Diff reviewed 11/15/18 16:10 RBC Morphology Normal 11/14/18 19:55 PT 10.5 sec (9.3-11.0) 11/14/18 19:55 INR 1.1 (0.9-1.1) 11/14/18 19:55 APTT 25.2 sec (21.0-31.4) 11/14/18 19:55 Sodium 131 mmol/L (136-145) L 11/15/18 09:05 Potassium 3.6 mmol/L (3.5-5.1) 11/15/18 09:05 Chloride 98 mmol/L (98-107) 11/15/18 09:05 Carbon Dioxide 24.4 mmol/L (21.0-32.0) 11/15/18 09:05 Anion Gap 8.6 mmol/L (3-11) 11/15/18 09:05 BUN 15 mg/dL (7-18) 11/15/18 09:05 Creatinine 0.94 mg/dL (0.55-1.02) 11/15/18 09:05 Estimated GFR/1.73 m2 >= 60.00 (mL/min/1.73m2) 11/15/18 09:05 Glucose 284 mg/dL (70-100) H 11/15/18 09:05 Lactate 1.3 mmol/l (0.6-1.4) 11/15/18 18:27 Calcium 8.0 mg/dL (8.5-10.1) L 11/15/18 09:05 Magnesium 2.0 mg/dL (1.8-2.4) 11/14/18 19:55 Total Bilirubin 0.8 mg/dL (0.2-1.0) 11/15/18 09:05 AST 11 U/L (15-37) L 11/15/18 09:05 ALT 14 U/L (12-78) 11/15/18 09:05 Alkaline Phosphatase 79 U/L (46-116) 11/15/18 09:05 Total Protein 6.0 g/dL (6.4-8.2) L 11/15/18 09:05 Albumin 1.8 g/dL (3.4-5.0) L 11/15/18 09:05 Urine Color Yellow (Yellow) 11/15/18 14:09 Urine Clarity Clear 11/15/18 14:09 Urine pH 6.5 (5-8) 11/15/18 14:09 Ur Specific [place] 1.020 (1.005-1.025) 11/15/18 14:09 Urine Protein 100 mg/dL (Negative) H 11/15/18 14:09 Urine Ketones Negative mg/dL (Negative) 11/15/18 14:09 Urine Blood Small (Negative) H 11/15/18 14:09 Urine Nitrite Negative (Negative) 11/15/18 14:09 Urine Bilirubin Negative (Negative) 11/15/18 14:09 Urine Urobilinogen 0.2 EU/dL (Up TO 0.2) 11/15/18 14:09 Ur Leukocyte Esterase Negative (Negative) 11/15/18 14:09 Urine RBC 10-20 (0-2) H 11/15/18 14:09 Urine WBC 0-2 HPF (0-5) 11/15/18 14:09 Ur Epithelial Cells Negative HPF (Negative) 11/15/18 14:09 Urine Crystals Few amorphous HPF (Negative) 11/15/18 14:09 Urine Bacteria Rare HPF (Negative) 11/15/18 14:09 Urine Casts 5-10 wbc LPF (Negative) 11/15/18 14:09 Urine Mucus Negative (Negative) 11/15/18 14:09 Urine Other Moderate renal (Negative) 11/15/18 11:45 Ur Culture Indicated? Yes 11/15/18 14:09 Urine Glucose Negative mg/dL (Negative) 11/15/18 14:09
[2018-11-15] MEDS: Lactated Ringers 1,000 ML 200 ML IV ×2 (21:00→23:50)
[2018-11-16] VITALS (136 sets, daily range): BP systolic 80–137; BP diastolic 21–114; PULSE 76–161; RESP 15–36; TEMP 35.6–38.6; O2SAT 91–98
[2018-11-16] MEDS: Lactated Ringers 1,000 ML 200 ML IV (01:25)
[2018-11-16] MEDS: Bupivacaine 0.25% Pres-Free 30 ML VIAL (01:33)
[2018-11-16] MEDS: Lactated Ringers 1,000 ML 100 ML IV (01:55)
--- NOTE | 2018-11-16 02:44 | DI.RAD_ITS ---
SYMPTOMS/DIAGNOSIS: EVALUATE CENTRAL LINE POSITION PORTABLE CHEST: Comparison is made with November,. An endotracheal tube has been inserted. The tip lies in the upper right main bronchus and should be pulled back. A nasogastric tube is also in place, which projects below the diaphragm. Multiple cardiac leads as well as oxygen tubing are seen overlying the chest, limiting evaluation of the lungs. A central venous catheter has been inserted via the left subclavian approach, which traverses across the midline into the right subclavian vein. The lungs are expiratory but grossly clear.
--- NOTE | 2018-11-16 03:47 | W.PM.PROGNOT ---
Date of Service Date of service: 11/16/18 Time of Service: 03:47 Subjective Interval history since last seen: Asked to assist in management. Briefly, patient is s/p tubal ligation complicated by bowel perforation. Comes to ICU on ventilator, plan by surgery is to maintain on vent through the night. No h/o cardiopuilmonary disease. On exam BP97/57, pulse 109, RR onvent 18, O2 sat 97%. Initial exam shows diminished breath sounds on left, since equalized after ETT pulled back. Heart tachy/regular. ABG 7.37/43/98 on 50%/ PEEP 5 Patient currently getting LR wide open, has received Versed 2 mg x 2, fentanyl 100, appears comfortable. Is on Zosyn empiric coverage. A/P: Recommend aggressive fluids and Levophed pressure support, sedation with Versed drip and prn Fentanyl; continue antibiotics as is along with current ventilator settings. Objective Objective Clinical Data: Abnormal lab results 11/15/18 11/15/18 11/15/18 Range/Units 07:00 09:05 11:45 WBC 26.98 H* (4.4-10.8) k/cumm Hgb (12.0-15.5) g/dL MPV 11.9 H (8.0-11.0) fL Absolute Neutrophils (1.2-6.7) k/cumm Absolute Lymphocytes (1.2-3.4) k/cumm Absolute Monocytes (0.11-0.7) k/cumm Sodium 131 L (136-145) mmol/L Glucose 284 H (70-100) mg/dL Calcium 8.0 L (8.5-10.1) mg/dL AST 11 L (15-37) U/L Total Protein 6.0 L (6.4-8.2) g/dL Albumin 1.8 L (3.4-5.0) g/dL Urine Protein 100 H (Negative) mg/dL Urine Blood Small H (Negative) Urine RBC (0-2) Urine Glucose >=1000 H (Negative) mg/dL 11/15/18 11/15/18 Range/Units 14:09 16:10 WBC 29.80 H* (4.4-10.8) k/cumm Hgb 11.9 L (12.0-15.5) g/dL MPV 11.7 H (8.0-11.0) fL Absolute Neutrophils 27.36 H (1.2-6.7) k/cumm Absolute Lymphocytes 0.89 L (1.2-3.4) k/cumm Absolute Monocytes 1.13 H (0.11-0.7) k/cumm Sodium (136-145) mmol/L Glucose (70-100) mg/dL Calcium (8.5-10.1) mg/dL AST (15-37) U/L Total Protein (6.4-8.2) g/dL Albumin (3.4-5.0) g/dL Urine Protein 100 H (Negative) mg/dL Urine Blood Small H (Negative) Urine RBC 10-20 H (0-2) Urine Glucose (Negative) mg/dL Vital Signs Temperature 37.8 C H 11/15/18 19:26 Temperature Source Tympanic 11/15/18 19:26 Pulse 108 H 11/15/18 19:26 Pulse Rhythm Regular 11/15/18 15:21 Respiratory Rate 19 11/15/18 19:26 Respiratory Effort 11/15/18 15:21 Respiratory Depth Shallow 11/15/18 15:21 Respiratory Pattern Tachypnea 11/15/18 15:21 Blood Pressure 107/67 11/15/18 19:26 Pulse Oximetry 95 11/15/18 19:26 Oxygen Delivery Method Nasal Cannula 11/15/18 19:26 Oxygen Flow Rate 3 11/15/18 19:26 Pain Level 6 11/15/18 18:50 Comment notified Kraig BROWN of temp value and pain level. 11/15/18 17:40 Intake & Output 11/15/18 11/15/18 11/16/18 11:59 23:59 11:59 Intake Total 1670.000 / 4832.500 3162.5 / 4832.500 2700 / 2700 Output Total 200 / 1425 1225 / 1425 400 / 400 Balance 1470.000 / 3407.500 1937.5 / 3407.500 2300 / 2300 Weight 105.7 kg Intake: IV 1180.000 / 4342.500 3162.5 / 4342.500 2700 / 2700 Oral 490 / 490 Output: Urine 200 / 1425 1225 / 1425 200 / 200 Estimated Blood Loss 200 / 200 Other: Urine Color Light Leah Yellow Dark Leah Urine Appearance Clear Clear Clear Urine Odor Strong Voiding Methods Bedside Commode Toilet Laboratory Results WBC 29.80 k/cumm (4.4-10.8) H* 11/15/18 16:10 RBC 4.24 m/cumm (4.00-5.20) 11/15/18 16:10 Hgb 11.9 g/dL (12.0-15.5) L 11/15/18 16:10 Hct 37.0 % (36.0-46.0) 11/15/18 16:10 MCV 87.3 fL (80-95) 11/15/18 16:10 MCH 28.1 pg (27.0-33.0) 11/15/18 16:10 MCHC 32.2 g/dL (32.0-36.0) 11/15/18 16:10 RDW 13.4 % (11.7-14.6) 11/15/18 16:10 Plt Count 209 x1000/uL (130-400) 11/15/18 16:10 MPV 11.7 fL (8.0-11.0) H 11/15/18 16:10 Immature Gran % 0.9 11/15/18 16:10 Neutrophils % 91.8 11/15/18 16:10 Band Neutrophils % 5.0 % 11/14/18 19:55 Lymphocytes % 3.0 11/15/18 16:10 Monocytes % 3.8 11/15/18 16:10 Eosinophils % 0.3 11/15/18 16:10 Basophils % 0.2 11/15/18 16:10 Absolute Neutrophils 27.36 k/cumm (1.2-6.7) H 11/15/18 16:10 Absolute Lymphocytes 0.89 k/cumm (1.2-3.4) L 11/15/18 16:10 Absolute Monocytes 1.13 k/cumm (0.11-0.7) H 11/15/18 16:10 Absolute Eosinophils 0.09 k/cumm (0.0-0.7) 11/15/18 16:10 Absolute Basophils 0.06 k/cumm (0.0-0.2) 11/15/18 16:10 Differential Comment Diff reviewed 11/15/18 16:10 RBC Morphology Normal 11/14/18 19:55 PT 10.5 sec (9.3-11.0) 11/14/18 19:55 INR 1.1 (0.9-1.1) 11/14/18 19:55 APTT 25.2 sec (21.0-31.4) 11/14/18 19:55 Sodium 131 mmol/L (136-145) L 11/15/18 09:05 Potassium 3.6 mmol/L (3.5-5.1) 11/15/18 09:05 Chloride 98 mmol/L (98-107) 11/15/18 09:05 Carbon Dioxide 24.4 mmol/L (21.0-32.0) 11/15/18 09:05 Anion Gap 8.6 mmol/L (3-11) 11/15/18 09:05 BUN 15 mg/dL (7-18) 11/15/18 09:05 Creatinine 0.94 mg/dL (0.55-1.02) 11/15/18 09:05 Estimated GFR/1.73 m2 >= 60.00 (mL/min/1.73m2) 11/15/18 09:05 Glucose 284 mg/dL (70-100) H 11/15/18 09:05 Lactate 1.3 mmol/l (0.6-1.4) 11/15/18 18:27 Calcium 8.0 mg/dL (8.5-10.1) L 11/15/18 09:05 Magnesium 2.0 mg/dL (1.8-2.4) 11/14/18 19:55 Total Bilirubin 0.8 mg/dL (0.2-1.0) 11/15/18 09:05 AST 11 U/L (15-37) L 11/15/18 09:05 ALT 14 U/L (12-78) 11/15/18 09:05 Alkaline Phosphatase 79 U/L (46-116) 11/15/18 09:05 Total Protein 6.0 g/dL (6.4-8.2) L 11/15/18 09:05 Albumin 1.8 g/dL (3.4-5.0) L 11/15/18 09:05 Urine Color Yellow (Yellow) 11/15/18 14:09 Urine Clarity Clear 11/15/18 14:09 Urine pH 6.5 (5-8) 11/15/18 14:09 Ur Specific [place] 1.020 (1.005-1.025) 11/15/18 14:09 Urine Protein 100 mg/dL (Negative) H 11/15/18 14:09 Urine Ketones Negative mg/dL (Negative) 11/15/18 14:09 Urine Blood Small (Negative) H 11/15/18 14:09 Urine Nitrite Negative (Negative) 11/15/18 14:09 Urine Bilirubin Negative (Negative) 11/15/18 14:09 Urine Urobilinogen 0.2 EU/dL (Up TO 0.2) 11/15/18 14:09 Ur Leukocyte Esterase Negative (Negative) 11/15/18 14:09 Urine RBC 10-20 (0-2) H 11/15/18 14:09 Urine WBC 0-2 HPF (0-5) 11/15/18 14:09 Ur Epithelial Cells Negative HPF (Negative) 11/15/18 14:09 Urine Crystals Few amorphous HPF (Negative) 11/15/18 14:09 Urine Bacteria Rare HPF (Negative) 11/15/18 14:09 Urine Casts 5-10 wbc LPF (Negative) 11/15/18 14:09 Urine Mucus Negative (Negative) 11/15/18 14:09 Urine Other Moderate renal (Negative) 11/15/18 11:45 Ur Culture Indicated? Yes 11/15/18 14:09 Urine Glucose Negative mg/dL (Negative) 11/15/18 14:09
[2018-11-16 03:50] LABS: BE -0.6 mmol/L (-3-3); HCO3 25 mmol/L (22-28); pCO2 43 mmHg (34-47); pH 7.37 (7.35-7.45); pO2 98 mmHg (83-108); sO2 97 % (94-98); tCO2 23 mmol/L (22-29)
[2018-11-16 03:51] LABS: Site Right Radial
[2018-11-16] MEDS: Midazolam 2 MG/2 ML VIAL IVP (04:00)
[2018-11-16] MEDS: Lactated Ringers 1,000 ML 1000 ML IV ×2 (04:00→04:46)
--- NOTE | 2018-11-16 04:02 | DI.VRAD_ITS ---
EXAM: XR Chest, 1 View EXAM DATE/TIME: 11/16/2018 2:44 AM CLINICAL HISTORY: 38 years old, female; Device placement; Patient HX: Eval central line placement TECHNIQUE: Imaging protocol: XR of the chest, 1 view. COMPARISON: CR XR CHEST 2V PA LATERAL 11/15/2018 9:15 AM FINDINGS: Tubes, catheters and devices: Final image demonstrates the endotracheal tube 2.5 cm above the level of the regino. Nasogastric tube tip in the stomach. Left subclavian central venous catheter tip is in the right subclavian vein. Lungs: Lung volumes are low with some atelectasis. Pleural space: Unremarkable. No evidence of pneumothorax. Heart/Mediastinum: Unremarkable. Heart size within normal limits for technique. Bones/joints: Unremarkable. IMPRESSION: Left subclavian central venous catheter tip is in the right subclavian vein. Low lung volumes with some atelectasis. Dictated and Authenticated by: Juan Carlos Cee MD. Ordering:INOCENCIO Gonzalez MD
[2018-11-16] MEDS: MIDAZOLAM 50 MG in Normal Saline 90 ML IV (04:05)
[2018-11-16] MEDS: Pantoprazole 40 MG VIAL IVP (04:08)
[2018-11-16 04:17] LABS: Abs Immature Grans 0.44 k/cumm (0.0-0.09); HCT 37.1 % (36.0-46.0); HGB 12.2 g/dL (12.0-15.5); Mean Corp. HGB Concentration 32.9 g/dL (32.0-36.0); Mean Corpuscular Hemoglobin 28.8 pg (27.0-33.0); Mean Corpuscular Volume 87.7 fL (80-95); Mean Platelet Volume 11.5 fL (8.0-11.0); Platelet Count 263 x1000/uL (130-400); RBC 4.23 m/cumm (4.00-5.20); RBC Distribution Width 13.4 % (11.7-14.6); White Blood Cell Count 24.94 k/cumm (4.4-10.8)
[2018-11-16] MEDS: PIPERACILLIN/TAZO 3.375 GM in Normal Saline 50 ML IVPB ×2 (04:31→12:25)
[2018-11-16 04:33] LABS: ALT 16 U/L (12-78); AST 21 U/L (15-37); Albumin 1.1 g/dL (3.4-5.0); Alkaline Phosphatase 61 U/L (46-116); Anion Gap 9.2 mmol/L (3-11); BUN 12 mg/dL (7-18); Bilirubin, Total 0.9 mg/dL (0.2-1.0); CO2 24.8 mmol/L (21.0-32.0); CREATININE 0.89 mg/dL (0.55-1.02); Calcium 7.1 mg/dL (8.5-10.1); Chloride 102 mmol/L (98-107); Glucose 179 mg/dL (70-100); Potassium 3.6 mmol/L (3.5-5.1); Sodium 136 mmol/L (136-145); Total Protein 4.2 g/dL (6.4-8.2)
[2018-11-16 04:37] LABS: Absolute Monocyte Count 0.75 k/cumm (0.11-0.7); Absolute Neutrophil Count 23.19 k/cumm (1.2-6.7); RBC Morphology Normal
[2018-11-16] MEDS: Normal Saline 1,000 ML 1000 ML IV (05:15)
[2018-11-16] MEDS: Enoxaparin 40 MG/0.4 ML SYR SC (05:41)
[2018-11-16] MEDS: Normal Saline Flush 10 ML SYR IVP ×4 (06:01→17:35)
[2018-11-16 06:18] LABS: Abs Immature Grans 0.52 k/cumm (0.0-0.09); HCT 38.9 % (36.0-46.0); HGB 12.5 g/dL (12.0-15.5); Mean Corp. HGB Concentration 32.1 g/dL (32.0-36.0); Mean Corpuscular Hemoglobin 28.2 pg (27.0-33.0); Mean Corpuscular Volume 87.6 fL (80-95); Mean Platelet Volume 11.8 fL (8.0-11.0); Platelet Count 298 x1000/uL (130-400); RBC 4.44 m/cumm (4.00-5.20); RBC Distribution Width 13.6 % (11.7-14.6)
[2018-11-16 06:29] LABS: INR 1.1 (0.9-1.1); Prothrombin Time 11.2 sec (9.3-11.0)
[2018-11-16 06:30] LABS: ALT 18 U/L (12-78); AST 28 U/L (15-37); Albumin 1.1 g/dL (3.4-5.0); Alkaline Phosphatase 70 U/L (46-116); Anion Gap 10.1 mmol/L (3-11); BUN 11 mg/dL (7-18); Bilirubin, Total 1.4 mg/dL (0.2-1.0); CO2 23.9 mmol/L (21.0-32.0); CREATININE 0.87 mg/dL (0.55-1.02); Calcium 7.2 mg/dL (8.5-10.1); Chloride 102 mmol/L (98-107); Glucose 191 mg/dL (70-100); Potassium 3.8 mmol/L (3.5-5.1); Sodium 136 mmol/L (136-145); Total Protein 4.3 g/dL (6.4-8.2)
[2018-11-16] MEDS: fentaNYL 100 MCG/2 ML VIAL IVP ×9 (06:40→23:05)
[2018-11-16 06:50] LABS: White Blood Cell Count 30.07 k/cumm (4.4-10.8)
[2018-11-16 06:51] LABS: Absolute Neutrophil Count 27.97 k/cumm (1.2-6.7); Diff Comment Manual Differential; RBC Morphology Normal
[2018-11-16] MEDS: Normal Saline 1,000 ML 250 ML IV ×3 (07:19→20:54)
[2018-11-16] MEDS: PROPOFOL 1,000 MG/100 ML BTL 3.36 MG IVPB (10:01)
--- NOTE | 2018-11-16 10:22 | W.PM.OP ---
Date of service: 11/16/18 Time of Service: : Operative Note DATE OF PROCEDURE: 11/15/18 PRE-OP DIAGNOSIS: Abdominal pain, rule out bowel injury POST-OP DIAGNOSIS: other (Small bowel perforation ) PROCEDURE: 1. Diagnostic laparoscopy 2. Exploratory laparotomy with segmental resection of the small intestine x 2 SURGEON: Carlos Dumont ASSISTING SURGEON: Marcial Andino ANESTHESIA: GETA ESTIMATED BLOOD LOSS: 200 PATHOLOGY: other (Small bowel segments ) COMPLICATIONS: None Patient was transported to: ICU Patient's condition: critical Implants: BYRON drains x 2 Subclavian central line 6 sections of Telfa along inserted along the abdominal incision interspaced between adi. Findings: 1. Two small bowel perforations with spillage of contents. Procedure Description: The patient was taken to the operating room and after an adequate level of general anesthesia was obtained the patient was placed in supine position the patient was prepped and draped in usual sterile manner. The patient had 3 previous incisions with the first at the umbilicus midline and 2 other small 5 mm incisions in the right and left lower quadrants. A small stab incision was made after infiltration with 0.25% Marcaine solution in the left upper quadrant in the midclavicular line below the costal margin. A Veress needle was passed but hanging drop could not confirm entry into the abdominal cavity. At this point I converted to a 5 mm Visiport trocar with direct entry. The instrument was passed and again entry into the abdominal cavity could not be confirmed. The port was removed. The incision was extended and dissection was carried down to the fascia. The fascia was grasped elevated with 2 Tico clamps and incised with Resendiz scissors. The peritoneum was identified and entered with hemostats. A Bernard trocar was placed and a pneumoperitoneum to approximately 50 mmHg was established. On initial entry there was extensive inflammatory changes throughout the abdomen. Omentum and bowel were adhered to the anterior abdominal wall and particularly at the umbilicus. In the left paracolic gutter bowel contents were visualized and compartmentalized by omentum and bowel adhesions. At this point decision was made to consult general surgery, Dr. Andino. The procedure was converted to an exploratory laparotomy. The umbilical incision was extended superiorly and inferiorly. At the site of the umbilical incision a small knuckle of small bowel displayed leakage of bowel contents and perforation and appeared to be involved in the closure of that incision. On evaluation of the bowel and second perforation was identified proximal to that along the small bowel as well with gross spillage of contents into the abdominal cavity. Please refer to Dr. Andino's dictation for management of bowel injury and segmental resection of the small bowel.
--- NOTE | 2018-11-16 10:41 | PGE_ITS ---
Date of Service Date of service: 11/16/18 Time of Service: 10:35 Assessment and Plan (1) Small bowel perforation: Current visit: Yes Status: Acute (2) Sepsis: Current visit: Yes Status: Acute (3) S/P small bowel resection: Current visit: Yes Status: Acute Discussed with hospitalist. Will reduce maintenance IV fluids. Repeat labs as scheduled. Continue Zosyn. Subjective Interval history since last seen: Patient remains intubated and sedated in ICU. Exam Resp Other: CTA but diminished in bases Cardio Other: Tachycardic with heart rate between 130 and 160 GI Other: Dressing in place. Serosanguinous drainage in both JPs. Dressing in place Extrem Other: 2+ pitting edema Objective Objective Clinical Data: Abnormal lab results 11/15/18 11/15/18 11/15/18 Range/Units 11:45 14:09 16:10 WBC 29.80 H* (4.4-10.8) k/cumm Hgb 11.9 L (12.0-15.5) g/dL MPV 11.7 H (8.0-11.0) fL Absolute Neutrophils 27.36 H (1.2-6.7) k/cumm Absolute Lymphocytes 0.89 L (1.2-3.4) k/cumm Absolute Monocytes 1.13 H (0.11-0.7) k/cumm PT (9.3-11.0) sec Glucose (70-100) mg/dL Lactate (0.6-1.4) mmol/l Calcium (8.5-10.1) mg/dL Total Bilirubin (0.2-1.0) mg/dL Total Protein (6.4-8.2) g/dL Albumin (3.4-5.0) g/dL Urine Protein 100 H 100 H (Negative) mg/dL Urine Blood Small H Small H (Negative) Urine RBC 10-20 H (0-2) Urine Glucose >=1000 H (Negative) mg/dL 11/16/18 11/16/18 11/16/18 Range/Units 04:12 04:12 04:12 WBC 24.94 H (4.4-10.8) k/cumm Hgb (12.0-15.5) g/dL MPV 11.5 H (8.0-11.0) fL Absolute Neutrophils 23.19 H (1.2-6.7) k/cumm Absolute Lymphocytes 1.00 L (1.2-3.4) k/cumm Absolute Monocytes 0.75 H (0.11-0.7) k/cumm PT (9.3-11.0) sec Glucose 179 H D (70-100) mg/dL Lactate 2.0 H (0.6-1.4) mmol/l Calcium 7.1 L (8.5-10.1) mg/dL Total Bilirubin (0.2-1.0) mg/dL Total Protein 4.2 L (6.4-8.2) g/dL Albumin 1.1 L (3.4-5.0) g/dL Urine Protein (Negative) mg/dL Urine Blood (Negative) Urine RBC (0-2) Urine Glucose (Negative) mg/dL 11/16/18 11/16/18 11/16/18 Range/Units 06:04 06:04 06:04 WBC 30.07 H* (4.4-10.8) k/cumm Hgb (12.0-15.5) g/dL MPV 11.8 H (8.0-11.0) fL Absolute Neutrophils 27.97 H (1.2-6.7) k/cumm Absolute Lymphocytes (1.2-3.4) k/cumm Absolute Monocytes 0.90 H (0.11-0.7) k/cumm PT 11.2 H (9.3-11.0) sec Glucose 191 H (70-100) mg/dL Lactate (0.6-1.4) mmol/l Calcium 7.2 L (8.5-10.1) mg/dL Total Bilirubin 1.4 H (0.2-1.0) mg/dL Total Protein 4.3 L (6.4-8.2) g/dL Albumin 1.1 L (3.4-5.0) g/dL Urine Protein (Negative) mg/dL Urine Blood (Negative) Urine RBC (0-2) Urine Glucose (Negative) mg/dL Vital Signs Temperature 98.4 F 11/16/18 07:42 Temperature Source Temporal Artery Scan 11/16/18 07:42 Pulse 158 H 11/16/18 10:00 Pulse Rhythm Regular 11/15/18 15:21 Pulse 161 H 11/16/18 10:00 Respiratory Rate 27 H 11/16/18 10:01 Respiratory Effort 11/16/18 07:42 Respiratory Depth Normal 11/16/18 07:42 Respiratory Pattern Normal 11/16/18 07:42 Blood Pressure 107/80 11/16/18 10:00 Blood Pressure Mean 86 11/16/18 10:00 Blood Pressure Position Supine 11/16/18 02:40 Pulse Oximetry 94 L 11/16/18 10:01 Respiratory End-tidal CO2 32 11/16/18 10:01 Oxygen Delivery Method Mechanical Ventilator 11/16/18 07:42 Oxygen Flow Rate 0 11/16/18 07:42 Fraction of Inspired Oxygen (FIO2) 40 11/16/18 10:01 Pain Level 3 11/16/18 07:42 Comment notified Kraig BROWN of temp value and pain level. 11/15/18 17:40 Intake & Output 11/15/18 11/15/18 11/16/18 11:59 23:59 11:59 Intake Total 1670.000 / 4832.500 3162.5 / 4832.500 7630.781 / 7630.781 Output Total 200 / 1425 1225 / 1425 905 / 905 Balance 1470.000 / 3407.500 1937.5 / 3407.500 6725.781 / 6725.781 Weight 233 lb 0.458 oz 246 lb 14.684 oz Intake: IV 1180.000 / 4342.500 3162.5 / 4342.500 7555.781 / 7555.781 Oral 490 / 490 Injectate 75 / 75 Left Upper Anterior Abdomen 15 / 15 Right Upper Anterior Abdomen 60 / 60 Output: Gastric Drainage 100 / 100 Left Nare 100 / 100 Drainage 215 / 215 Left Upper Anterior Abdomen 140 / 140 Right Upper Anterior Abdomen 75 / 75 Urine 200 / 1425 1225 / 1425 390 / 390 Estimated Blood Loss 200 / 200 Other: Urine Color Light Susy Yellow Light Susy Urine Appearance Clear Clear Sediment Urine Odor Strong None Comment FC/dark susy urnine. Decreased UO. Gastric Occult Blood Left Nare Negative Voiding Methods Bedside Commode Toilet Indwelling Catheter Laboratory Results WBC 30.07 k/cumm (4.4-10.8) H* 11/16/18 06:04 RBC 4.44 m/cumm (4.00-5.20) 11/16/18 06:04 Hgb 12.5 g/dL (12.0-15.5) 11/16/18 06:04 Hct 38.9 % (36.0-46.0) 11/16/18 06:04 MCV 87.6 fL (80-95) 11/16/18 06:04 MCH 28.2 pg (27.0-33.0) 11/16/18 06:04 MCHC 32.1 g/dL (32.0-36.0) 11/16/18 06:04 RDW 13.6 % (11.7-14.6) 11/16/18 06:04 Plt Count 298 x1000/uL (130-400) 11/16/18 06:04 MPV 11.8 fL (8.0-11.0) H 11/16/18 06:04 Immature Gran % See Differential 11/16/18 06:04 Neutrophils % 80.0 11/16/18 06:04 Band Neutrophils % 13.0 % 11/16/18 06:04 Lymphocytes % 4.0 11/16/18 06:04 Monocytes % 3.0 11/16/18 06:04 Eosinophils % 0.0 11/16/18 06:04 Basophils % 0.0 11/16/18 06:04 Absolute Neutrophils 27.97 k/cumm (1.2-6.7) H 11/16/18 06:04 Absolute Lymphocytes 1.20 k/cumm (1.2-3.4) 11/16/18 06:04 Absolute Monocytes 0.90 k/cumm (0.11-0.7) H 11/16/18 06:04 Absolute Eosinophils 0.00 k/cumm (0.0-0.7) 11/16/18 06:04 Absolute Basophils 0.00 k/cumm (0.0-0.2) 11/16/18 06:04 Differential Comment Manual differential 11/16/18 06:04 RBC Morphology Normal 11/16/18 06:04 PT 11.2 sec (9.3-11.0) H 11/16/18 06:04 INR 1.1 (0.9-1.1) 11/16/18 06:04 APTT 25.2 sec (21.0-31.4) 11/14/18 19:55 Sample Site Right radial 11/16/18 03:51 pCO2 43 mmHg (34-47) 11/16/18 03:51 pO2 98 mmHg (83-108) 11/16/18 03:51 O2 Saturation 97 % (94-98) 11/16/18 03:51 ABG pH 7.37 (7.35-7.45) 11/16/18 03:51 ABG HCO3 25 mmol/L (22-28) 11/16/18 03:51 ABG Total CO2 23 mmol/L (22-29) 11/16/18 03:51 ABG Base Excess -0.6 mmol/L (-3-3) 11/16/18 03:51 Oxygen Liter Flow 50% 5 peep L 11/16/18 03:51 FiO2 A/c 18 vt 420 % 11/16/18 03:51 Sodium 136 mmol/L (136-145) 11/16/18 06:04 Potassium 3.8 mmol/L (3.5-5.1) 11/16/18 06:04 Chloride 102 mmol/L (98-107) 11/16/18 06:04 Carbon Dioxide 23.9 mmol/L (21.0-32.0) 11/16/18 06:04 Anion Gap 10.1 mmol/L (3-11) 11/16/18 06:04 BUN 11 mg/dL (7-18) 11/16/18 06:04 Creatinine 0.87 mg/dL (0.55-1.02) 11/16/18 06:04 Estimated GFR/1.73 m2 >= 60.00 (mL/min/1.73m2) 11/16/18 06:04 Glucose 191 mg/dL (70-100) H 11/16/18 06:04 Lactate 2.0 mmol/l (0.6-1.4) H 11/16/18 04:12 Calcium 7.2 mg/dL (8.5-10.1) L 11/16/18 06:04 Magnesium 2.0 mg/dL (1.8-2.4) 11/14/18 19:55 Total Bilirubin 1.4 mg/dL (0.2-1.0) H 11/16/18 06:04 AST 28 U/L (15-37) 11/16/18 06:04 ALT 18 U/L (12-78) 11/16/18 06:04 Alkaline Phosphatase 70 U/L (46-116) 11/16/18 06:04 Total Protein 4.3 g/dL (6.4-8.2) L 11/16/18 06:04 Albumin 1.1 g/dL (3.4-5.0) L 11/16/18 06:04 Urine Color Yellow (Yellow) 11/15/18 14:09 Urine Clarity Clear 11/15/18 14:09 Urine pH 6.5 (5-8) 11/15/18 14:09 Ur Specific [place] 1.020 (1.005-1.025) 11/15/18 14:09 Urine Protein 100 mg/dL (Negative) H 11/15/18 14:09 Urine Ketones Negative mg/dL (Negative) 11/15/18 14:09 Urine Blood Small (Negative) H 11/15/18 14:09 Urine Nitrite Negative (Negative) 11/15/18 14:09 Urine Bilirubin Negative (Negative) 11/15/18 14:09 Urine Urobilinogen 0.2 EU/dL (Up TO 0.2) 11/15/18 14:09 Ur Leukocyte Esterase Negative (Negative) 11/15/18 14:09 Urine RBC 10-20 (0-2) H 11/15/18 14:09 Urine WBC 0-2 HPF (0-5) 11/15/18 14:09 Ur Epithelial Cells Negative HPF (Negative) 11/15/18 14:09 Urine Crystals Few amorphous HPF (Negative) 11/15/18 14:09 Urine Bacteria Rare HPF (Negative) 11/15/18 14:09 Urine Casts 5-10 wbc LPF (Negative) 11/15/18 14:09 Urine Mucus Negative (Negative) 11/15/18 14:09 Urine Other Moderate renal (Negative) 11/15/18 11:45 Ur Culture Indicated? Yes 11/15/18 14:09 Urine Glucose Negative mg/dL (Negative) 11/15/18 14:09
[2018-11-16] MEDS: ACETAMINOPHEN 1,000 MG/100 ML BTL 400 MG IVPB ×2 (11:12→17:34)
[2018-11-16] MEDS: Normal Saline 1,000 ML 200 ML IV ×2 (12:14→15:02)
--- NOTE | 2018-11-16 12:39 | PDOC.CMPRO ---
Care Management Progress Note S/O: Angeline has been transferred into ICU overnight and is sedated as well as on the ventilator. Mother and grandmother have called to see how she is doing and expect to come in later this afternoon. A: 38yo female readmitted following a laparoscopic bilateral salpingectomy 11/12/18. P: Medical Consult was requested and pending response to current treatment further discussion will need to take place regarding the need for transfer to tertiary care center-[facility] [place]. CM will continue to follow and facilitate discharge planning.
--- NOTE | 2018-11-16 12:47 | CMPROGNOTE_ITS ---
Care Management Progress Note S/O: Angeline has been transferred into ICU overnight and is sedated as well as on the ventilator. Mother and grandmother have called to see how she is doing and expect to come in later this afternoon. A: 38yo female readmitted following a laparoscopic bilateral salpingectomy 11/12/18. P: Medical Consult was requested and pending response to current treatment further discussion will need to take place regarding the need for [place] [place] CM will continue to follow and facilitate discharge planning.
--- NOTE | 2018-11-16 13:39 | DI.RAD_ITS ---
SYMPTOMS/DIAGNOSIS: CENTRAL LINE PLACEMENT CONFIRMATION PORTABLE CHEST: Comparison is made with November, at 1:52 p.m. There has been no change in the endotracheal tube and nasogastric tube. The left subclavian central venous catheter has been slightly pulled back and now appears to lie at the expected location of the SVC. Increased densities again seen at the left lung base, unchanged. IMPRESSION: Central line is now seen in the SVC. There is stable increased density at the left lower lobe. No pneumothorax is seen. No change from the previous exam.
[2018-11-16] MEDS: PROPOFOL 1,000 MG/100 ML BTL 26.9 MG IVPB (13:42)
--- NOTE | 2018-11-16 14:01 | DI.RAD_ITS ---
SYMPTOMS/DIAGNOSIS: EVALUATE LUNG BURNS PORTABLE SUPINE CHEST: Comparison is made with 1:52 p.m. November,. Comparison is made with previous exam at 3:24 a.m. The central venous catheter has been pulled back, but still curves toward the right subclavian vein. The endotracheal tube has been pulled back to the level of the upper clavicles. The lungs are expiratory. There is increased density seen at the left lung base, likely representing a combination of left pleural effusion plus infiltrate. This appears increased when compared with the previous exam.
--- NOTE | 2018-11-16 15:06 | W.PM.PROGNOT ---
Date of Service Date of service: 11/16/18 Time of Service: 15:06 Assessment and Plan (1) Sepsis: Current visit: Yes Status: Acute Sepsis with intra-abdominal source from Small Bowel Perforations - Initial Blood Cultures with No Growth X24 hours, with repeat Blood Cultures pending. Continue Zosyn, currently day #1. Continue supportive care with IVFs and Pressor support. Monitor blood pressure and Urine Output carefully. Would continue with Mechanical Ventilation at current settings. CXR with findings of bibasilar disease on the basis of atelectasis or pneumonia, with a small left pleural effusion noted as well. The patient continues to be febrile - low threshold for expanding coverage to include Vancomycin as well. (2) Small bowel perforation: Current visit: Yes Status: Acute S/p 2 small Bowel resections on 11/15. (3) DVT prophylaxis: Current visit: Yes Status: Acute SC Enoxaparin. Also on PPI therapy for GI Prophylaxis. Subjective Interval history since last seen: 38 year old woman originally admitted for an elective laparoscopic Tubal Ligation, readmitted with evidence of Bowel Perforation and Sepsis. Mrs. Kapadia had originally undergone an elective Laparoscopic b/l Salpingectomy on 11/12/2018, and initially admitted for postoperative pain control and observation. Following discharge on 11/13 she continued to experience significant pain despite her oral opiates that were prescribed postoperatively, and reported concurrent nausea and subjective fevers. Upon presentation to the ED she was found to have a significant leukocytosis, but with a fairly benign initial abdominal examination - referred at that time for admission (11/14/2018) for further evaluation and treatment. As her symptoms did not jose she was taken for a diagnostic Laparoscopy on 11/15, converted to an open exploratory laparotomy when evidence of likely bowel perforation was encountered. There were 2 distinct bowel perforations noted, with apparent spillage of colonic contents into the abdominal cavity. She underwent small bowel resection and repair, and moved to the ICU intubated and on Mechanical Ventilation. This morning Mrs. Kapadia continues to require pressor therapy, and remains on broad-spectrum antibiotics with Pip-Tazo. Her UOP remains low, and her WBC has worsened with significant bandemia. No other events reported. Remains afebrile. Exam Narrative Exam Narrative: General: Patient is sedated and intubated. Neck: Supple. Left sided SC TLC noted. CV: Regular, tachycardic, S1S2, No rubs, murmurs, or gallops. Pulmonary: Clear to auscultation bilaterally on limited anterior and lateral exam Abdomen: Absent Bowel Sounds, distended. Dressing in place with Serosanguinous drainage noted. Vascular: + b/l upper and lower extremity edema Psych: Normal mood and affect. Objective Objective Clinical Data: Abnormal lab results 11/15/18 11/16/18 11/16/18 Range/Units 16:10 04:12 04:12 WBC 29.80 H* 24.94 H (4.4-10.8) k/cumm Hgb 11.9 L (12.0-15.5) g/dL MPV 11.7 H 11.5 H (8.0-11.0) fL Absolute Neutrophils 27.36 H 23.19 H (1.2-6.7) k/cumm Absolute Lymphocytes 0.89 L 1.00 L (1.2-3.4) k/cumm Absolute Monocytes 1.13 H 0.75 H (0.11-0.7) k/cumm PT (9.3-11.0) sec Glucose 179 H D (70-100) mg/dL Lactate (0.6-1.4) mmol/l Calcium 7.1 L (8.5-10.1) mg/dL Total Bilirubin (0.2-1.0) mg/dL Total Protein 4.2 L (6.4-8.2) g/dL Albumin 1.1 L (3.4-5.0) g/dL 11/16/18 11/16/18 11/16/18 Range/Units 04:12 06:04 06:04 WBC 30.07 H* (4.4-10.8) k/cumm Hgb (12.0-15.5) g/dL MPV 11.8 H (8.0-11.0) fL Absolute Neutrophils 27.97 H (1.2-6.7) k/cumm Absolute Lymphocytes (1.2-3.4) k/cumm Absolute Monocytes 0.90 H (0.11-0.7) k/cumm PT (9.3-11.0) sec Glucose 191 H (70-100) mg/dL Lactate 2.0 H (0.6-1.4) mmol/l Calcium 7.2 L (8.5-10.1) mg/dL Total Bilirubin 1.4 H (0.2-1.0) mg/dL Total Protein 4.3 L (6.4-8.2) g/dL Albumin 1.1 L (3.4-5.0) g/dL 11/16/18 Range/Units 06:04 WBC (4.4-10.8) k/cumm Hgb (12.0-15.5) g/dL MPV (8.0-11.0) fL Absolute Neutrophils (1.2-6.7) k/cumm Absolute Lymphocytes (1.2-3.4) k/cumm Absolute Monocytes (0.11-0.7) k/cumm PT 11.2 H (9.3-11.0) sec Glucose (70-100) mg/dL Lactate (0.6-1.4) mmol/l Calcium (8.5-10.1) mg/dL Total Bilirubin (0.2-1.0) mg/dL Total Protein (6.4-8.2) g/dL Albumin (3.4-5.0) g/dL Vital Signs Temperature 36.9 C 11/16/18 12:33 Temperature Source Temporal Artery Scan 11/16/18 12:33 Pulse 131 H 11/16/18 13:31 Pulse Rhythm Regular 11/15/18 15:21 Pulse 135 H 11/16/18 13:31 Respiratory Rate 21 11/16/18 14:28 Respiratory Effort 11/16/18 12:33 Respiratory Depth Normal 11/16/18 12:33 Respiratory Pattern Normal 11/16/18 12:33 Blood Pressure 96/62 L 11/16/18 13:31 Blood Pressure Mean 69 11/16/18 13:31 Blood Pressure Position Supine 11/16/18 12:33 Pulse Oximetry 93 L 11/16/18 14:28 Respiratory End-tidal CO2 31 11/16/18 14:28 Oxygen Delivery Method Mechanical Ventilator 11/16/18 12:33 Oxygen Flow Rate 0 11/16/18 12:33 Fraction of Inspired Oxygen (FIO2) 40 11/16/18 14:28 Pain Level 3 11/16/18 07:42 Comment notified Kraig BROWN of temp value and pain level. 11/15/18 17:40 Intake & Output 11/15/18 11/16/18 11/16/18 23:59 11:59 23:59 Intake Total 3162.5 / 4832.500 7962.628 / 9223.205 1260.577 / 9223.205 Output Total 1225 / 1425 915 / 1337 422 / 1337 Balance 1937.5 / 3407.500 7047.628 / 7886.205 838.577 / 7886.205 Weight 112 kg Intake: IV 3162.5 / 4342.500 7887.628 / 9148.205 1260.577 / 9148.205 Injectate 75 / 75 Left Upper Anterior Abdomen 15 / 15 Right Upper Anterior Abdomen 60 / 60 Output: Gastric Drainage 100 / 375 275 / 375 Left Nare 100 / 375 275 / 375 Drainage 215 / 325 110 / 325 Left Upper Anterior Abdomen 140 / 200 60 / 200 Right Upper Anterior Abdomen 75 / 125 50 / 125 Urine 1225 / 1425 400 / 437 37 / 437 Estimated Blood Loss 200 / 200 Other: Urine Color Yellow Light Susy Dark Susy Urine Appearance Clear Clear Clear Urine Odor None Comment FC/dark susy urnine. Decreased UO. Neri in place; FC/dark susy urnine. Decreased UO. Gastric Occult Blood Left Nare Negative Voiding Methods Toilet Indwelling Catheter Laboratory Results WBC 30.07 k/cumm (4.4-10.8) H* 11/16/18 06:04 RBC 4.44 m/cumm (4.00-5.20) 11/16/18 06:04 Hgb 12.5 g/dL (12.0-15.5) 11/16/18 06:04 Hct 38.9 % (36.0-46.0) 11/16/18 06:04 MCV 87.6 fL (80-95) 11/16/18 06:04 MCH 28.2 pg (27.0-33.0) 11/16/18 06:04 MCHC 32.1 g/dL (32.0-36.0) 11/16/18 06:04 RDW 13.6 % (11.7-14.6) 11/16/18 06:04 Plt Count 298 x1000/uL (130-400) 11/16/18 06:04 MPV 11.8 fL (8.0-11.0) H 11/16/18 06:04 Immature Gran % See Differential 11/16/18 06:04 Neutrophils % 80.0 11/16/18 06:04 Band Neutrophils % 13.0 % 11/16/18 06:04 Lymphocytes % 4.0 11/16/18 06:04 Monocytes % 3.0 11/16/18 06:04 Eosinophils % 0.0 11/16/18 06:04 Basophils % 0.0 11/16/18 06:04 Absolute Neutrophils 27.97 k/cumm (1.2-6.7) H 11/16/18 06:04 Absolute Lymphocytes 1.20 k/cumm (1.2-3.4) 11/16/18 06:04 Absolute Monocytes 0.90 k/cumm (0.11-0.7) H 11/16/18 06:04 Absolute Eosinophils 0.00 k/cumm (0.0-0.7) 11/16/18 06:04 Absolute Basophils 0.00 k/cumm (0.0-0.2) 11/16/18 06:04 Differential Comment Manual differential 11/16/18 06:04 RBC Morphology Normal 11/16/18 06:04 PT 11.2 sec (9.3-11.0) H 11/16/18 06:04 INR 1.1 (0.9-1.1) 11/16/18 06:04 APTT 25.2 sec (21.0-31.4) 11/14/18 19:55 Sample Site Right radial 11/16/18 03:51 pCO2 43 mmHg (34-47) 11/16/18 03:51 pO2 98 mmHg (83-108) 11/16/18 03:51 O2 Saturation 97 % (94-98) 11/16/18 03:51 ABG pH 7.37 (7.35-7.45) 11/16/18 03:51 ABG HCO3 25 mmol/L (22-28) 11/16/18 03:51 ABG Total CO2 23 mmol/L (22-29) 11/16/18 03:51 ABG Base Excess -0.6 mmol/L (-3-3) 11/16/18 03:51 Oxygen Liter Flow 50% 5 peep L 11/16/18 03:51 FiO2 A/c 18 vt 420 % 11/16/18 03:51 Sodium 136 mmol/L (136-145) 11/16/18 06:04 Potassium 3.8 mmol/L (3.5-5.1) 11/16/18 06:04 Chloride 102 mmol/L (98-107) 11/16/18 06:04 Carbon Dioxide 23.9 mmol/L (21.0-32.0) 11/16/18 06:04 Anion Gap 10.1 mmol/L (3-11) 11/16/18 06:04 BUN 11 mg/dL (7-18) 11/16/18 06:04 Creatinine 0.87 mg/dL (0.55-1.02) 11/16/18 06:04 Estimated GFR/1.73 m2 >= 60.00 (mL/min/1.73m2) 11/16/18 06:04 Glucose 191 mg/dL (70-100) H 11/16/18 06:04 Lactate 2.0 mmol/l (0.6-1.4) H 11/16/18 04:12 Calcium 7.2 mg/dL (8.5-10.1) L 11/16/18 06:04 Magnesium 2.0 mg/dL (1.8-2.4) 11/14/18 19:55 Total Bilirubin 1.4 mg/dL (0.2-1.0) H 11/16/18 06:04 AST 28 U/L (15-37) 11/16/18 06:04 ALT 18 U/L (12-78) 11/16/18 06:04 Alkaline Phosphatase 70 U/L (46-116) 11/16/18 06:04 Total Protein 4.3 g/dL (6.4-8.2) L 11/16/18 06:04 Albumin 1.1 g/dL (3.4-5.0) L 11/16/18 06:04 Urine Color Yellow (Yellow) 11/15/18 14:09 Urine Clarity Clear 11/15/18 14:09 Urine pH 6.5 (5-8) 11/15/18 14:09 Ur Specific [place] 1.020 (1.005-1.025) 11/15/18 14:09 Urine Protein 100 mg/dL (Negative) H 11/15/18 14:09 Urine Ketones Negative mg/dL (Negative) 11/15/18 14:09 Urine Blood Small (Negative) H 11/15/18 14:09 Urine Nitrite Negative (Negative) 11/15/18 14:09 Urine Bilirubin Negative (Negative) 11/15/18 14:09 Urine Urobilinogen 0.2 EU/dL (Up TO 0.2) 11/15/18 14:09 Ur Leukocyte Esterase Negative (Negative) 11/15/18 14:09 Urine RBC 10-20 (0-2) H 11/15/18 14:09 Urine WBC 0-2 HPF (0-5) 11/15/18 14:09 Ur Epithelial Cells Negative HPF (Negative) 11/15/18 14:09 Urine Crystals Few amorphous HPF (Negative) 11/15/18 14:09 Urine Bacteria Rare HPF (Negative) 11/15/18 14:09 Urine Casts 5-10 wbc LPF (Negative) 11/15/18 14:09 Urine Mucus Negative (Negative) 11/15/18 14:09 Urine Other Moderate renal (Negative) 11/15/18 11:45 Ur Culture Indicated? Yes 11/15/18 14:09 Urine Glucose Negative mg/dL (Negative) 11/15/18 14:09
--- NOTE | 2018-11-16 15:11 | DI.VRAD_ITS ---
EXAM: XR Chest, 1 View EXAM DATE/TIME: 11/16/2018 2:02 PM CLINICAL HISTORY: 38 years old, female; Device placement; Picc TECHNIQUE: Imaging protocol: XR of the chest, 1 view. COMPARISON: CR XR PORTABLE CHEST AP 11/16/2018 3:10 AM FINDINGS: Tubes, catheters and devices: There is an endotracheal tube present with the tip 5.2 cm above the regino. An enteric tube extends down into the stomach and off of the image. There is a left subclavian central line present with the tip in the superior vena cava. Lungs: Decreased lung volumes. There is bibasilar airspace disease, worse on the left, which could be due to pneumonia and/or atelectasis. Pleural space: There is a small left pleural effusion. No right pleural effusion. No pneumothorax. Heart/Mediastinum: The heart is not enlarged. Bones/joints: No acute osseous abnormality. IMPRESSION: 1. Left subclavian central line present with the tip in the superior vena cava. 2. Decreased lung volumes. Asymmetric bibasilar airspace disease. Dictated and Authenticated by: Connor Corley MD. Ordering:FELECIA Ceja MD
--- NOTE | 2018-11-16 15:15 | DI.VRAD_ITS ---
EXAM: XR Chest, 1 View EXAM DATE/TIME: 11/16/2018 1:40 PM CLINICAL HISTORY: 38 years old, female; Device placement; Picc TECHNIQUE: Imaging protocol: XR of the chest, 1 view. COMPARISON: CR XR PORTABLE CHEST AP 11/16/2018 3:10 AM FINDINGS: Tubes, catheters and devices: There is an endotracheal tube present with the tip 5.0 cm above regino. An enteric tube is present, extending down into the stomach and off on the image. There is a left subclavian central line present with the tip against the right lateral wall of superior vena cava or extending just up into the right brachiocephalic vein. Lungs: Decreased lung volumes. There is bibasilar airspace disease, worse on the left, which could be due to pneumonia and/or atelectasis. Pleural space: There is a small left pleural effusion. No right pleural effusion. No pneumothorax. Heart/Mediastinum: The heart is not enlarged. Bones/joints: No acute osseous abnormality. IMPRESSION: 1. Central line tip against the right lateral wall of the superior vena cava or extending just up into the right brachiocephalic vein. 2. Asymmetric bibasilar airspace disease. Dictated and Authenticated by: Connor Corley MD. Ordering:FELECIA Ceja MD
[2018-11-16] MEDS: PROPOFOL 1,000 MG/100 ML BTL 40.3 MG IVPB ×4 (15:47→23:04)
[2018-11-16 16:55] LABS: Fibrinogen 757 mg/dl (171-384)
[2018-11-16] MEDS: Normal Saline 500 ML 30 ML IV (17:26)
--- NOTE | 2018-11-16 18:01 | W.PM.OP ---
Operative Note DATE OF PROCEDURE: 11/15/18 PRE-OP DIAGNOSIS: Abdominal pain, rule out bowel injury POST-OP DIAGNOSIS: other (Small bowel perforation ) PROCEDURE: 1. Diagnostic laparoscopy 2. Exploratory laparotomy 3. Small bowel resection x 4. Left subclavian central line placement SURGEON: Carlos Dumont ASSISTING SURGEON: Marcial Andino ANESTHESIA: GETA ESTIMATED BLOOD LOSS: 200 PATHOLOGY: other (Small bowel segments x 2) Patient was transported to: ICU Patient's condition: critical
[2018-11-16] MEDS: VANCOMYCIN 1,500 MG in Normal Saline 250 ML 166.667 MG IVPB (18:27)
[2018-11-16] MEDS: Normal Saline 500 ML IV (20:55)
[2018-11-16] MEDS: PIPERACILLIN/TAZO 4.5 GM in Normal Saline 100 ML IVPB (21:33)
[2018-11-17] VITALS (31 sets, daily range): BP systolic 105–127; BP diastolic 52–82; PULSE 91–221; RESP 16–26; TEMP 36.3–38.1; O2SAT 88–99
[2018-11-17] MEDS: ACETAMINOPHEN 1,000 MG/100 ML BTL 400 MG IVPB ×2 (00:08→07:52)
[2018-11-17] MEDS: Normal Saline 1,000 ML 250 ML IV ×2 (00:51→04:42)
[2018-11-17] MEDS: PROPOFOL 1,000 MG/100 ML BTL 40.3 MG IVPB ×3 (01:16→06:28)
[2018-11-17] MEDS: PIPERACILLIN/TAZO 4.5 GM in Normal Saline 100 ML IVPB ×2 (03:11→11:44)
[2018-11-17] MEDS: Normal Saline Flush 10 ML SYR IVP (04:10)
[2018-11-17] MEDS: Pantoprazole 40 MG VIAL IVP (04:10)
[2018-11-17] MEDS: Enoxaparin 40 MG/0.4 ML SYR SC (05:31)
[2018-11-17 07:42] LABS: Lactate-non-spesis 1.3 mmol/l (0.6-1.4)
[2018-11-17 07:51] LABS: HCT 32.2 % (36.0-46.0); HGB 10.2 g/dL (12.0-15.5); Mean Corp. HGB Concentration 31.7 g/dL (32.0-36.0); Mean Corpuscular Hemoglobin 28.2 pg (27.0-33.0); Mean Platelet Volume 11.3 fL (8.0-11.0); Platelet Count 256 x1000/uL (130-400); RBC 3.62 m/cumm (4.00-5.20); RBC Distribution Width 13.8 % (11.7-14.6)
[2018-11-17 08:12] LABS: ALT 20 U/L (12-78); AST 30 U/L (15-37); Albumin 0.9 g/dL (3.4-5.0); Alkaline Phosphatase 100 U/L (46-116); Anion Gap 10.2 mmol/L (3-11); BUN 11 mg/dL (7-18); Bilirubin, Total 0.3 mg/dL (0.2-1.0); CO2 21.8 mmol/L (21.0-32.0); CREATININE 0.78 mg/dL (0.55-1.02); Chloride 106 mmol/L (98-107); Glucose 191 mg/dL (70-100); Potassium 3.5 mmol/L (3.5-5.1); Sodium 138 mmol/L (136-145); Total Protein 4.8 g/dL (6.4-8.2)
[2018-11-17 08:17] LABS: Calcium 6.4 mg/dL (8.5-10.1)
[2018-11-17 08:18] LABS: NT-proBNP 117 pg/mL
[2018-11-17 08:26] LABS: Magnesium 1.7 mg/dL (1.8-2.4)
[2018-11-17 08:29] LABS: Absolute Neutrophil Count 28.92 k/cumm (1.2-6.7)
[2018-11-17 08:30] LABS: Absolute Lymphocyte Count 0.31 k/cumm (1.2-3.4); Absolute Monocyte Count 0.62 k/cumm (0.11-0.7); Diff Comment Manual Differential; RBC Morphology Normal
[2018-11-17] MEDS: PROPOFOL 1,000 MG/100 ML BTL 47 MG IVPB ×3 (08:39→12:13)
[2018-11-17 08:50] LABS: Procalcitonin 2.1 ng/mL
--- NOTE | 2018-11-17 09:41 | PGE_ITS ---
Date of Service Date of service: 11/17/18 Time of Service: 09:35 Assessment and Plan (1) Sepsis: Current visit: Yes Status: Acute 38yo female POD#1 s/p dx lap converted to ex lap, SBR x 2 for perforated viscous. continuous ICU monitoring BP support mechanical ventilation pain control daily labs correct electrolyte derangements DVT prophylaxis strict I/Os Pt to be transferred to tertiary care center (2) S/P small bowel resection: Current visit: Yes Status: Acute Subjective Interval history since last seen: Pt is intubated and sedated. Nursing reports increasing anasarca. Exam Const General: patient mechanically ventilated Nutritional Appearance: obese and edematous Other: pt intubated and sedated [facility] General nose exam: other (NGT in place, draining bilious fluid) Mouth: other (endotracheal tube in place) Chest Chest: other (left subclavian central line in place) Resp Effort & Inspection: other (mechanicaly ventilated) Auscultation: diminished lung sounds Cardio Rhythm: regular rhythm Heart Sounds: S1 normal and S2 normal GI Inspection: obesity Palpation: soft, not rigid and other Other: BYRON x 2 draining serous dressing; sterile dressing placed in OR in place; General: other (orellana in place, draining clear light yellow urine) Skin General skin exam: no rashes or lesions noted and other (anasarca throughtout without any skin breakdown noted) Neuro General: other (sedated) Extrem General: no clubbing, no cyanosis, edema and pedal edema Objective Objective Clinical Data: Abnormal lab results 11/17/18 11/17/18 11/17/18 Range/Units 07:25 07:25 07:25 WBC 31.10 H* (4.4-10.8) k/cumm RBC 3.62 L (4.00-5.20) m/cumm Hgb 10.2 L D (12.0-15.5) g/dL Hct 32.2 L (36.0-46.0) % MCHC 31.7 L (32.0-36.0) g/dL MPV 11.3 H (8.0-11.0) fL Absolute Neutrophils 28.92 H (1.2-6.7) k/cumm Absolute Lymphocytes 0.31 L (1.2-3.4) k/cumm Glucose 191 H (70-100) mg/dL Calcium 6.4 L* (8.5-10.1) mg/dL Magnesium 1.7 L (1.8-2.4) mg/dL Total Protein 4.8 L (6.4-8.2) g/dL Albumin 0.9 L (3.4-5.0) g/dL Vital Signs Temperature 98.4 F 11/17/18 04:00 Temperature Source Tympanic 11/17/18 02:18 Pulse 221 H 11/17/18 08:00 Pulse Rhythm Regular 11/15/18 15:21 Pulse 108 H 11/17/18 08:00 Respiratory Rate 22 11/17/18 08:00 Respiratory Effort 11/17/18 04:00 Respiratory Depth Normal 11/17/18 04:00 Respiratory Pattern Normal 11/17/18 04:00 Blood Pressure 108/82 11/17/18 08:00 Blood Pressure Mean 88 11/17/18 08:00 Blood Pressure Position Supine 11/16/18 20:23 Pulse Oximetry 95 11/17/18 08:54 Respiratory End-tidal CO2 28 11/17/18 08:00 Oxygen Delivery Method Mechanical Ventilator 11/17/18 04:00 Oxygen Flow Rate 0 11/17/18 04:00 Fraction of Inspired Oxygen (FIO2) 60 11/17/18 08:54 Pain Level 0 11/17/18 04:00 Comment 11/17/18 02:18 Intake & Output 11/16/18 11/16/18 11/17/18 11:59 23:59 11:59 Intake Total 7962.628 / 19762.892 5043.264 / 70258.892 3476.371 / 3476.371 Output Total 915 / 2107 1042 / 2107 885 / 885 Balance 7047.628 / 10580.892 4001.264 / 88714.892 2591.371 / 2591.371 Weight 246 lb 14.684 oz 258 lb 2.581 oz Intake: IV 7887.628 / 33408.892 4963.264 / 62280.892 3476.371 / 3476.371 Injectate 75 / 155 80 / 155 Left Upper Anterior Abdomen 15 / 65 50 / 65 Right Upper Anterior Abdomen 60 / 90 30 / 90 Output: Gastric Drainage 100 / 650 550 / 650 150 / 150 Left Nare 100 / 650 550 / 650 150 / 150 Drainage 215 / 395 180 / 395 40 / 40 Left Upper Anterior Abdomen 140 / 240 100 / 240 Right Upper Anterior Abdomen 75 / 155 80 / 155 40 / 40 Urine 400 / 862 312 / 862 695 / 695 Estimated Blood Loss 200 / 200 Other: Urine Color Light Susy Light Susy Light Susy Urine Appearance Clear Clear Urine Odor None Comment FC/dark susy urnine. Decreased UO. orellana patent orellana is patent and draining Gastric Occult Blood Left Nare Negative Negative Negative Voiding Methods Indwelling Catheter Laboratory Results WBC 31.10 k/cumm (4.4-10.8) H* 11/17/18 07:25 RBC 3.62 m/cumm (4.00-5.20) L 11/17/18 07:25 Hgb 10.2 g/dL (12.0-15.5) L D 11/17/18 07:25 Hct 32.2 % (36.0-46.0) L 11/17/18 07:25 MCV 89.0 fL (80-95) 11/17/18 07:25 MCH 28.2 pg (27.0-33.0) 11/17/18 07:25 MCHC 31.7 g/dL (32.0-36.0) L 11/17/18 07:25 RDW 13.8 % (11.7-14.6) 11/17/18 07:25 Plt Count 256 x1000/uL (130-400) 11/17/18 07:25 MPV 11.3 fL (8.0-11.0) H 11/17/18 07:25 Immature Gran % See Differential 11/17/18 07:25 Neutrophils % 79.0 11/17/18 07:25 Band Neutrophils % 14.0 % 11/17/18 07:25 Lymphocytes % 1.0 11/17/18 07:25 Monocytes % 2.0 11/17/18 07:25 Eosinophils % 0.0 11/17/18 07:25 Basophils % 0.0 11/17/18 07:25 Metamyelocytes % 2.0 % 11/17/18 07:25 Myelocytes % 2.0 % 11/17/18 07:25 Absolute Neutrophils 28.92 k/cumm (1.2-6.7) H 11/17/18 07:25 Absolute Lymphocytes 0.31 k/cumm (1.2-3.4) L 11/17/18 07:25 Absolute Monocytes 0.62 k/cumm (0.11-0.7) 11/17/18 07:25 Absolute Eosinophils 0.00 k/cumm (0.0-0.7) 11/17/18 07:25 Absolute Basophils 0.00 k/cumm (0.0-0.2) 11/17/18 07:25 Differential Comment Manual differential 11/17/18 07:25 RBC Morphology Normal 11/17/18 07:25 PT 11.2 sec (9.3-11.0) H 11/16/18 06:04 INR 1.1 (0.9-1.1) 11/16/18 06:04 APTT 25.2 sec (21.0-31.4) 11/14/18 19:55 Sample Site Right radial 11/16/18 03:51 pCO2 43 mmHg (34-47) 11/16/18 03:51 pO2 98 mmHg (83-108) 11/16/18 03:51 O2 Saturation 97 % (94-98) 11/16/18 03:51 ABG pH 7.37 (7.35-7.45) 11/16/18 03:51 ABG HCO3 25 mmol/L (22-28) 11/16/18 03:51 ABG Total CO2 23 mmol/L (22-29) 11/16/18 03:51 ABG Base Excess -0.6 mmol/L (-3-3) 11/16/18 03:51 Oxygen Liter Flow 50% 5 peep L 11/16/18 03:51 FiO2 A/c 18 vt 420 % 11/16/18 03:51 Sodium 138 mmol/L (136-145) 11/17/18 07:25 Potassium 3.5 mmol/L (3.5-5.1) 11/17/18 07:25 Chloride 106 mmol/L (98-107) 11/17/18 07:25 Carbon Dioxide 21.8 mmol/L (21.0-32.0) 11/17/18 07:25 Anion Gap 10.2 mmol/L (3-11) 11/17/18 07:25 BUN 11 mg/dL (7-18) 11/17/18 07:25 Creatinine 0.78 mg/dL (0.55-1.02) 11/17/18 07:25 Estimated GFR/1.73 m2 >= 60.00 (mL/min/1.73m2) 11/17/18 07:25 Glucose 191 mg/dL (70-100) H 11/17/18 07:25 Lactate 1.3 mmol/l (0.6-1.4) 11/17/18 07:25 Calcium 6.4 mg/dL (8.5-10.1) L* 11/17/18 07:25 Magnesium 1.7 mg/dL (1.8-2.4) L 11/17/18 07:25 Total Bilirubin 0.3 mg/dL (0.2-1.0) 11/17/18 07:25 AST 30 U/L (15-37) 11/17/18 07:25 ALT 20 U/L (12-78) 11/17/18 07:25 Alkaline Phosphatase 100 U/L (46-116) 11/17/18 07:25 NT-Pro-B Natriuret Pep 117 pg/mL (-299) 11/17/18 07:25 Total Protein 4.8 g/dL (6.4-8.2) L 11/17/18 07:25 Albumin 0.9 g/dL (3.4-5.0) L 11/17/18 07:25 Procalcitonin 2.1 ng/mL 11/17/18 07:25 Urine Color Yellow (Yellow) 11/15/18 14:09 Urine Clarity Clear 11/15/18 14:09 Urine pH 6.5 (5-8) 11/15/18 14:09 Ur Specific Reform 1.020 (1.005-1.025) 11/15/18 14:09 Urine Protein 100 mg/dL (Negative) H 11/15/18 14:09 Urine Ketones Negative mg/dL (Negative) 11/15/18 14:09 Urine Blood Small (Negative) H 11/15/18 14:09 Urine Nitrite Negative (Negative) 11/15/18 14:09 Urine Bilirubin Negative (Negative) 11/15/18 14:09 Urine Urobilinogen 0.2 EU/dL (Up TO 0.2) 11/15/18 14:09 Ur Leukocyte Esterase Negative (Negative) 11/15/18 14:09 Urine RBC 10-20 (0-2) H 11/15/18 14:09 Urine WBC 0-2 HPF (0-5) 11/15/18 14:09 Ur Epithelial Cells Negative HPF (Negative) 11/15/18 14:09 Urine Crystals Few amorphous HPF (Negative) 11/15/18 14:09 Urine Bacteria Rare HPF (Negative) 11/15/18 14:09 Urine Casts 5-10 wbc LPF (Negative) 11/15/18 14:09 Urine Mucus Negative (Negative) 11/15/18 14:09 Urine Other Moderate renal (Negative) 11/15/18 11:45 Ur Culture Indicated? Yes 11/15/18 14:09 Urine Glucose Negative mg/dL (Negative) 11/15/18 14:09
--- NOTE | 2018-11-17 09:41 | DI.RAD_ITS ---
SYMPTOMS/DIAGNOSIS: CENTRAL LINE PLACEMENT CHECK PORTABLE SEMI-ERECT CHEST: Comparison is made with November,. The endotracheal tube, left subclavian central venous catheter and nasogastric tube are unchanged. There is a small left pleural effusion, as well as increased densities at the lung base, which do not appear significantly changed given differences in projection. There is likely also a tiny right pleural effusion.
[2018-11-17] MEDS: MAGNESIUM SULFATE 2 GM/50 ML BAG IVPB (09:56)
[2018-11-17 10:24] LABS: Hemoglobin A1C 7.6 % (4.5-6.2)
[2018-11-17] MEDS: VANCOMYCIN 1,500 MG in Normal Saline 250 ML 167 MG IVPB (10:30)
--- NOTE | 2018-11-17 10:43 | ROE_ITS ---
DATE OF PROCEDURE: November 16, 2018 PREOPERATIVE DIAGNOSIS: Abdominal pain, rule out bowel injury. POSTOPERATIVE DIAGNOSIS: Bowel perforation. PROCEDURE: 1. Diagnostic laparoscopy. 2. Exploratory laparotomy. 3. Small bowel resection x2. 4. Left subclavian central line placement. SURGEON: Dr. Carlos Dumont. DEPOSIT REFUND CLERK: Dr. Marcial Andino and Darren Alvarado FINDINGS: 1. Upon Dr. Dumont performing a left upper quadrant laparoscopic trocar placement, he established a pneumoperitoneum and discovered evidence of bowel perforation, including seeing collections of bilious fluid in the left pericolic gutter. 2. Upon opening the supraumbilical incision, a small loop of bowel seeped succus and it was apparent that there was a small hole in the antimesenteric border of a loop of bowel just below the incision with associated spillage of succus. 3. Upon mobilization of the small bowel and running the bowel, a mid to distal jejunal loop was found to have a perforation near the mesenteric border of the bowel and had spilled significant succus into the preferentially into the left paracolic gutter. ANESTHESIA: General endotracheal anesthesia. FLUIDS: 4 liters of crystalloid. ESTIMATED BLOOD LOSS: 200 cc's DRAINS: Two Savage drains were placed, one running inferiorly down the left paracolic gutter into the pelvis; another on the right side in the right paracolic gutter. SPECIMENS: 1. Proximal perforation, short segment approximately 3 cm. 2. Perforation of distal small bowel. COMPLICATIONS: None. CONDITION: The patient was transferred at the conclusion of the case intubated and in critical condition to the Intensive Care Unit. INDICATIONS: This is a 38-year-old female who underwent an elective laparoscopic tubal ligation on November 12 under the care of Dr. Guthrie. She also had a removal of an IUD performed. In the recovery room she was complaining of increased lower abdominal pain and a transabdominal and transvaginal ultrasound completed there revealed that she had approximately 70 cc's of free fluid in the pelvis, presumably from a ruptured ovarian cyst. The patient was kept in the hospital overnight for pain control and was discharged on the morning of November 13. On the evening of November 14, the patient presented to the Emergency Department with increasing complaints of persistent abdominal pain, though she had judiciously been following the recommendations to take her narcotic pain medication at home, as well as she was feeling short of breath. In the Emergency Department she underwent a CTA of the chest that did not reveal any pulmonary emboli, but did show small pleural effusions, right greater than left, and a CT of the abdomen and pelvis, which revealed mild enteritis and some small bowel loops and low to moderate volume ascites, likely related to residual rupture of cyst fluid with a likely superimposed postoperative component and there was no evidence of an abscess formed at this time. The patient was admitted to the hospital under the Obstetrics and Gynecology service and General Surgery was consulted. After examining the patient myself and reviewing the patient's history with the patient and Dr. Dumont, the admitting golf club manager, and obtaining further clinical information from Dr. Guthrie, I agreed with the decision to admit the patient overnight for observation, serial exams, and repeat labs in the morning and to follow her clinical course from there. Early in the day of November 15 on my examination of the patient, she seemed much improved, her tachypnea had resolved and she was able to ambulate with some discomfort, but was overall stating that her abdominal pain was decreased. She was voiding without difficulty and was able to tolerate some p.o. intake. Apparently, however later in the day on Dr. Dumont's re-examination she was not progressing as well as had expected and her leukocytosis was not resolving. Therefore he made the decision to take the patient to the operating room. Reportedly Dr. Dumont initiated the procedure by placing a trocar in the left upper quadrant using a Visiport after trying a Veress needle. Once upon establishing pneumoperitoneum and examining the abdomen, he saw bilious fluid around the left paracolic gutter and at that time halted the procedure and re- consulted General Surgery for assistance. I immediately came to the hospital and to the Operating Room and assisted Dr. Dumont with the remainder of the procedure that will follow. PROCEDURE: Operating under the informed consent that Dr. Dumont had obtained from the patient, I was called emergently to the Operating Room to consult and assist on this case. Upon a quick review of his findings, Dr. Dumont and I discussed and made the decision to convert to an open exploratory laparotomy. At the time of my entering the Operating Room, the patient was already under general anesthesia with sequential compression devices in place and had received IV Zosyn prophylaxis. We began the exploratory laparotomy by opening the patient's previous midline incision slowly layer by layer. Once we released the superficial incision and started to slowly divide the subcutaneous tissues, a little burst of succus presented through the incision and thus we continued to proceed very carefully and once we had the incision opened we were able to quickly visualize that there was a loop of bowel just below the incision that was perforated and we quickly moved to contain the spillage with Hull clamps. We quickly extended our incision further inferiorly as to better visualize the abdomen. Once we had better visualization of this loop of bowel, utilizing #3-0 silk I placed closing stitches in a [id number] pattern to be able to mitigate any further spillage and allow us to continue to explore the entire field. Once this was controlled, we turned our attention to continuing to open the midline and start to aspirate several pockets of succus and loculated fluid collections that had formed. We extended our incision cephalad and set up an Omni self-retaining retractor to aid in visualization of the entire abdomen. Once this was achieved, it was clear that there were some areas that had begun to become sucked down and there was extensive amounts of fibrinous exudate throughout, however all the tissue visualized was viable, nothing looked ischemic, and we turned our attention to slowly, meticulously and carefully dividing the small loculations while aspirating any fluid collections and the loops of bowel. Once we had done this fairly satisfactorily, we turned our attention to starting to run the bowel, starting at the terminal ileum emanating from the cecum. We ran the bowel extensively and carefully, examining all surfaces, looking for any serosal tears and did not encounter any until we once again reached the spot that we had previously over-sewed, and that was still well opposed and not leaking. As we continued to move more proximal, we found another perforation that was close to the mesenteric border at the superior aspect of a loop near the transverse colon. This created a loculated area that allowed for a great amount of spillage to come down along kind of adjacent to the left colon. We quickly gained control of this aperture, which was approximately 1 cm. It was noted to have rolled edges and the suggestion that this was probably the original area of perforation. This area was quickly closed using Hull clamps and controlled. The area was thoroughly aspirated and irrigated. We then continued to run the bowel all the way to the ligament of Treitz and turned our attention to resecting the small segments of bowel that we found had perforations. Performing standard functional end-to-end and [id number] anastomosis using HAN blue loads and closure of the common channel with TA-60 stapler we easily achieved these small bowel resections in similar fashion utilizing #3-0 silk stitches to over-sew the corners and provide extra strength to the anastomosis. They were each widely patent, very well-perfused without any signs of ischemia or compromise. We then once again started to run the bowel, irrigating every area encountered sequentially until we had run the bowel entirely again, distal to proximal and proximal to distal, and thoroughly irrigated the entire abdomen, paying close attention to the right upper quadrant. The stomach was palpated to ensure that the NG tube was in proper position. We also turned our attention to irrigating sub and suprahepatic, ensuring that there were no loculated collections of or below the liver. The entire abdomen was irrigated thoroughly utilizing greater than approximately 9500 cc's of crystalloid. Two Savage drains were then placed, each in the right and left paracolic gutters down into the pelvis. The midline was then closed using #1 PDS in a [id number] fashion, after all counts of sharp objects was correct. The fascia was well closed. The wound was irrigated thoroughly and then the skin was closed using interrupted adi. Telfa dwayne soaked in Betadine replaced judiciously within the wound to help allow for any drainage of any collections that might form in the thick subcutaneous space. A dry sterile dressing was placed after the Savage drains were sutured into place. As stated before, all counts of sharp and soft objects was correct at the end of the procedure. During the latter course of the procedure with the plans to move the patient to the Intensive Care Unit, discussions were made between myself and Dr. Dumont, the other operating surgeon, and our WAREHOUSE SPECIALIST, that it was likely that the patient should be transported to the ICU intubated. We further discussed the patient's likely ongoing need for extensive amounts of IV fluids and antibiotics and medications in the upcoming days and that she would benefit from a triple lumen catheter. This was agreed upon by all of us. Therefore at the conclusion of the exploratory laparotomy and small bowel resections, a left subclavian triple- lumen catheter was placed by me. PROCEDURE: While still intubated, the patient was repositioned in slight Trendelenburg position. The left upper chest and neck were prepped and draped in the usual standard fashion. Utilizing the full body drape that comes in the packet, the patient was properly draped. Using an 18 gauge finder needle, the left subclavian vein was cannulated. The wire was introduced into the needle and the needle was removed. The skin was then incised slightly to allow for dilation of the subcutaneous tract, which was done with the dilator. The triple-lumen catheter was then placed over the wire in standard Seldinger technique. The wire was removed after it had been under control the entire time. Each of the catheter lines were aspirated and flushed and that was able to be completed without difficulty. The skin was then once again cleansed using Chlorhexidine. The line locks were placed and sutured into place. A sterile dressing was placed and the drapes removed. The patient was then transported to the ICU, at which time she underwent an immediate chest x-ray to establish placement of the central line and endotracheal tube placement.
--- NOTE | 2018-11-17 10:54 | PDOC.CMPRO ---
- If Service Date Differs Date of service: 11/17/18 Time of Service: 10:54 Care Management Progress Note S/O: Angeline remains intubated in the ICU at this time. CANDICE spoke with Dr. Dumont this morning and requested that Angeline's admission status be changed to acute inpatient admission. CANDICE spoke with STEPHANIE Rodriguez, whom states that Angeline will be transferred to a tertiary facility today. Per Dr. Randall, Angeline has been accepted at [facility]. A: 38yo female readmitted following a laparoscopic bilateral salpingectomy 11/12/18. P: Angeline remains intubated at this time and will transfer to [facility] today via EMS. Admission status to be changed to acute inpatient admission by Dr. Dumont.
[2018-11-17] MEDS: Normal Saline 1,000 ML 50 ML IV (11:22)
--- NOTE | 2018-11-17 16:36 | W.PM.PROGNOT ---
Date of Service Date of service: 11/17/18 Time of Service: 16:36 Assessment and Plan (1) Sepsis: Current visit: No Status: Acute Sepsis with intra-abdominal source from Small Bowel Perforations - Blood Cultures with No Growth X24 and 48 hours. Continue Zosyn, with Vancomycin also added for coverage of what is interpreted on CXR as a left sided infiltrate. Currently on pressor therapy with attempts at weaning Norepinephrine, with Phenylephrine being introduced in attempt to decrease patient's Tachycardia. Appears adequately hydrated now with CVP of 14 last checked and adequate UOP - IVFs were decreased (patient also appears largely volume overloaded). Patient continues to be febrile, with continued, significant, and mildly worsening leukocytosis with bandemia, still requiring pressor support. Now with potential for pulmonary infiltrate as well. Although stable, Suspect that her care may be prolonged, and that she would likely benefit from a higher level of care. This was discussed with DUPLICATOR PUNCH SET UP OPERATOR who was in agreement. She [place] [facility] [place] (2) Small bowel perforation: Current visit: No Status: Acute S/p 2 small Bowel resections on 11/15. (3) DVT prophylaxis: Current visit: No Status: Acute SC Enoxaparin. Also on PPI therapy for GI Prophylaxis. Subjective Interval history since last seen: 38 year old woman originally admitted for an elective laparoscopic Tubal Ligation, readmitted with evidence of Bowel Perforation and Sepsis. Mrs. Kapadia had originally undergone an elective Laparoscopic b/l Salpingectomy on 11/12/2018, and initially admitted for postoperative pain control and observation. Following discharge on 11/13 she continued to experience significant pain despite her oral opiates that were prescribed postoperatively, and reported concurrent nausea and subjective fevers. Upon presentation to the ED she was found to have a significant leukocytosis, but with a fairly benign initial abdominal examination - referred at that time for admission (11/14/2018) for further evaluation and treatment. As her symptoms did not jose she was taken for a diagnostic Laparoscopy on 11/15, converted to an open exploratory laparotomy when evidence of likely bowel perforation was encountered. There were 2 distinct bowel perforations noted, with apparent spillage of colonic contents into the abdominal cavity. She underwent small bowel resection and repair, and moved to the ICU intubated and on Mechanical Ventilation. This morning Mrs. Kapadia continues to require pressor therapy, and remains on broad-spectrum antibiotics with Pip-Tazo as well as Vancomycin. Her Leukocytosis remains significant and slightly worse than yesterday, with continued and mildly worsening bandemia. Her UOP has improved and stabilized. No other events reported. Remains afebrile. Exam Narrative Exam Narrative: General: Patient is sedated and intubated. Neck: Supple. Left sided SC TLC noted. CV: Regular, tachycardic, S1S2, No rubs, murmurs, or gallops. Pulmonary: Clear to auscultation bilaterally on limited anterior and lateral exam Abdomen: Absent Bowel Sounds, distended. Dressing in place with Serosanguinous drainage noted. Vascular: + b/l upper and lower extremity edema Psych: Normal mood and affect. Objective Objective Clinical Data: Abnormal lab results 11/16/18 11/17/18 11/17/18 Range/Units 06:04 07:25 07:25 WBC (4.4-10.8) k/cumm RBC (4.00-5.20) m/cumm Hgb (12.0-15.5) g/dL Hct (36.0-46.0) % MCHC (32.0-36.0) g/dL MPV (8.0-11.0) fL Absolute Neutrophils (1.2-6.7) k/cumm Absolute Lymphocytes (1.2-3.4) k/cumm Fibrinogen 757 H (171-384) mg/dL Glucose 191 H (70-100) mg/dL Hemoglobin A1c (4.5-6.2) % Calcium 6.4 L* (8.5-10.1) mg/dL Magnesium 1.7 L (1.8-2.4) mg/dL Total Protein 4.8 L (6.4-8.2) g/dL Albumin 0.9 L (3.4-5.0) g/dL 11/17/18 11/17/18 Range/Units 07:25 07:25 WBC 31.10 H* (4.4-10.8) k/cumm RBC 3.62 L (4.00-5.20) m/cumm Hgb 10.2 L D (12.0-15.5) g/dL Hct 32.2 L (36.0-46.0) % MCHC 31.7 L (32.0-36.0) g/dL MPV 11.3 H (8.0-11.0) fL Absolute Neutrophils 28.92 H (1.2-6.7) k/cumm Absolute Lymphocytes 0.31 L (1.2-3.4) k/cumm Fibrinogen (171-384) mg/dL Glucose (70-100) mg/dL Hemoglobin A1c 7.6 H (4.5-6.2) % Calcium (8.5-10.1) mg/dL Magnesium (1.8-2.4) mg/dL Total Protein (6.4-8.2) g/dL Albumin (3.4-5.0) g/dL Vital Signs Temperature 36.3 C L 11/17/18 11:24 Temperature Source Temporal Artery Scan 11/17/18 11:24 Pulse 92 H 11/17/18 12:01 Pulse Rhythm Regular 11/15/18 15:21 Pulse 94 H 11/17/18 12:01 Respiratory Rate 17 11/17/18 12:01 Respiratory Effort 11/17/18 11:24 Respiratory Depth Normal 11/17/18 04:00 Respiratory Pattern Normal 11/17/18 04:00 Blood Pressure 106/53 L 11/17/18 12:01 Blood Pressure Mean 65 11/17/18 12:01 Blood Pressure Position Supine 11/17/18 11:24 Pulse Oximetry 97 11/17/18 12:01 Respiratory End-tidal CO2 32 11/17/18 12:01 Oxygen Delivery Method Mechanical Ventilator 11/17/18 11:57 Oxygen Flow Rate 0 11/17/18 11:57 Fraction of Inspired Oxygen (FIO2) 60 11/17/18 12:00 Pain Level 0 11/17/18 04:00 Comment 11/17/18 02:18 Intake & Output 11/16/18 11/17/18 11/17/18 23:59 11:59 23:59 Intake Total 5043.264 / 68275.892 4079.704 / 4143.937 64.233 / 4143.937 Output Total 1042 / 2107 1290 / 1415 125 / 1415 Balance 4001.264 / 78127.892 2789.704 / 2728.937 -60.767 / 2728.937 Weight 117.1 kg Intake: IV 4963.264 / 49960.892 4079.704 / 4143.937 64.233 / 4143.937 Injectate 80 / 155 Left Upper Anterior Abdomen 50 / 65 Right Upper Anterior Abdomen 30 / 90 Output: Gastric Drainage 550 / 650 150 / 275 125 / 275 Left Nare 550 / 650 150 / 275 125 / 275 Drainage 180 / 395 155 / 155 Left Upper Anterior Abdomen 100 / 240 50 / 50 Right Upper Anterior Abdomen 80 / 155 105 / 105 Urine 312 / 862 985 / 985 Other: Urine Color Light Susy Light Susy Urine Appearance Clear Clear Comment orellana patent Orellana intact and draining clear light susy urine. Gastric Occult Blood Left Nare Negative Negative Laboratory Results WBC 31.10 k/cumm (4.4-10.8) H* 11/17/18 07:25 RBC 3.62 m/cumm (4.00-5.20) L 11/17/18 07:25 Hgb 10.2 g/dL (12.0-15.5) L D 11/17/18 07:25 Hct 32.2 % (36.0-46.0) L 11/17/18 07:25 MCV 89.0 fL (80-95) 11/17/18 07:25 MCH 28.2 pg (27.0-33.0) 11/17/18 07:25 MCHC 31.7 g/dL (32.0-36.0) L 11/17/18 07:25 RDW 13.8 % (11.7-14.6) 11/17/18 07:25 Plt Count 256 x1000/uL (130-400) 11/17/18 07:25 MPV 11.3 fL (8.0-11.0) H 11/17/18 07:25 Immature Gran % See Differential 11/17/18 07:25 Neutrophils % 79.0 11/17/18 07:25 Band Neutrophils % 14.0 % 11/17/18 07:25 Lymphocytes % 1.0 11/17/18 07:25 Monocytes % 2.0 11/17/18 07:25 Eosinophils % 0.0 11/17/18 07:25 Basophils % 0.0 11/17/18 07:25 Metamyelocytes % 2.0 % 11/17/18 07:25 Myelocytes % 2.0 % 11/17/18 07:25 Absolute Neutrophils 28.92 k/cumm (1.2-6.7) H 11/17/18 07:25 Absolute Lymphocytes 0.31 k/cumm (1.2-3.4) L 11/17/18 07:25 Absolute Monocytes 0.62 k/cumm (0.11-0.7) 11/17/18 07:25 Absolute Eosinophils 0.00 k/cumm (0.0-0.7) 11/17/18 07:25 Absolute Basophils 0.00 k/cumm (0.0-0.2) 11/17/18 07:25 Differential Comment Manual differential 11/17/18 07:25 RBC Morphology Normal 11/17/18 07:25 PT 11.2 sec (9.3-11.0) H 11/16/18 06:04 INR 1.1 (0.9-1.1) 11/16/18 06:04 APTT 25.2 sec (21.0-31.4) 11/14/18 19:55 Fibrinogen 757 mg/dL (171-384) H 11/16/18 06:04 Sample Site Right radial 11/16/18 03:51 pCO2 43 mmHg (34-47) 11/16/18 03:51 pO2 98 mmHg (83-108) 11/16/18 03:51 O2 Saturation 97 % (94-98) 11/16/18 03:51 ABG pH 7.37 (7.35-7.45) 11/16/18 03:51 ABG HCO3 25 mmol/L (22-28) 11/16/18 03:51 ABG Total CO2 23 mmol/L (22-29) 11/16/18 03:51 ABG Base Excess -0.6 mmol/L (-3-3) 11/16/18 03:51 Oxygen Liter Flow 50% 5 peep L 11/16/18 03:51 FiO2 A/c 18 vt 420 % 11/16/18 03:51 Sodium 138 mmol/L (136-145) 11/17/18 07:25 Potassium 3.5 mmol/L (3.5-5.1) 11/17/18 07:25 Chloride 106 mmol/L (98-107) 11/17/18 07:25 Carbon Dioxide 21.8 mmol/L (21.0-32.0) 11/17/18 07:25 Anion Gap 10.2 mmol/L (3-11) 11/17/18 07:25 BUN 11 mg/dL (7-18) 11/17/18 07:25 Creatinine 0.78 mg/dL (0.55-1.02) 11/17/18 07:25 Estimated GFR/1.73 m2 >= 60.00 (mL/min/1.73m2) 11/17/18 07:25 Glucose 191 mg/dL (70-100) H 11/17/18 07:25 Hemoglobin A1c 7.6 % (4.5-6.2) H 11/17/18 07:25 Lactate 1.3 mmol/l (0.6-1.4) 11/17/18 07:25 Calcium 6.4 mg/dL (8.5-10.1) L* 11/17/18 07:25 Magnesium 1.7 mg/dL (1.8-2.4) L 11/17/18 07:25 Total Bilirubin 0.3 mg/dL (0.2-1.0) 11/17/18 07:25 AST 30 U/L (15-37) 11/17/18 07:25 ALT 20 U/L (12-78) 11/17/18 07:25 Alkaline Phosphatase 100 U/L (46-116) 11/17/18 07:25 NT-Pro-B Natriuret Pep 117 pg/mL (-299) 11/17/18 07:25 Total Protein 4.8 g/dL (6.4-8.2) L 11/17/18 07:25 Albumin 0.9 g/dL (3.4-5.0) L 11/17/18 07:25 Procalcitonin 2.1 ng/mL 11/17/18 07:25 Urine Color Yellow (Yellow) 11/15/18 14:09 Urine Clarity Clear 11/15/18 14:09 Urine pH 6.5 (5-8) 11/15/18 14:09 Ur Specific [place] 1.020 (1.005-1.025) 11/15/18 14:09 Urine Protein 100 mg/dL (Negative) H 11/15/18 14:09 Urine Ketones Negative mg/dL (Negative) 11/15/18 14:09 Urine Blood Small (Negative) H 11/15/18 14:09 Urine Nitrite Negative (Negative) 11/15/18 14:09 Urine Bilirubin Negative (Negative) 11/15/18 14:09 Urine Urobilinogen 0.2 EU/dL (Up TO 0.2) 11/15/18 14:09 Ur Leukocyte Esterase Negative (Negative) 11/15/18 14:09 Urine RBC 10-20 (0-2) H 11/15/18 14:09 Urine WBC 0-2 HPF (0-5) 11/15/18 14:09 Ur Epithelial Cells Negative HPF (Negative) 11/15/18 14:09 Urine Crystals Few amorphous HPF (Negative) 11/15/18 14:09 Urine Bacteria Rare HPF (Negative) 11/15/18 14:09 Urine Casts 5-10 wbc LPF (Negative) 11/15/18 14:09 Urine Mucus Negative (Negative) 11/15/18 14:09 Urine Other Moderate renal (Negative) 11/15/18 11:45 Ur Culture Indicated? Yes 11/15/18 14:09 Urine Glucose Negative mg/dL (Negative) 11/15/18 14:09
--- NOTE | 2018-11-17 16:45 | PGE_ITS ---
Date of Service Date of service: 11/17/18 Time of Service: 16:36 Assessment and Plan (1) Sepsis: Current visit: No Status: Acute Sepsis with intra-abdominal source from Small Bowel Perforations - Blood Cultures with No Growth X24 and 48 hours. Continue Zosyn, with Vancomycin also added for coverage of what is interpreted on CXR as a left sided infiltrate. Currently on pressor therapy with attempts at weaning Norepinephrine, with Phenylephrine being introduced in attempt to decrease patient's Tachycardia. Appears adequately hydrated now with CVP of 14 last checked and adequate UOP - IVFs were decreased (patient also appears largely volume overloaded). Patient continues to be febrile, with continued, significant, and mildly worsening leukocytosis with bandemia, still requiring pressor support. Now with potential for pulmonary infiltrate as well. Although stable, Suspect that her care may be prolonged, and that she would likely benefit from a higher level of care. This was discussed with SIGNAL WORKER HELPER who was in agreement. She was accepted in transfer at [facility] [place] today. (2) Small bowel perforation: Current visit: No Status: Acute S/p 2 small Bowel resections on 11/15. (3) DVT prophylaxis: Current visit: No Status: Acute SC Enoxaparin. Also on PPI therapy for GI Prophylaxis. Subjective Interval history since last seen: 38 year old woman originally admitted for an elective laparoscopic Tubal Ligation, readmitted with evidence of Bowel Per foration and Sepsis. Mrs. Kapadia had originally undergone an elective Laparoscopic b/l Salpingectomy on 11/12/2018, and initially admitted for postoperative pain control and observation. Following discharge on 11/13 she continued to experience significant pain despite her oral opiates that were prescribed postoperatively, and reported concurrent nausea and subjective fevers. Upon presentation to the ED she was found to have a significant leukocytosis, but with a fairly benign initial abdominal examination - referred at that time for admission (11/14/2018) for further evaluation and treatment. As her symptoms did not jose she was taken for a diagnostic Laparoscopy on 11/15, converted to an open exploratory laparotomy when evidence of likely bowel perforation was encountered. There were 2 distinct bowel perforations noted, with apparent spillage of colonic contents into the abdominal cavity. She underwent small bowel resection and repair, and moved to the ICU intubated and on Mechanical Ventilation. This morning Mrs. Kapadia continues to require pressor therapy, and remains on broad-spectrum antibiotics with Pip-Tazo as well as Vancomycin. Her Leukocytosis remains significant and slightly worse than yesterday, with continued and mildly worsening bandemia. Her UOP has improved and stabilized. No other events reported. Remains afebrile. Exam Narrative Exam Narrative: General: Patient is sedated and intubated. Neck: Supple. Left sided SC TLC noted. CV: Regular, tachycardic, S1S2, No rubs, murmurs, or gallops. Pulmonary: Clear to auscultation bilaterally on limited anterior and lateral exam Abdomen: Absent Bowel Sounds, distended. Dressing in place with Serosanguinous drainage noted. Vascular: + b/l upper and lower extremity edema Psych: Normal mood and affect. Objective Objective Clinical Data: Abnormal lab results 11/16/18 11/17/18 11/17/18 Range/Units 06:04 07:25 07:25 WBC (4.4-10.8) k/cumm RBC (4.00-5.20) m/cumm Hgb (12.0-15.5) g/dL Hct (36.0-46.0) % MCHC (32.0-36.0) g/dL MPV (8.0-11.0) fL Absolute Neutrophils (1.2-6.7) k/cumm Absolute Lymphocytes (1.2-3.4) k/cumm Fibrinogen 757 H (171-384) mg/dL Glucose 191 H (70-100) mg/dL Hemoglobin A1c (4.5-6.2) % Calcium 6.4 L* (8.5-10.1) mg/dL Magnesium 1.7 L (1.8-2.4) mg/dL Total Protein 4.8 L (6.4-8.2) g/dL Albumin 0.9 L (3.4-5.0) g/dL 11/17/18 11/17/18 Range/Units 07:25 07:25 WBC 31.10 H* (4.4-10.8) k/cumm RBC 3.62 L (4.00-5.20) m/cumm Hgb 10.2 L D (12.0-15.5) g/dL Hct 32.2 L (36.0-46.0) % MCHC 31.7 L (32.0-36.0) g/dL MPV 11.3 H (8.0-11.0) fL Absolute Neutrophils 28.92 H (1.2-6.7) k/cumm Absolute Lymphocytes 0.31 L (1.2-3.4) k/cumm Fibrinogen (171-384) mg/dL Glucose (70-100) mg/dL Hemoglobin A1c 7.6 H (4.5-6.2) % Calcium (8.5-10.1) mg/dL Magnesium (1.8-2.4) mg/dL Total Protein (6.4-8.2) g/dL Albumin (3.4-5.0) g/dL Vital Signs Temperature 36.3 C L 11/17/18 11:24 Temperature Source Temporal Artery Scan 11/17/18 11:24 Pulse 92 H 11/17/18 12:01 Pulse Rhythm Regular 11/15/18 15:21 Pulse 94 H 11/17/18 12:01 Respiratory Rate 17 11/17/18 12:01 Respiratory Effort 11/17/18 11:24 Respiratory Depth Normal 11/17/18 04:00 Respiratory Pattern Normal 11/17/18 04:00 Blood Pressure 106/53 L 11/17/18 12:01 Blood Pressure Mean 65 11/17/18 12:01 Blood Pressure Position Supine 11/17/18 11:24 Pulse Oximetry 97 11/17/18 12:01 Respiratory End-tidal CO2 32 11/17/18 12:01 Oxygen Delivery Method Mechanical Ventilator 11/17/18 11:57 Oxygen Flow Rate 0 11/17/18 11:57 Fraction of Inspired Oxygen (FIO2) 60 11/17/18 12:00 Pain Level 0 11/17/18 04:00 Comment 11/17/18 02:18 Intake & Output 11/16/18 11/17/18 11/17/18 23:59 11:59 23:59 Intake Total 5043.264 / 45566.892 4079.704 / 4143.937 64.233 / 4143.937 Output Total 1042 / 2107 1290 / 1415 125 / 1415 Balance 4001.264 / 84716.892 2789.704 / 2728.937 -60.767 / 2728.937 Weight 117.1 kg Intake: IV 4963.264 / 47690.892 4079.704 / 4143.937 64.233 / 4143.937 Injectate 80 / 155 Left Upper Anterior Abdomen 50 / 65 Right Upper Anterior Abdomen 30 / 90 Output: Gastric Drainage 550 / 650 150 / 275 125 / 275 Left Nare 550 / 650 150 / 275 125 / 275 Drainage 180 / 395 155 / 155 Left Upper Anterior Abdomen 100 / 240 50 / 50 Right Upper Anterior Abdomen 80 / 155 105 / 105 Urine 312 / 862 985 / 985 Other: Urine Color Light Susy Light Susy Urine Appearance Clear Clear Comment orellana patent Orellana intact and draining clear light susy urine. Gastric Occult Blood Left Nare Negative Negative Laboratory Results WBC 31.10 k/cumm (4.4-10.8) H* 11/17/18 07:25 RBC 3.62 m/cumm (4.00-5.20) L 11/17/18 07:25 Hgb 10.2 g/dL (12.0-15.5) L D 11/17/18 07:25 Hct 32.2 % (36.0-46.0) L 11/17/18 07:25 MCV 89.0 fL (80-95) 11/17/18 07:25 MCH 28.2 pg (27.0-33.0) 11/17/18 07:25 MCHC 31.7 g/dL (32.0-36.0) L 11/17/18 07:25 RDW 13.8 % (11.7-14.6) 11/17/18 07:25 Plt Count 256 x1000/uL (130-400) 11/17/18 07:25 MPV 11.3 fL (8.0-11.0) H 11/17/18 07:25 Immature Gran % See Differential 11/17/18 07:25 Neutrophils % 79.0 11/17/18 07:25 Band Neutrophils % 14.0 % 11/17/18 07:25 Lymphocytes % 1.0 11/17/18 07:25 Monocytes % 2.0 11/17/18 07:25 Eosinophils % 0.0 11/17/18 07:25 Basophils % 0.0 11/17/18 07:25 Metamyelocytes % 2.0 % 11/17/18 07:25 Myelocytes % 2.0 % 11/17/18 07:25 Absolute Neutrophils 28.92 k/cumm (1.2-6.7) H 11/17/18 07:25 Absolute Lymphocytes 0.31 k/cumm (1.2-3.4) L 11/17/18 07:25 Absolute Monocytes 0.62 k/cumm (0.11-0.7) 11/17/18 07:25 Absolute Eosinophils 0.00 k/cumm (0.0-0.7) 11/17/18 07:25 Absolute Basophils 0.00 k/cumm (0.0-0.2) 11/17/18 07:25 Differential Comment Manual differential 11/17/18 07:25 RBC Morphology Normal 11/17/18 07:25 PT 11.2 sec (9.3-11.0) H 11/16/18 06:04 INR 1.1 (0.9-1.1) 11/16/18 06:04 APTT 25.2 sec (21.0-31.4) 11/14/18 19:55 Fibrinogen 757 mg/dL (171-384) H 11/16/18 06:04 Sample Site Right radial 11/16/18 03:51 pCO2 43 mmHg (34-47) 11/16/18 03:51 pO2 98 mmHg (83-108) 11/16/18 03:51 O2 Saturation 97 % (94-98) 11/16/18 03:51 ABG pH 7.37 (7.35-7.45) 11/16/18 03:51 ABG HCO3 25 mmol/L (22-28) 11/16/18 03:51 ABG Total CO2 23 mmol/L (22-29) 11/16/18 03:51 ABG Base Excess -0.6 mmol/L (-3-3) 11/16/18 03:51 Oxygen Liter Flow 50% 5 peep L 11/16/18 03:51 FiO2 A/c 18 vt 420 % 11/16/18 03:51 Sodium 138 mmol/L (136-145) 11/17/18 07:25 Potassium 3.5 mmol/L (3.5-5.1) 11/17/18 07:25 Chloride 106 mmol/L (98-107) 11/17/18 07:25 Carbon Dioxide 21.8 mmol/L (21.0-32.0) 11/17/18 07:25 Anion Gap 10.2 mmol/L (3-11) 11/17/18 07:25 BUN 11 mg/dL (7-18) 11/17/18 07:25 Creatinine 0.78 mg/dL (0.55-1.02) 11/17/18 07:25 Estimated GFR/1.73 m2 >= 60.00 (mL/min/1.73m2) 11/17/18 07:25 Glucose 191 mg/dL (70-100) H 11/17/18 07:25 Hemoglobin A1c 7.6 % (4.5-6.2) H 11/17/18 07:25 Lactate 1.3 mmol/l (0.6-1.4) 11/17/18 07:25 Calcium 6.4 mg/dL (8.5-10.1) L* 11/17/18 07:25 Magnesium 1.7 mg/dL (1.8-2.4) L 11/17/18 07:25 Total Bilirubin 0.3 mg/dL (0.2-1.0) 11/17/18 07:25 AST 30 U/L (15-37) 11/17/18 07:25 ALT 20 U/L (12-78) 11/17/18 07:25 Alkaline Phosphatase 100 U/L (46-116) 11/17/18 07:25 NT-Pro-B Natriuret Pep 117 pg/mL (-299) 11/17/18 07:25 Total Protein 4.8 g/dL (6.4-8.2) L 11/17/18 07:25 Albumin 0.9 g/dL (3.4-5.0) L 11/17/18 07:25 Procalcitonin 2.1 ng/mL 11/17/18 07:25 Urine Color Yellow (Yellow) 11/15/18 14:09 Urine Clarity Clear 11/15/18 14:09 Urine pH 6.5 (5-8) 11/15/18 14:09 Ur Specific [place] 1.020 (1.005-1.025) 11/15/18 14:09 Urine Protein 100 mg/dL (Negative) H 11/15/18 14:09 Urine Ketones Negative mg/dL (Negative) 11/15/18 14:09 Urine Blood Small (Negative) H 11/15/18 14:09 Urine Nitrite Negative (Negative) 11/15/18 14:09 Urine Bilirubin Negative (Negative) 11/15/18 14:09 Urine Urobilinogen 0.2 EU/dL (Up TO 0.2) 11/15/18 14:09 Ur Leukocyte Esterase Negative (Negative) 11/15/18 14:09 Urine RBC 10-20 (0-2) H 11/15/18 14:09 Urine WBC 0-2 HPF (0-5) 11/15/18 14:09 Ur Epithelial Cells Negative HPF (Negative) 11/15/18 14:09 Urine Crystals Few amorphous HPF (Negative) 11/15/18 14:09 Urine Bacteria Rare HPF (Negative) 11/15/18 14:09 Urine Casts 5-10 wbc LPF (Negative) 11/15/18 14:09 Urine Mucus Negative (Negative) 11/15/18 14:09 Urine Other Moderate renal (Negative) 11/15/18 11:45 Ur Culture Indicated? Yes 11/15/18 14:09 Urine Glucose Negative mg/dL (Negative) 11/15/18 14:09
--- NOTE | 2018-11-18 12:55 | DSE_ITS ---
Date of service: 11/17/18 Time of Service: 14:54 DS: Diagnosis Discharge Diagnosis (1) Sepsis: Status: Acute (2) Small bowel perforation: Status: Acute (3) DVT prophylaxis: Status: Acute Discharge Plan Disposition Patient Disposition: [facility] Condition: Critical Discharge Details Reason For Visit: BOWEL PERFORATION, SEPSIS Admit Date/Time: 11/14/18 23:26 Admit Provider: Carlos Dumont Attending Provider: Carlos Dumont Primary Care Provider: Dick Estevez Hospital Course Hospital Course: This is a 38 year old that was admitted on 11/14 with severe onset abdominal pain and leukocytosis question sepsis. She was two days following Laparoscopic bilateral salpingectomy for sterilization. In the emergency dept she underwent CT of the Chest/Abd and Pelvis showing bilateral small pleural effusions and some inflammatory changes possibly enteritis. She was admitted for IV antibiotics and placed on Zosyn. Her abdominal pain continued and leukocytosis increased. On HD 2 her constellation of symptoms prompted a second look laparoscopy which revealed two small bowel perforations. The procedure was converted to an exploratory laparotomy with segmental resections and reanastomoses of the small bowel and the patient was transferred to ICU remaining intubated. Her ICU course was complicated by continued hypotension and worsening sepsis. On HD 4 POD 5 and 2 Vancomycin was added to her regimen and decision was made for transfer to tertiary care center. Dr. Carlos Burk at [facility] was the accepting provider. The pt was transported via ambulance for direct admit to [facility] ICU. Home Meds and New Rx's Prescriptions: New fentanyl citrate (PF) 50 mcg/mL Solution 100 mcg IVP Q1H PRN PRNQty: 1 RF: 0 enoxaparin [Lovenox] 40 mg/0.4 mL Syringe 40 mg subcut Q24H PRNQty: 10 RF: 0 Continued oxycodone 5 mg tablet 5 mg PO Q6H MDD 4 PRN (Reason: pain) Qty: 20 RF: 0 cetirizine [Zyrtec] 10 MG tablet 10 mg PO DAILY Qty: 30 RF: 3 hydromorphone [Dilaudid] 2 mg tablet 2 mg PO Q6H MDD 4 PRN (Reason: pain) Qty: 4 RF: 0 Discontinued Vyvanse 20 mg capsule 20 mg PO DAILY RF: 0 oxycodone-acetaminophen [Percocet] 5-325 mg tablet 1 tab PO Q6H MDD 4 PRN (Reason: pain) Qty: 10 RF: 0 trazodone 50 MG tablet 50 mg PO PRN Qty: 30 RF: 2 Discharge Instructions Additional Instructions: Record of pt's hospital course and labs was provided to transport team. DI images were transmitted electronically Activity:: bedrest Equipment/Supplies:: pt intubated - assisted ventilation Diet:: NPO Discharge Orders Discharge Orders: Discharge Order (Routine); Ordered 11/17/18 Ordered By: Carlos Dumont Discharge Data Discharge Date/Time-TO BE ENTERED AT DEPARTURE: 11/17/18 12:45 Discharge Comment: Transferred to [facility] w/ [facility] ambulance attendents Exam Const General: patient mechanically ventilated Nutritional Appearance: edematous Orientation: obtunded Neck Neck: normal visual inspection and other (Left-sided subclavian catheter) Chest Chest: normal palpation of entire chest wall Resp Auscultation: clear to auscultation bilaterally Cardio Palpation: normal PMI Rate: regular rate Rhythm: regular rhythm Heart Sounds: S1 normal and S2 normal GI Inspection: distended and other (Abdominal dressing intact no new drainage noted) Auscultation: absent bowel sounds Other: David-Granados drains with serosanguineous drainage noted General: deferred Extrem General: edema Laterality: bilateral (Upper and lower extremity nonpitting edema) Psych Other: Patient remains sedated. DS: Data Vitals/I&O Vitals and I&O: Vital Signs Temperature 97.3 F L 11/17/18 11:24 Temperature Source Temporal Artery Scan 11/17/18 11:24 Pulse 92 H 11/17/18 12:01 Pulse Rhythm Regular 11/15/18 15:21 Pulse 94 H 11/17/18 12:01 Respiratory Rate 17 11/17/18 12:01 Respiratory Effort 11/17/18 11:24 Respiratory Depth Normal 11/17/18 04:00 Respiratory Pattern Normal 11/17/18 04:00 Blood Pressure 106/53 L 11/17/18 12:01 Blood Pressure Mean 65 11/17/18 12:01 Blood Pressure Position Supine 11/17/18 11:24 Pulse Oximetry 97 11/17/18 12:01 Respiratory End-tidal CO2 32 11/17/18 12:01 Oxygen Delivery Method Mechanical Ventilator 11/17/18 11:57 Oxygen Flow Rate 0 11/17/18 11:57 Fraction of Inspired Oxygen (FIO2) 60 11/17/18 12:00 Pain Level 0 11/17/18 04:00 Comment 11/17/18 02:18 Intake & Output 11/17/18 11/18/18 11/18/18 23:59 11:59 23:59 Intake Total 64.233 / 4143.937 Output Total 125 / 1415 Balance -60.767 / 2728.937 Intake: IV 64.233 / 4143.937 Output: Gastric Drainage 125 / 275 Left Nare 125 / 275 Labs on day of discharge: Preliminary micro results at discharge 11/14/18 21:00 Blood Culture - Preliminary Blood NO GROWTH 72 HOURS 11/14/18 20:50 Blood Culture - Preliminary Blood NO GROWTH 72 HOURS 11/15/18 18:45 Blood Culture - Preliminary Blood NO GROWTH 48 HOURS 11/15/18 18:27 Blood Culture - Preliminary Blood NO GROWTH 48 HOURS PFS Medical History Post-op pain (Acute) History of female sterilization (Acute) Adjustment disorder with anxiety (Acute 12/26/16) Allergic rhinitis (Acute 10/11/14) Asthma (Acute 10/11/14) 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) Personal history of cervical dysplasia (Acute 07/13/16) Contraceptive management (Resolved) IUD contraception (Resolved 03/06/16) Iron deficiency anemia (Resolved) Request for sterilization (Resolved) Left shoulder pain Rhinitis Surgical History Status post bilateral salpingectomy (Acute) History of colonoscopy (Resolved) Cervical Conization/LEEP Family History Mother Alcohol abuse Essential hypertension Father Diabetes Arthritis Sister Arthritis Asthma Social History Smoking/Tobacco Use Status: Never Alcohol Intake: current Alcohol Intake frequency: other Substance use type: does not use Do you feel safe at home: Yes Do you feel safe in your relationship?: Yes History History 5 Para 3 Hx # Term Pregnancies 3 Multiple births 1 Hx # Pregnancies 0 Ectopic pregnancies 0 AB induced 0 Hx Number of Living Children 4 AB spontaneous 1 Past Pregnancies Del. Date GA/Weeks # Outcome Route Wgt Sex Labor Lgth Anesthesia Location Prov Complic 12/07/04 38 No Successful vaginal 7 lb 6 oz Male [facility] 08/26/06 40 No Successful vaginal 8 lb [address] Rick 11/07/09 8 No Unsuccessful vaginal 03/18/13 38 Yes Successful vaginal Female [facility] 02/28/17 37 No Successful vaginal 7 lb 8 oz Female Delivery Date: 02/28/17 On 11/10/18 @ 22:47 Lolly Guthrie [facility] Delivery Date: 03/18/13 On 11/10/18 @ 22:47 Lolly Guthrie 2nd twin [id number] Delivery Date: 11/07/09 On 11/10/18 @ 22:39 Lolly Guthrie SAB @ 8w EGA. No complications. Delivery Date: 08/26/06 No notes to display Delivery Date: 12/07/04 No notes to display
== END 2018-11-17 11:27 | disposition short-term general hospital (02) | DRG 907 ==
LOC: ER 23:58 → MS 11-15 00:56 → ICU 11-17 11:45 → MS 12-04 15:53 → ICU 12-04 16:02
PROVIDERS: General Practice; Internal Medicine; Surgery; Admitting Provider Obstetrics & Gynecology; Emergency Provider Emergency Medicine; PCP Neuromusculoskeletal Medicine & OMM; Visit Provider Obstetrics & Gynecology Gynecology
PROC: BW03ZZZ Plain Radiography of Chest (ICD-10-PCS; CPT 49320; principal; 2018-11-15 19:00)
PROC: 0DB80ZZ Excision of Small Intestine, Open Approach (ICD-10-PCS; CPT 49000; 2018-11-15 19:00)
DX: K91.72 Accidental puncture and laceration of a digestive system organ or structure during other procedure (principal); A41.9 Sepsis, unspecified organism; J90 Pleural effusion, not elsewhere classified; Z90.49 Acquired absence of other specified parts of digestive tract; I95.81 Postprocedural hypotension; J06.9 Acute upper respiratory infection, unspecified; Y65.8 Other specified misadventures during surgical and medical care; R91.8 Other nonspecific abnormal finding of lung field; Z78.1 Physical restraint status; G89.18 Other acute postprocedural pain; R10.2 Pelvic and perineal pain; Z90.79 Acquired absence of other genital organ(s); Z30.2 Encounter for sterilization; Z30.432 Encounter for removal of intrauterine contraceptive device; N83.8 Other noninflammatory disorders of ovary, fallopian tube and broad ligament
CPT/HCPCS: 44120; 44121; 49320; 36556; 36410; 36415; 36591; 71045; 71275; 74177; 80048; 80053; 82805; 84145; 85027; 85384; 87040; 93005; 96361; 96365; 96367; 96375; 99223; 99232; 99233; 99238; 99253; 99285; 99291; J1650; 36600; 71046; 76830; 81003; 81015; 83036; 83605; 83735; 83880; 85025; 85610; 85730; 87086; 88302; 88307; 93010; 94002; G0378; J0131; J0610; J1100; J1885; J2060; J2250; J2370; J2405; J2543; J3010; J3490

== ENCOUNTER 2024-06-22 15:16 | Outpatient (CLI) | payer MEDICAID, SELFPAY ==
--- NOTE | 2024-06-22 11:00 | DI.RAD_ITS ---
Exam(s) XR ANKLE RT COMPLETE EXAM: XR ANKLE RT COMPLETE CLINICAL HISTORY: R ankle injury. TECHNIQUE: 2D digital imaging was performed of the right ankle. Four images were obtained. AP, lat eral and oblique views were obtained. COMPARISON: CR XR FOOT COMPLETE MIN 3V RT from 03/04/2024 FINDINGS: BONES: No acute fracture is present. No bony destructive lesion is seen. JOINTS: The ankle mortise is normally aligned. SOFT TISSUE: Normal. IMPRESSION: Unremarkable radiographs of the right ankle. DATA REPOSITORY: RADIATION DOSE DELIVERED:
== END 2024-06-22 15:17 | disposition home or self-care (01) ==
LOC: DIORS 15:17
PROVIDERS: PCP Nurse Practitioner Family; Visit Provider Physician Assistant
DX: S99.911A Unspecified injury of right ankle, initial encounter (principal); X58.XXXA Exposure to other specified factors, initial encounter
CPT/HCPCS: 73610